=== PATIENT | male | born 1950 | race Caucasian/White ===

== ENCOUNTER 2017-07-20 18:49 | Inpatient (IN) | payer MEDICARE, MEDICAID ==
[2017-07-20 19:32] LABS: ABS Basophils 0.1 10^3/ul (0-0.2); ABS Eosinophils 0 10^3/ul (0-0.6); ABS Lymphocytes 1.1 10^3/ul (1.0-4.8); ABS Monocytes 1.5 10^3/ul (0-0.8); ABS Neutrophils 13.5 10^3/ul (1.5-7.7); ABS Nucleated RBC 0 10^3/ul; Eosinophil % 0.2 % (0-6); Hematocrit 33 % (42-52); Mean Corpuscular HGB Conc 33 g/dl (31-36); Mean Corpuscular Hemoglobin 27 pg (27-31); Mean Corpuscular Volume 81 fL (80-94); Mean Platelet Volume 8 um3 (7.4-10.4); Nucleated Red Blood Cells % 0; Platelet Count 288 10^3/ul (150-450); Red Cell Distribution Width 14 % (10.5-15); White Blood Count 16.2 10^3/ul (3.5-10.8)
[2017-07-20 19:40] LABS: INR 1.24 (0.77-1.02)
[2017-07-20 19:45] LABS: EGFR Non-African American 73.3 (>60)
--- NOTE | 2017-07-20 20:00 | RAD ---
Indication: Sepsis. Diabetic with prior lower extremity amputations. Comparison: No relevant prior exams available on the [facility] [place] for comparison. Technique: Upright AP 1930 hours Report: 0.8 cm nodule at the LEFT upper lung zone versus focus of costochondral calcification at the third rib. The lungs and pleural spaces are otherwise clear. The heart, pulmonary vasculature, and mediastinal contours are unremarkable. Negative for free air beneath the diaphragm. IMPRESSION: 1. No evidence for pneumonia. 2. Potential 0.8 cm LEFT upper lung zone pulmonary nodule. In absence of prior exams to document stability consider nonemergent oblique and apical lordotic radiographs or CT for further assessment.
[2017-07-20] MEDS ORDERED: Albuterol 2.5 MG/3 ML NEB.SOL* (0.083%) INH PRN (20:12)
[2017-07-20] MEDS ORDERED: Acetaminophen TAB* 325 MG PO PRN (20:12)
[2017-07-20] MEDS ORDERED: oxyCODONE TAB* 5 MG TAB PO PRN (20:12)
[2017-07-20] MEDS ORDERED: Ondansetron INJ* 2 MG/ML VIAL IV PRN (20:12)
[2017-07-20] MEDS ORDERED: CMCS: Melatonin (NF) 3 MG TAB PO PRN (20:12)
[2017-07-20] MEDS ORDERED: Gadoteridol* (CONTRAST) 279.3 MG/ML 10 ML IV ONE (20:30)
[2017-07-20] MEDS ORDERED: Vancomycin per Pharmacy* NOTE FOLLOW UP SCH (21:00)
[2017-07-20] MEDS ORDERED: Vancomycin(*) 1,250 MG IV x ONCE IVPB ONE ×2 (21:00)
--- NOTE | 2017-07-20 21:53 | RAD ---
Indication: Possible septic emboli. Assess for osteomyelitis of the RIGHT ankle and foot. Comparison: No relevant prior exams available on the [facility] PACS for comparison. Technique: [email or web address] [place] 1.5 Sarah [id number] with GEM suite. Noncontrast MRI of the RIGHT ankle and foot limited to multiplanar T1 and inversion recovery series. Report: Artifact most consistent with soft tissue gas at the forefoot centered at the second interdigital space extending as far proximal as the distal diaphyses as far lateral as the third interdigital space. Diffuse soft tissue edema throughout the superficial subcutaneous tissue plane as well as the intrinsic skeletal musculature of the foot and ankle as well as the visualized lower leg without evidence for a loculated abscess collection. There is bone marrow edema at the first proximal phalanx, second digit from the proximal diaphysis of the metatarsal through the distal phalanx, third digit from the base of the metatarsal through the distal phalanx, fourth digit from the distal metaphysis of the metatarsal through the distal phalanx. Only limited partial decrease in normal T1 marrow intensity in the same distribution. Negative for bone marrow edema at the medial aspect of the medial cuneiform and the mid to medial aspect of the navicula without compelling decreased T1 marrow hyperintensity. No fracture evident. Negative for significant joint effusions. IMPRESSION: 1. Extensive soft tissue inflammatory change involving the subcutaneous tissue plane and skeletal musculature of the visualized ankle and foot with associated soft tissue gas at the forefoot as described. No loculated abscess collection evident. 2. Given the clinical context the constellation of signal abnormalities is most consistent with osteomyelitis at the forefoot involving the first, second, third, and fourth digits to varying extents as described. Less compelling marrow signal change at the medial cuneiform and navicular may represent reactive marrow edema or early osteomyelitis.
--- NOTE | 2017-07-20 21:53 | RAD ---
Indication: Possible septic emboli. Assess for osteomyelitis of the RIGHT ankle and foot. Comparison: No relevant prior exams available on the [facility] [place] for comparison. Technique: [employer] [place] 1.5 Sarah [id number] with GEM suite. Noncontrast MRI of the RIGHT ankle and foot limited to multiplanar T1 and inversion recovery series. Report: Artifact most consistent with soft tissue gas at the forefoot centered at the second interdigital space extending as far proximal as the distal diaphyses as far lateral as the third interdigital space. Diffuse soft tissue edema throughout the superficial subcutaneous tissue plane as well as the intrinsic skeletal musculature of the foot and ankle as well as the visualized lower leg without evidence for a loculated abscess collection. There is bone marrow edema at the first proximal phalanx, second digit from the proximal diaphysis of the metatarsal through the distal phalanx, third digit from the base of the metatarsal through the distal phalanx, fourth digit from the distal metaphysis of the metatarsal through the distal phalanx. Only limited partial decrease in normal T1 marrow intensity in the same distribution. Negative for bone marrow edema at the medial aspect of the medial cuneiform and the mid to medial aspect of the navicula without compelling decreased T1 marrow hyperintensity. No fracture evident. Negative for significant joint effusions. IMPRESSION: 1. Extensive soft tissue inflammatory change involving the subcutaneous tissue plane and skeletal musculature of the visualized ankle and foot with associated soft tissue gas at the forefoot as described. No loculated abscess collection evident. 2. Given the clinical context the constellation of signal abnormalities is most consistent with osteomyelitis at the forefoot involving the first, second, third, and fourth digits to varying extents as described. Less compelling marrow signal change at the medial cuneiform and navicular may represent reactive marrow edema or early osteomyelitis.
--- NOTE | 2017-07-20 22:28 | ED ---
Osiel Maria Julia, scribed for Chris Costello MD on 07/20/17 at 1919 . Complex/Multi-Sys Presentation - HPI Summary HPI Summary: This patient is a 67 year [facility] chief [facility] of R gangrenous toes. Patient arrived from [facility] ED after patient went to his PCP this morning after adult protective services intervention. The patient rates the pain 2/10 in severity. Patient reports fever. - History Of Current Complaint Time Seen by Provider: 07/20/17 18:58 Hx Obtained From: Patient Timing: Constant Severity Currently: Mild - 2/10 pain intensity Location: Pain At: - R foot Associated Signs And Symptoms: Positive: Fever - Allergies/Home Medications Allergies/Adverse Reactions: Allergies Allergy/AdvReac Type Severity Reaction Status Date / Time contrast dye Allergy Unknown Uncoded 07/20/17 19:10 Reaction Details Home Medications: Home Medications NK [No Home Medications Reported] 07/20/17 [History Confirmed 07/20/17] PMH/Surg Hx/FS Hx/Imm Hx Endocrine/Hematology History: Reports: Hx Diabetes Musculoskeletal History: Reports: Hx Orthopedic Injury - removal of R hand Infectious Disease History: No Infectious Disease History: Denies: Traveled Outside the [place] in Last 30 Days - Social History Alcohol Use: None Hx Substance Use: No Hx Tobacco Use: Yes Smoking Status (MU): Current Every Day Smoker Review of Systems Positive: Fever. Negative: Chills Negative: Erythema Negative: Sore Throat Negative: Chest Pain Negative: Shortness Of Breath, Cough Negative: Abdominal Pain, Vomiting, Nausea Negative: dysuria, hematuria Positive: Other - R foot pain. Negative: Myalgia, Edema Negative: Rash Neurological: Other - negative - dizziness All Other Systems Reviewed And Are Negative: Yes Physical Exam - Summary Physical Exam Summary: NORMAL PHYSICAL EXAM ADULT (6+ years) Constitutional: Well-developed, Well-nourished, Alert. (-) Distressed Skin: Warm, Dry HENT: Normocephalic; Atraumatic Eyes: Conjunctiva normal Neck: Musculoskeletal ROM normal neck. (-) JVD, (-) Stridor, (-) Tracheal deviation Cardio: Rhythm regular, rate normal, Heart sounds normal; Intact distal pulses; The pedal pulses are 2+ and symmetric. Radial pulses are 2+ and symmetric. (-) Murmur Pulmonary/Chest wall: Effort normal. (-) Respiratory distress, (-) Wheezes, (-) Rales Abd: Soft, (-) Tenderness, (-) Distension, (-) Guarding, (-) Rebound Musculoskeletal: 2nd and 3rd toe completely necrotic, Necrosis over plantar aspect of metatarsals, desquamation and erythema up to ankle Lymph: (-) Cervical adenopathy Neuro: Alert, Oriented x3 Psych: Mood and affect Normal Vital Signs On Initial Exam: Initial Vitals Temp Pulse Resp BP Pulse Ox 97.4 F 89 16 146/68 97 07/20/17 19:03 07/20/17 19:03 07/20/17 19:03 07/20/17 19:03 07/20/17 19:03 Diagnostics - Vital Signs Vital Signs Temp Pulse Resp BP Pulse Ox 07/20/17 19:03 97.4 F 89 16 146/68 97 - Laboratory Lab Results: Lab Results 07/20/17 07/20/17 07/20/17 Range/Units 19:15 19:15 19:15 WBC 16.2 H (3.5-10.8) 10^3/ul RBC 4.10 (4.0-5.4) 10^6/ul Hgb 11.0 L (14.0-18.0) g/dl Hct 33 L (42-52) % MCV 81 (80-94) fL MCH 27 (27-31) pg MCHC 33 (31-36) g/dl RDW 14 (10.5-15) % Plt Count 288 (150-450) 10^3/ul MPV 8 (7.4-10.4) um3 Neut % (Auto) 83.5 H (38-83) % Lymph % (Auto) 7.0 L (25-47) % [place] % (Auto) 9.0 (1-9) % Eos % (Auto) 0.2 (0-6) % Baso % (Auto) 0.3 (0-2) % Absolute Neuts (auto) 13.5 H (1.5-7.7) 10^3/ul Absolute Lymphs (auto) 1.1 (1.0-4.8) 10^3/ul Absolute Monos (auto) 1.5 H (0-0.8) 10^3/ul Absolute Eos (auto) 0 (0-0.6) 10^3/ul Absolute Basos (auto) 0.1 (0-0.2) 10^3/ul Absolute Nucleated RBC 0 10^3/ul Nucleated RBC % 0 ESR (0-40) mm/Hr INR (Anticoag Therapy) 1.24 H (0.77-1.02) APTT 31.9 (26.0-36.3) seconds Sodium 129 L (133-145) mmol/L Potassium 4.1 (3.5-5.0) mmol/L Chloride 98 L (101-111) mmol/L Carbon Dioxide 22 (22-32) mmol/L Anion Gap 9 (2-11) mmol/L BUN 21 (6-24) mg/dL Creatinine 1.02 (0.67-1.17) mg/dL Est GFR ( Amer) 94.3 (>60) Est GFR (Non-Af Amer) 73.3 (>60) BUN/Creatinine Ratio 20.6 H (8-20) Glucose 221 H (70-100) mg/dL Hemoglobin A1c (4.0-5.6) % Lactic Acid (0.5-2.0) mmol/L Calcium 7.8 L (8.6-10.3) mg/dL Total Bilirubin 0.70 (0.2-1.0) mg/dL AST 23 (13-39) U/L ALT 19 (7-52) U/L Alkaline Phosphatase 112 H (34-104) U/L Troponin I 0.02 (<0.04) ng/mL C-Reactive Protein 217.65 H (< 5.00) mg/L Total Protein 6.1 L (6.4-8.9) g/dL Albumin 2.4 L (3.2-5.2) g/dL Globulin 3.7 (2-4) g/dL Albumin/Globulin Ratio 0.6 L (1-3) Prealbumin 4 L (18-38) mg/dL 07/20/17 07/20/17 07/20/17 Range/Units 19:15 19:15 19:15 WBC (3.5-10.8) 10^3/ul RBC (4.0-5.4) 10^6/ul Hgb (14.0-18.0) g/dl Hct (42-52) % MCV (80-94) fL MCH (27-31) pg MCHC (31-36) g/dl RDW (10.5-15) % Plt Count (150-450) 10^3/ul MPV (7.4-10.4) um3 Neut % (Auto) (38-83) % Lymph % (Auto) (25-47) % [place] % (Auto) (1-9) % Eos % (Auto) (0-6) % Baso % (Auto) (0-2) % Absolute Neuts (auto) (1.5-7.7) 10^3/ul Absolute Lymphs (auto) (1.0-4.8) 10^3/ul Absolute Monos (auto) (0-0.8) 10^3/ul Absolute Eos (auto) (0-0.6) 10^3/ul Absolute Basos (auto) (0-0.2) 10^3/ul Absolute Nucleated RBC 10^3/ul Nucleated RBC % ESR 115 H (0-40) mm/Hr INR (Anticoag Therapy) (0.77-1.02) APTT (26.0-36.3) seconds Sodium (133-145) mmol/L Potassium (3.5-5.0) mmol/L Chloride (101-111) mmol/L Carbon Dioxide (22-32) mmol/L Anion Gap (2-11) mmol/L BUN (6-24) mg/dL Creatinine (0.67-1.17) mg/dL Est GFR ( Amer) (>60) Est GFR (Non-Af Amer) (>60) BUN/Creatinine Ratio (8-20) Glucose (70-100) mg/dL Hemoglobin A1c 8.8 H (4.0-5.6) % Lactic Acid 0.9 (0.5-2.0) mmol/L Calcium (8.6-10.3) mg/dL Total Bilirubin (0.2-1.0) mg/dL AST (13-39) U/L ALT (7-52) U/L Alkaline Phosphatase (34-104) U/L Troponin I (<0.04) ng/mL C-Reactive Protein (< 5.00) mg/L Total Protein (6.4-8.9) g/dL Albumin (3.2-5.2) g/dL Globulin (2-4) g/dL Albumin/Globulin Ratio (1-3) Prealbumin (18-38) mg/dL Result Diagrams: 07/20/17 19:15 07/20/17 19:15 Lab Statement: Any lab studies that have been ordered have been reviewed, and results considered in the medical decision making process. - Radiology CXR Radiology Interpretation Completed By: Radiologist - 1. No evidence for pneumonia. 2. Potential 0.8 cm LEFT upper lung zone pulmonary nodule. In absence of prior exams to document stability consider nonemergent oblique and apical lordotic radiographs or CT for further assessment. ED Physician has reviewed this report. - EKG 19:13 Cardiac Rate: NL EKG Rhythm: Sinus Rhythm - at 85 BPM EKG Interpretation: reveals RBBB and no presnt STEMI Complex Multi-Symp Course/Dx - Diagnoses Provider Diagnoses: Gangrene of foot, Sepsis - Physician Notifications Discussed Care Of Patient With: Dr. Jacob, orthopedics - Orthopedics Time Discussed With Above Provider: 07:51 Instructed by Provider To: Other - recommends hospitalist admission Discharge - Discharge Plan Condition: Good Disposition: ADMITTED TO [facility] Referrals: Ashish Cavanaugh DO [Primary Care Provider] - The documentation as recorded by the Osiel islas Julia accurately reflects the service I personally performed and the decisions made by , Chris Costello MD.
[2017-07-20] MEDS: fentaNYL* 50 MCG/ML 2 ML VIAL (100 MCG VIAL) IV SLOW PU PRN (23:51)
[2017-07-21] MEDS: NS 0.9% 1000 ML* 1,000 ML IV SCH ×2 (00:15→13:35)
[2017-07-21] MEDS: Docusate CAP* 100 MG PO SCH ×3 (00:16→21:51)
[2017-07-21] MEDS: Vancomycin(*) 1,000 MG in NS 0.9% 250 ML* 250 ML IVPB SCH ×3 (02:38→19:46)
[2017-07-21] MEDS: fentaNYL* 50 MCG/ML 2 ML VIAL (100 MCG VIAL) IV SLOW PU PRN (02:47)
--- NOTE | 2017-07-21 03:29 | HP ---
H&P (Free Text) History and Physical: PCP: Suha Cavanaugh MD Date/Time: 07/20/20171999 CC: 'My foot's rotting.' HPI: Mr Subramanian is a 67YO exceedingly poor historian HX DM2 & HTN who had not seen his PCP for ~1 year and reports having run out of all his medications ~ 2months ago. He was reportedly brought to [facility] ED by APS with a fever of 101.3F and tachycardia the 110s. He was felt to be severely septic due to a diabetic foot ulcer and Mar Jacob MD orthopedic surgery was consulted and accepted transfer ED to ED with our OR team notified. However upon arrival he was not meeting sepsis criteria and so the Hospitalist service was consulted for initial management. Mr Subramanian first reported his right foot began to look bad 'about a week ago', but when informed it appeared to have been going on longer admits 'maybe 3 or 4 weeks'. The 2nd & 3rd toes are black with dry gangrene and the entire foot is angry red. Eschar extends to the base of the toes dorsally and to the mid- plantar area. He denies pain, but admits to F/C & sweats recently but cannot give a more accurate time. He denies N/V, diarrhea, chest pain, SOB, palpitations, or other issues. He was given 2gm cefepime and 1500mg vancomycin prior to transfer. 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 L 1st toe amputation SocHx: 1/2 PPD hand-rolled cigarettes, denies alcohol & recreational drugs currently but admits to remote HX of 'speed'; , lives alone, 4 daughters (one from poisoning), 1 son (estranged); disabled; full code status FamHx: reviewed, non-contributory to his presentation ROS: as above, otherwise reviewed and all were negative vitals: Vital Signs Temp 36.9 C 07/20/17 23:24 Pulse 74 07/20/17 23:24 Resp 18 07/21/17 02:47 BP 125/65 07/20/17 23:24 Pulse Ox 97 07/20/17 23:24 Intake & Output 07/20/17 07/20/17 07/21/17 11:59 23:59 11:59 Weight 80.286 kg Constitutional: NAD, normally developed, well-nourished, unkempt, malodorous white male HEENM: atraumatic; sclera/conjunctiva: anicteric/clear; hearing: clinically mildly decreased; oropharynx: clear, mucosa tacky Neck: soft tissue: non-tender; thyroid: normal Pulmonary: clear to auscultation bilaterally, fair to good aeration, no accessory muscle use CV: RR/RR, normal S1S2, no carotid bruit, no jugular venous distention, 1+DP L, absent pedal pulses on R, 1+ R pedal edema Abdominal: soft, non-distended, non-tender, no rebound/guarding/rigidity, normoactive bowel sounds, no hepatosplenomegaly or masses, no costovertebral angle tenderness Musculoskeletal: general: R below the elbow amputation, L 1st toe amputation Integumental: R 2nd & 3rd toes are black with dry gangrene and the entire foot is angry red. Eschar extends to the base of the toes dorsally and to the mid- plantar area. Psychiatric orientation: AA&O to PPS affect: uninterested mood: cooperative eye contact: fair content: questionable reliability responses: timely, lacking expressions of understanding of the seriousness of the situation insight: very poor Testing: Lab Results 07/20/17 07/20/17 07/20/17 Range/Units 19:15 19:15 19:15 WBC 16.2 H (3.5-10.8) 10^3/ul RBC 4.10 (4.0-5.4) 10^6/ul Hgb 11.0 L (14.0-18.0) g/dl Hct 33 L (42-52) % MCV 81 (80-94) fL MCH 27 (27-31) pg MCHC 33 (31-36) g/dl RDW 14 (10.5-15) % Plt Count 288 (150-450) 10^3/ul MPV 8 (7.4-10.4) um3 Neut % (Auto) 83.5 H (38-83) % Lymph % (Auto) 7.0 L (25-47) % [place] % (Auto) 9.0 (1-9) % Eos % (Auto) 0.2 (0-6) % Baso % (Auto) 0.3 (0-2) % Absolute Neuts (auto) 13.5 H (1.5-7.7) 10^3/ul Absolute Lymphs (auto) 1.1 (1.0-4.8) 10^3/ul Absolute Monos (auto) 1.5 H (0-0.8) 10^3/ul Absolute Eos (auto) 0 (0-0.6) 10^3/ul Absolute Basos (auto) 0.1 (0-0.2) 10^3/ul Absolute Nucleated RBC 0 10^3/ul Nucleated RBC % 0 ESR (0-40) mm/Hr INR (Anticoag Therapy) 1.24 H (0.77-1.02) APTT 31.9 (26.0-36.3) seconds Sodium 129 L (133-145) mmol/L Potassium 4.1 (3.5-5.0) mmol/L Chloride 98 L (101-111) mmol/L Carbon Dioxide 22 (22-32) mmol/L Anion Gap 9 (2-11) mmol/L BUN 21 (6-24) mg/dL Creatinine 1.02 (0.67-1.17) mg/dL Est GFR ( Amer) 94.3 (>60) Est GFR (Non-Af Amer) 73.3 (>60) BUN/Creatinine Ratio 20.6 H (8-20) Glucose 221 H (70-100) mg/dL Hemoglobin A1c (4.0-5.6) % Lactic Acid (0.5-2.0) mmol/L Calcium 7.8 L (8.6-10.3) mg/dL Total Bilirubin 0.70 (0.2-1.0) mg/dL AST 23 (13-39) U/L ALT 19 (7-52) U/L Alkaline Phosphatase 112 H (34-104) U/L Troponin I 0.02 (<0.04) ng/mL C-Reactive Protein 217.65 H (< 5.00) mg/L Total Protein 6.1 L (6.4-8.9) g/dL Albumin 2.4 L (3.2-5.2) g/dL Globulin 3.7 (2-4) g/dL Albumin/Globulin Ratio 0.6 L (1-3) Prealbumin 4 L (18-38) mg/dL 07/20/17 07/20/17 07/20/17 Range/Units 19:15 19:15 19:15 WBC (3.5-10.8) 10^3/ul RBC (4.0-5.4) 10^6/ul Hgb (14.0-18.0) g/dl Hct (42-52) % MCV (80-94) fL MCH (27-31) pg MCHC (31-36) g/dl RDW (10.5-15) % Plt Count (150-450) 10^3/ul MPV (7.4-10.4) um3 Neut % (Auto) (38-83) % Lymph % (Auto) (25-47) % [place] % (Auto) (1-9) % Eos % (Auto) (0-6) % Baso % (Auto) (0-2) % Absolute Neuts (auto) (1.5-7.7) 10^3/ul Absolute Lymphs (auto) (1.0-4.8) 10^3/ul Absolute Monos (auto) (0-0.8) 10^3/ul Absolute Eos (auto) (0-0.6) 10^3/ul Absolute Basos (auto) (0-0.2) 10^3/ul Absolute Nucleated RBC 10^3/ul Nucleated RBC % ESR 115 H (0-40) mm/Hr INR (Anticoag Therapy) (0.77-1.02) APTT (26.0-36.3) seconds Sodium (133-145) mmol/L Potassium (3.5-5.0) mmol/L Chloride (101-111) mmol/L Carbon Dioxide (22-32) mmol/L Anion Gap (2-11) mmol/L BUN (6-24) mg/dL Creatinine (0.67-1.17) mg/dL Est GFR ( Amer) (>60) Est GFR (Non-Af Amer) (>60) BUN/Creatinine Ratio (8-20) Glucose (70-100) mg/dL Hemoglobin A1c 8.8 H (4.0-5.6) % Lactic Acid 0.9 (0.5-2.0) mmol/L Calcium (8.6-10.3) mg/dL Total Bilirubin (0.2-1.0) mg/dL AST (13-39) U/L ALT (7-52) U/L Alkaline Phosphatase (34-104) U/L Troponin I (<0.04) ng/mL C-Reactive Protein (< 5.00) mg/L Total Protein (6.4-8.9) g/dL Albumin (3.2-5.2) g/dL Globulin (2-4) g/dL Albumin/Globulin Ratio (1-3) Prealbumin (18-38) mg/dL ECG, personally reviewed: sinus RBBB rate 85, T-wave inversions V1-3/III; no comparison CXR, personally reviewed: IMPRESSION: 1. No evidence for pneumonia. 2. Potential 0.8 cm LEFT upper lung zone pulmonary nodule. In absence of prior exams to document stability consider nonemergent oblique and apical lordotic radiographs or CT for further assessment. MRI RLE & ankle WO, personally reviewed: IMPRESSION: 1. Extensive soft tissue inflammatory change involving the subcutaneous tissue plane and skeletal musculature of the visualized ankle and foot with associated soft tissue gas at the forefoot as described. No loculated abscess collection evident. 2. Given the clinical context the constellation of signal abnormalities is most consistent with osteomyelitis at the forefoot involving the first, second, third, and fourth digits to varying extents as described. Less compelling marrow signal change at the medial cuneiform and navicular may represent reactive marrow edema or early osteomyelitis. Impression: 67M HX DM2, CAD, PAOD, HTN presents with severe diabetic foot infection w/ osteomyelitis & dry gangrene Discussion: Given the likelihood of a non-emergent amputation, it would be highly advantageous and appears time is available to thoroughly address his cardiac status and severe protein-calorie malnutrition prior to any procedure. 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
--- NOTE | 2017-07-21 03:57 | CONS ---
CONSULTATION REPORT: DATE OF CONSULT: 07/20/17 ATTENDING PHYSICIAN: Bri Jacob MD. CONSULTING PHYSICIAN: Jarvis Faye MD. CHIEF COMPLAINT: Right foot infection and gangrene. HISTORY OF PRESENT ILLNESS: Hao is a 67-year-old poorly controlled brittle diabetic who presents with possibly 3 to 4-week's history of right second and third black toes with cellulitis extending proximally. He was initially seen at [facility] after Adult Protective Services brought him for evaluation. He states that he has had his toes crossing over for some time and there are wounds that were cut. He was unable to find anyone that would cut his toenails. He noticed that it started to get darker. He has been walking a lot around [place] and [facility] to go do his errands. Adult Protective Services brought him to [facility]. [facility] evaluated him. He had a temperature of 101.3 with an elevated white count, lactic acid of 4, tachycardic and he met sepsis criteria. He was transferred here. He was started on vanco and cefepime. He was given 3 L of fluid and transferred here to [facility] for possible acute amputation due to sepsis from his diabetic gangrenous foot. He states that he is feeling a little bit better. He is currently afebrile. He is talkative. He is not having a lot of pain. PAST MEDICAL HISTORY: Significant for uncontrolled diabetes. He is unable to give me a good accurate history. He denies any heart attacks or GI issues. 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 ALLERGIES: CONTRAST DYE. SOCIAL HISTORY: He lives alone in an apartment. He smokes cigarettes that he rolls on his own. He smokes about 2 a day. He denies alcohol. He used to smoke marijuana. He is a community ambulator. REVIEW OF SYSTEMS: A 14-point review of systems reviewed with the patient. It is negative for recent fevers, right toe wound. No chest pain, shortness of breath. A 14-point review of systems remainder is otherwise negative. PHYSICAL EXAM: Vitals as of 7:03 p.m. today demonstrate a temperature of 97.4, pulse rate 89, respiratory rate 16, O2 saturation 97, blood pressure 146/68. He is on room air. He is in no acute distress. He is well-developed, well- nourished. He is alert and oriented x3. He is pleasant with normal affect. Examination of the right foot demonstrates a cellulitis extending proximally to the lower third of the tibia anteriorly. There is obvious gangrene of the second and third toes extending proximally to the plantar aspect of his metatarsal head. There are no palpable pulses. His skin is sloughing. He is able to flex and extend his toes and ankle without much difficulty. There are no other open wounds. There is no obvious drainage. IMAGING: X-rays that were obtained at [facility] were reviewed and demonstrates a small amount of gas in the toes, which is not unexpected but no fracture or dislocation. LABORATORY DATA: Labs obtained here are limited because the full labs were not obtained, but white count is 16.2, hematocrit is 33, platelet count 288. BMP, INR, ESR, CRP, hemoglobin A1c are all pending. ASSESSMENT AND PLAN: He is currently not septic and has right foot gangrenous toes with cellulitis extending proximally. He has responded already to vanco and cefepime and 3 L of fluid. At this point, we will treat him conservatively to try to control this superficial infection. We will order other imaging studies including ankle and foot MRIs with and without contrast as well as ankle brachial indices. We will continue to follow the patient. Ultimately Dr. Barth may do an amputation Sunday, but he will be admitted for monitoring closely by the Medicine consult team. [id number]/[facility] #: [id number] NICOLE
[2017-07-21 05:21] LABS: ABS Basophils 0.2 10^3/ul (0-0.2); ABS Eosinophils 0.2 10^3/ul (0-0.6); ABS Lymphocytes 1.7 10^3/ul (1.0-4.8); ABS Monocytes 1.3 10^3/ul (0-0.8); ABS Neutrophils 11.4 10^3/ul (1.5-7.7); ABS Nucleated RBC 0 10^3/ul; Eosinophil % 1.7 % (0-6); Hematocrit 34 % (42-52); Hemoglobin 11.1 g/dl (14.0-18.0); Lymphocyte % 11.2 % (25-47); Mean Corpuscular HGB Conc 33 g/dl (31-36); Mean Corpuscular Hemoglobin 27 pg (27-31); Mean Corpuscular Volume 82 fL (80-94); Mean Platelet Volume 8 um3 (7.4-10.4); Nucleated Red Blood Cells % 0; Platelet Count 294 10^3/ul (150-450); Red Blood Count 4.16 10^6/ul (4.0-5.4); Red Cell Distribution Width 14 % (10.5-15); White Blood Count 14.9 10^3/ul (3.5-10.8)
[2017-07-21 05:29] LABS: INR 1.18 (0.77-1.02)
[2017-07-21 05:32] LABS: Urine Appearance Cloudy; Urine Blood 1+ (Negative); Urine Color Amber; Urine Ketones Trace (Negative); Urine Protein 2+(100 mg/dL) (Negative); Urine Specific Gravity 1.021 (1.010-1.030); Urine Urobilinogen Negative (Negative)
[2017-07-21 05:36] LABS: EGFR Non-African American 89.2 (>60)
[2017-07-21] MEDS: Omeprazole CAP* 20 MG PO SCH (06:11)
[2017-07-21] MEDS: Heparin VIAL(*) 5000 UNITS/ML VIAL (FIVE THOUSAND) SUBCUT SCH ×3 (06:11→21:53)
[2017-07-21] MEDS: Cefepime 2 GM in Dextrose(*) 2 GM/50 ML BAG IV SCH ×2 (06:12→16:13)
[2017-07-21] MEDS: Insulin LISPRO* 1 UNITS UNIT SUBCUT SCH ×4 (09:06→21:53)
--- NOTE | 2017-07-21 09:39 | PN ---
Progress Note - Progress Note Date of Service: 07/21/17 SOAP: Subjective: Pt seen and examined. Feeling soreness and some pain in foot. Less odor. Feels ok otherwise. Denies SOB, CP. Objective: Temp Pulse Resp BP Pulse Ox 97.8 F 92 20 132/63 97 07/21/17 07:40 07/21/17 07:40 07/21/17 07:40 07/21/17 07:40 07/21/17 07:40 NAD. right foot with black 2nd and 3rd toe. erythema reduced but marked anteriorly. able to flex/ext toes, dorsiflex/plantarflex ankle. densely neuropathic. Laboratory Results - last 24 hr 07/20/17 07/20/17 07/20/17 19:15 19:15 19:15 WBC 16.2 H RBC 4.10 Hgb 11.0 L Hct 33 L MCV 81 MCH 27 MCHC 33 RDW 14 Plt Count 288 MPV 8 Neut % (Auto) 83.5 H Lymph % (Auto) 7.0 L Nye % (Auto) 9.0 Eos % (Auto) 0.2 Baso % (Auto) 0.3 Absolute Neuts (auto) 13.5 H Absolute Lymphs (auto) 1.1 Absolute Monos (auto) 1.5 H Absolute Eos (auto) 0 Absolute Basos (auto) 0.1 Absolute Nucleated RBC 0 Nucleated RBC % 0 ESR INR (Anticoag Therapy) 1.24 H APTT 31.9 Sodium 129 L Potassium 4.1 Chloride 98 L Carbon Dioxide 22 Anion Gap 9 BUN 21 Creatinine 1.02 Est GFR ( Amer) 94.3 Est GFR (Non-Af Amer) 73.3 BUN/Creatinine Ratio 20.6 H Glucose 221 H POC Glucose (mg/dL) Hemoglobin A1c Lactic Acid Calcium 7.8 L Total Bilirubin 0.70 AST 23 ALT 19 Alkaline Phosphatase 112 H Troponin I 0.02 C-Reactive Protein 217.65 H Total Protein 6.1 L Albumin 2.4 L Globulin 3.7 Albumin/Globulin Ratio 0.6 L Prealbumin 4 L Urine Color Urine Appearance Urine pH Ur Specific [place] Urine Protein Urine Ketones Urine Blood Urine Nitrate Urine Bilirubin Urine Urobilinogen Ur Leukocyte Esterase Urine WBC (Auto) Urine RBC (Auto) Urine Bacteria Hyaline Casts Urine Glucose 07/20/17 07/20/17 07/20/17 19:15 19:15 19:15 WBC RBC Hgb Hct MCV MCH MCHC RDW Plt Count MPV Neut % (Auto) Lymph % (Auto) Nye % (Auto) Eos % (Auto) Baso % (Auto) Absolute Neuts (auto) Absolute Lymphs (auto) Absolute Monos (auto) Absolute Eos (auto) Absolute Basos (auto) Absolute Nucleated RBC Nucleated RBC % ESR 115 H INR (Anticoag Therapy) APTT Sodium Potassium Chloride Carbon Dioxide Anion Gap BUN Creatinine Est GFR ( Amer) Est GFR (Non-Af Amer) BUN/Creatinine Ratio Glucose POC Glucose (mg/dL) Hemoglobin A1c 8.8 H Lactic Acid 0.9 Calcium Total Bilirubin AST ALT Alkaline Phosphatase Troponin I C-Reactive Protein Total Protein Albumin Globulin Albumin/Globulin Ratio Prealbumin Urine Color Urine Appearance Urine pH Ur Specific [place] Urine Protein Urine Ketones Urine Blood Urine Nitrate Urine Bilirubin Urine Urobilinogen Ur Leukocyte Esterase Urine WBC (Auto) Urine RBC (Auto) Urine Bacteria Hyaline Casts Urine Glucose 07/21/17 07/21/17 07/21/17 05:06 05:06 05:06 WBC 14.9 H RBC 4.16 Hgb 11.1 L Hct 34 L MCV 82 MCH 27 MCHC 33 RDW 14 Plt Count 294 MPV 8 Neut % (Auto) 76.8 Lymph % (Auto) 11.2 L Nye % (Auto) 8.9 Eos % (Auto) 1.7 Baso % (Auto) 1.4 Absolute Neuts (auto) 11.4 H Absolute Lymphs (auto) 1.7 Absolute Monos (auto) 1.3 H Absolute Eos (auto) 0.2 Absolute Basos (auto) 0.2 Absolute Nucleated RBC 0 Nucleated RBC % 0 ESR INR (Anticoag Therapy) 1.18 H APTT 32.6 Sodium 130 L Potassium 3.9 Chloride 101 Carbon Dioxide 22 Anion Gap 7 BUN 22 Creatinine 0.86 Est GFR ( Amer) 114.8 Est GFR (Non-Af Amer) 89.2 BUN/Creatinine Ratio 25.6 H Glucose 150 H POC Glucose (mg/dL) Hemoglobin A1c Lactic Acid Calcium 7.9 L Total Bilirubin AST ALT Alkaline Phosphatase Troponin I C-Reactive Protein Total Protein Albumin Globulin Albumin/Globulin Ratio Prealbumin Urine Color Urine Appearance Urine pH Ur Specific [place] Urine Protein Urine Ketones Urine Blood Urine Nitrate Urine Bilirubin Urine Urobilinogen Ur Leukocyte Esterase Urine WBC (Auto) Urine RBC (Auto) Urine Bacteria Hyaline Casts Urine Glucose 07/21/17 07/21/17 07/21/17 05:06 05:09 08:01 WBC RBC Hgb Hct MCV MCH MCHC RDW Plt Count MPV Neut % (Auto) Lymph % (Auto) Nye % (Auto) Eos % (Auto) Baso % (Auto) Absolute Neuts (auto) Absolute Lymphs (auto) Absolute Monos (auto) Absolute Eos (auto) Absolute Basos (auto) Absolute Nucleated RBC Nucleated RBC % ESR INR (Anticoag Therapy) APTT Sodium Potassium Chloride Carbon Dioxide Anion Gap BUN Creatinine Est GFR ( Amer) Est GFR (Non-Af Amer) BUN/Creatinine Ratio Glucose POC Glucose (mg/dL) 168 H Hemoglobin A1c Lactic Acid 0.8 Calcium Total Bilirubin AST ALT Alkaline Phosphatase Troponin I C-Reactive Protein Total Protein Albumin Globulin Albumin/Globulin Ratio Prealbumin Urine Color Glad[place] Urine Appearance Cloudy Urine pH 5.0 Ur Specific [place] 1.021 Urine Protein 2+(100 mg/dl) H Urine Ketones Trace H Urine Blood 1+ H Urine Nitrate Negative Urine Bilirubin Negative Urine Urobilinogen Negative Ur Leukocyte Esterase Negative Urine WBC (Auto) 2+(11-20/hpf) H Urine RBC (Auto) 2+(6-10/hpf) H Urine Bacteria Absent Hyaline Casts Present H Urine Glucose 1+(50 mg/dl) H Assessment: HD#1 with R necrotic toes and over riding cellulitis Plan: NWB. activity as tolerated cont IV abx. HGA1C pending ESR and CRP still not available MRI and ABIs today. Dr Barth to evaluate and plan for amputation/debridement on Sunday.
--- NOTE | 2017-07-21 09:41 | PN ---
Progress Note - Progress Note Date of Service: 07/21/17 Note: ESR 118 CRP 217 HgA1C 8.8
[2017-07-21] MEDS: oxyCODONE/Acetamin 5/325 MG* TAB PO PRN ×2 (13:30→21:51)
--- NOTE | 2017-07-21 14:22 | PN ---
Subjective Date of Service: 07/21/17 Interval History: Pt seen at the bedside at the bedside. States he is feeling well. Denies chest pain and denies sob. Denies pain in his foot. Admits to fever last night. ROS- denies chills, fever noted last night, denies chest pain, denies sob, denies abdominal pain, denies nausea, denies vomiting, denies lightheadedness, denies loc, review of 11 systems completed all others negative Objective Active Medications: Acetaminophen (Tylenol Tab*) 650 mg PO Q6H PRN PRN Reason: FEVER/PAIN Albuterol (Ventolin 2.5 Mg/3 Ml Neb.Celine*) 2.5 mg INH Q2H PRN PRN Reason: SOB/WHEEZING Docusate Sodium (Colace Cap*) 200 mg PO BID [facility] Last Admin: 07/21/17 09:05 Dose: 200 mg Fentanyl Citrate (Fentanyl*) 25 mcg IV SLOW PU Q2H PRN PRN Reason: PAIN Last Admin: 07/21/17 02:47 Dose: 25 mcg Heparin Sodium (Porcine) (Heparin Vial(*)) 5,000 units SUBCUT Q8HR [facility] Last Admin: 07/21/17 13:29 Dose: 5,000 units Sodium Chloride (Ns 0.9% 1000 Ml*) 1,000 mls @ 125 mls/hr IV PER RATE [facility] Last Admin: 07/21/17 13:35 Dose: 125 mls/hr Cefepime HCl (Maxipime 2 Gm In Dextrose Duplex (*)) 2 gm in 50 mls @ 100 mls/ hr IV Q12H [facility] Last Admin: 07/21/17 06:12 Dose: 100 mls/hr Vancomycin HCl 1,000 mg/ (Sodium Chloride) 250 mls @ 166.667 mls/hr IVPB Q8H [facility] Last Admin: 07/21/17 10:00 Dose: 166.667 mls/hr Insulin Human Lispro (Humalog*) 0 units SUBCUT ACHS [facility] PRN Reason: Protocol Last Admin: 07/21/17 13:30 Dose: 2 units Melatonin (Melatonin (Nf)) 3 mg PO BEDTIME PRN; Protocol PRN Reason: Sleep Omeprazole (Prilosec Cap*) 20 mg PO DAILY@0600 [facility] Last Admin: 07/21/17 06:11 Dose: 20 mg Ondansetron HCl (Zofran Inj*) 4 mg IV Q6H PRN PRN Reason: NAUSEA Oxycodone HCl (Roxycodone Tab*) 5 mg PO Q4H PRN PRN Reason: PAIN Oxycodone/Acetaminophen (Percocet 5/325 Tab*) 1 tab PO Q4H PRN PRN Reason: PAIN Last Admin: 07/21/17 13:30 Dose: 1 tab Pharmacy Consult (Vancomycin Per Pharmacy*) 1 note FOLLOW UP .VANC PER PHARMACY [facility] Pharmacy Profile Note (Vancomycin Trough Check) 1 note FOLLOW UP 173 ONE Stop: 07/21/17 17:31 Vital Signs - 8 hr 07/21/17 07/21/17 07/21/17 07:40 11:13 13:30 Temperature 97.8 F 98.3 F Pulse Rate 92 84 Respiratory 20 17 16 Rate Blood Pressure 132/63 111/54 (mmHg) O2 Sat by Pulse 97 96 Oximetry Oxygen Devices in Use Now: None Appearance: 67 y/o male patient NAD, sitting in bed, Eyes: No Scleral Icterus Ears/Nose/Mouth/Throat: NL Teeth, Lips, Gums Neck: NL Appearance and Movements; NL JVP Respiratory: Symmetrical Chest Expansion and Respiratory Effort, Clear to Auscultation Cardiovascular: NL Sounds; No Murmurs; No JVD Abdominal: NL Sounds; No Tenderness; No Distention Extremities: No Edema, - - dressing to RLE covered with kurlex purlent drainage noted on dressing, Skin: No Rash or Ulcers Neurological: Alert and Oriented x 3 Lines/Tubes/Other Access: Clean, Dry and Intact Peripheral IV Result Diagrams: 07/21/17 05:06 07/21/17 05:06 Additional Lab and Data: Lab Results 07/20/17 07/20/17 07/20/17 Range/Units 19:15 19:15 19:15 WBC 16.2 H (3.5-10.8) 10^3/ul RBC 4.10 (4.0-5.4) 10^6/ul Hgb 11.0 L (14.0-18.0) g/dl Hct 33 L (42-52) % MCV 81 (80-94) fL MCH 27 (27-31) pg MCHC 33 (31-36) g/dl RDW 14 (10.5-15) % Plt Count 288 (150-450) 10^3/ul MPV 8 (7.4-10.4) um3 Neut % (Auto) 83.5 H (38-83) % Lymph % (Auto) 7.0 L (25-47) % [place] % (Auto) 9.0 (1-9) % Eos % (Auto) 0.2 (0-6) % Baso % (Auto) 0.3 (0-2) % Absolute Neuts (auto) 13.5 H (1.5-7.7) 10^3/ul Absolute Lymphs (auto) 1.1 (1.0-4.8) 10^3/ul Absolute Monos (auto) 1.5 H (0-0.8) 10^3/ul Absolute Eos (auto) 0 (0-0.6) 10^3/ul Absolute Basos (auto) 0.1 (0-0.2) 10^3/ul Absolute Nucleated RBC 0 10^3/ul Nucleated RBC % 0 ESR (0-40) mm/Hr INR (Anticoag Therapy) 1.24 H (0.77-1.02) APTT 31.9 (26.0-36.3) seconds Sodium 129 L (133-145) mmol/L Potassium 4.1 (3.5-5.0) mmol/L Chloride 98 L (101-111) mmol/L Carbon Dioxide 22 (22-32) mmol/L Anion Gap 9 (2-11) mmol/L BUN 21 (6-24) mg/dL Creatinine 1.02 (0.67-1.17) mg/dL Est GFR ( Amer) 94.3 (>60) Est GFR (Non-Af Amer) 73.3 (>60) BUN/Creatinine Ratio 20.6 H (8-20) Glucose 221 H (70-100) mg/dL Hemoglobin A1c (4.0-5.6) % Lactic Acid (0.5-2.0) mmol/L Calcium 7.8 L (8.6-10.3) mg/dL Total Bilirubin 0.70 (0.2-1.0) mg/dL AST 23 (13-39) U/L ALT 19 (7-52) U/L Alkaline Phosphatase 112 H (34-104) U/L Troponin I 0.02 (<0.04) ng/mL C-Reactive Protein 217.65 H (< 5.00) mg/L Total Protein 6.1 L (6.4-8.9) g/dL Albumin 2.4 L (3.2-5.2) g/dL Globulin 3.7 (2-4) g/dL Albumin/Globulin Ratio 0.6 L (1-3) Prealbumin 4 L (18-38) mg/dL 07/20/17 07/20/17 07/20/17 Range/Units 19:15 19:15 19:15 WBC (3.5-10.8) 10^3/ul RBC (4.0-5.4) 10^6/ul Hgb (14.0-18.0) g/dl Hct (42-52) % MCV (80-94) fL MCH (27-31) pg MCHC (31-36) g/dl RDW (10.5-15) % Plt Count (150-450) 10^3/ul MPV (7.4-10.4) um3 Neut % (Auto) (38-83) % Lymph % (Auto) (25-47) % [place] % (Auto) (1-9) % Eos % (Auto) (0-6) % Baso % (Auto) (0-2) % Absolute Neuts (auto) (1.5-7.7) 10^3/ul Absolute Lymphs (auto) (1.0-4.8) 10^3/ul Absolute Monos (auto) (0-0.8) 10^3/ul Absolute Eos (auto) (0-0.6) 10^3/ul Absolute Basos (auto) (0-0.2) 10^3/ul Absolute Nucleated RBC 10^3/ul Nucleated RBC % ESR 115 H (0-40) mm/Hr INR (Anticoag Therapy) (0.77-1.02) APTT (26.0-36.3) seconds Sodium (133-145) mmol/L Potassium (3.5-5.0) mmol/L Chloride (101-111) mmol/L Carbon Dioxide (22-32) mmol/L Anion Gap (2-11) mmol/L BUN (6-24) mg/dL Creatinine (0.67-1.17) mg/dL Est GFR ( Amer) (>60) Est GFR (Non-Af Amer) (>60) BUN/Creatinine Ratio (8-20) Glucose (70-100) mg/dL Hemoglobin A1c 8.8 H (4.0-5.6) % Lactic Acid 0.9 (0.5-2.0) mmol/L Calcium (8.6-10.3) mg/dL Total Bilirubin (0.2-1.0) mg/dL AST (13-39) U/L ALT (7-52) U/L Alkaline Phosphatase (34-104) U/L Troponin I (<0.04) ng/mL C-Reactive Protein (< 5.00) mg/L Total Protein (6.4-8.9) g/dL Albumin (3.2-5.2) g/dL Globulin (2-4) g/dL Albumin/Globulin Ratio (1-3) Prealbumin (18-38) mg/dL Assess/Plan/Problems-Billing Assessment: 67 y/o male patient presenting to [facility] [place] with right foot wound found to have osteomyelitis of right foot, - Patient Problems (1) Diabetes Current Visit: Yes Status: Acute Priority: High Comment: a1c 8.8 continue sliding scale, records pending from PCP, has not seen pcp in over year and ran out of meds 1 year ago (2) Osteomyelitis Current Visit: Yes Status: Acute Priority: High Comment: Ortho following, id consult pending, continue iv abx for now, (3) Sepsis Current Visit: Yes Status: Acute Priority: High Comment: resolving continue ivf, iv abx, source right foot, ortho following, id consult pending (4) Abnormal EKG Current Visit: Yes Status: Acute Priority: High Comment: EKG with RBBB this may be baseling, will obtain old ekg from pcp, echo in am, pt states he can walk up flight of stairs and can walk one mile with no chest pain, if echo stable and ekg fro pcp unchange no further work up needed (5) HTN (hypertension) Current Visit: Yes Status: Acute Priority: High Comment: Bp stable will follow (6) Severe protein-calorie malnutrition Current Visit: Yes Status: Acute Priority: High Comment: pre-albumin 4 nutrition consult placed (7) DVT prophylaxis Current Visit: Yes Status: Acute Priority: High Comment: heparin sub-q (8) FEN Current Visit: Yes Status: Acute Priority: High Comment: consistent carb diet (9) Full code status Current Visit: Yes Status: Acute Priority: High Status and Disposition: Obtain records, continue iv abx, ID consult pending, await echo, nutrition consult,
[2017-07-21] MEDS ORDERED: Vancomycin Trough Check NOTE FOLLOW UP ONE (17:30)
[2017-07-22] MEDS: Vancomycin(*) 1,000 MG in NS 0.9% 250 ML* 250 ML IVPB SCH ×3 (01:45→17:45)
[2017-07-22] MEDS: Cefepime 2 GM in Dextrose(*) 2 GM/50 ML BAG IV SCH ×2 (04:16→16:04)
[2017-07-22] MEDS: NS 0.9% 1000 ML* 1,000 ML IV SCH (04:16)
[2017-07-22 05:15] LABS: ABS Basophils 0.1 10^3/ul (0-0.2); ABS Eosinophils 0.4 10^3/ul (0-0.6); ABS Lymphocytes 1.6 10^3/ul (1.0-4.8); ABS Monocytes 1.2 10^3/ul (0-0.8); ABS Neutrophils 8.2 10^3/ul (1.5-7.7); ABS Nucleated RBC 0 10^3/ul; Eosinophil % 3.1 % (0-6); Hematocrit 31 % (42-52); Lymphocyte % 13.9 % (25-47); Mean Corpuscular HGB Conc 33 g/dl (31-36); Mean Corpuscular Hemoglobin 27 pg (27-31); Mean Corpuscular Volume 81 fL (80-94); Mean Platelet Volume 8 um3 (7.4-10.4); Nucleated Red Blood Cells % 0; Platelet Count 285 10^3/ul (150-450); Red Blood Count 3.79 10^6/ul (4.0-5.4); Red Cell Distribution Width 14 % (10.5-15); White Blood Count 11.4 10^3/ul (3.5-10.8)
[2017-07-22] MEDS: oxyCODONE/Acetamin 5/325 MG* TAB PO PRN ×2 (05:42→22:13)
[2017-07-22] MEDS: Omeprazole CAP* 20 MG PO SCH (05:42)
[2017-07-22] MEDS: Heparin VIAL(*) 5000 UNITS/ML VIAL (FIVE THOUSAND) SUBCUT SCH ×3 (05:44→22:07)
--- NOTE | 2017-07-22 09:29 | RAD ---
INDICATION: Diabetic neuropathy. COMPARISON: There are no prior studies available for comparison. TECHNIQUE: Bilateral ankle brachial indices were measured and Doppler tracings were obtained at the ankle of the dorsalis pedis and posterior tibial arteries. FINDINGS: The ankle brachial index on the right was 0.61 and on the left was 0.74. The waveforms appeared decreased with a mixture of triphasic and biphasic flow within the posterior tibial and dorsalis pedis arteries. IMPRESSION: DECREASED ANKLE-BRACHIAL INDICES IN THE CLAUDICATION RANGE.
--- NOTE | 2017-07-22 09:52 | ECHO ---
Patient: GAURANG EDGAR [facility] Rec#: [id number] : 1950 Date: 07/22/2017 Age: 67y Height: 175.26 cm / 69.0 in Weight: 80.29 kg / 177.0 lbs Sex: M BSA: 1.96 Room#: [facility] Admit Date#: 07/20/2017 Type: Inpatient Referring: Jarvis Faye MD Reading: Santiago Alvarez MD Donkey Engine Firer/Fireman: Mikayla Zuniga RDCS CC: Ashish Cavanaugh DO Transthoracic Echocardiogram Indication: CAD, Pre-op BP: 138/62 HR: 79 Rhythm: NSR with PACs Findings History: DM, CAD, PVD, right arm amputation below the elbow, HTN, left great toe amputation. Technical Comments: The study quality is fair. Completed at 0915. Left Ventricle: The left ventricular chamber size is normal. Mild concentric left ventricular hypertrophy is observed. Global left ventricular wall motion and contractility are within normal limits. There is normal left ventricular systolic function. The estimated ejection fraction is 55-60%. Normal left ventricular diastolic filling is observed. Left Atrium: The left atrium is mildly dilated. Right Ventricle: Moderator Band present. The right ventricle is moderately dilated. The right ventricular global systolic function is low normal. Right Atrium: The right atrial cavity size is normal. Aortic Valve: The aortic valve is trileaflet. There is moderate thickening of the right coronary cusp. Systolic excursion of the aortic valve cusps is reduced. There is a trace of aortic regurgitation. There is borderline aortic stenosis present. Mitral Valve: There is mitral annular calcification. The mitral valve leaflets are mildly thickened. There is trace to mild mitral regurgitation. There is no evidence of mitral stenosis. Tricuspid Valve: The tricuspid valve leaflets are normal. There is moderate tricuspid regurgitation. The right ventricular systolic pressure is estimated at 56 mmHg. There is evidence of moderate pulmonary hypertension. There is no tricuspid stenosis. Pulmonic Valve: The pulmonic valve structure is not well visualized. There is a trace pulmonic regurgitation. There is no pulmonic stenosis. Pericardium: There is no significant pericardial effusion. Aorta: There is mild dilatation of the ascending aorta. There is no dilatation of the aortic arch. There is mild dilatation of the aortic root. Pulmonary Artery: The main pulmonary artery is not well visualized. Venous: The inferior vena cava is dilated. There is less than 50% respiratory change in the inferior vena cava dimension. Conclusions Global left ventricular wall motion and contractility are within normal limits. There is normal left ventricular systolic function. The estimated ejection fraction is 55-60%. The right ventricular global systolic function is low normal. There is moderate thickening of the right coronary cusp. There is a trace of aortic regurgitation. There is borderline aortic stenosis present. There is trace to mild mitral regurgitation. There is moderate tricuspid regurgitation. There is evidence of moderate pulmonary hypertension. There is no significant pericardial effusion. Measurements Name Value Normal Range RVIDd (AP) 2D 4 cm (0.9 - 2.6) RVDdMajor (2D) 5 cm (2.2 - 4.4) RAd ISD 4CH 4.6 cm (3.4 - 4.9) RA (A4C)W 4.4 cm (2.9 - 4.6) IVSd (2D) 1.3 cm (0.6 - 1) LVPWd (2D) 1.2 cm (0.6 - 1) LVIDd (2D) 5.3 cm (3.6 - 5.4) LVIDs (2D) 4.5 cm - LV FS (2D) 15 % (25 - 45) Aortic Annulus 2.2 cm (1.4 - 2.6) Ao root diameter (2D) 3.6 cm (2.1 - 3.5) Ascending Ao 3.5 cm (2.1 - 3.4) Aortic arch 2.2 cm (1.8 - 3.4) LA dimension (AP) 2D 4.3 cm (2.3 - 3.8) LAd ISD 4CH 5.5 cm (2.9 - 5.3) LA ISD 4CH W 5.3 cm (2.5 - 4.5) Name Value Normal Range LA ESV SP 4CH (A/L) 88 ml - LA ESV SP 2CH (A/L) 61 ml - LA ESV BP (A/L) 74 ml - LA ESV BP (A/L) index 38 ml/m2 - LA ESV SP 4CH (MOD) 81 ml - LA ESV SP 2CH (MOD) 59 ml - Name Value Normal Range MV E-wave Vmax 0.91 m/sec - MV deceleration time 263.2 msec - MV A-wave Vmax 0.72 m/sec - MV E:A ratio 1.28 ratio - LV septal e' Vmax 0.06 m/sec - LV lateral e' Vmax 0.07 m/sec - LV E:e' septal ratio 15.17 ratio - LV E:e' lateral ratio 13 ratio - Name Value Normal Range AV Vmax 2.1 m/sec - AV VTI 43.5 cm - AV peak gradient 17.84 mmHg - AV mean gradient 9.63 mmHg - LVOT diameter 2 cm - LVOT Vmax 0.78 m/sec - LVOT VTI 17.5 cm - LVOT peak gradient 2.4 mmHg - LVOT mean gradient 1.46 mmHg - SACHIN (continuity Vmax) 1.2 cm2 - SACHIN (continuity VTI) 1.3 cm2 - GILLES Vmax 0.82 m/sec - Name Value Normal Range TR Vmax 3.2 m/sec - TR peak gradient 41 mmHg - RAP 15 mmHg - RVSP 56 mmHg - IVC diameter 2.4 cm - Name Value Normal Range PV Vmax 1 m/sec - PV peak gradient 4.07 mmHg -
--- NOTE | 2017-07-22 10:13 | PN ---
Progress Note - Progress Note Date of Service: 07/22/17 SOAP: Subjective: [Pt seen this am sitting up in bed. Feeling soreness and some pain in foot. Feels ok otherwise. Denies SOB, CP. Objective: General: pt is A&Ox3 right foot with black 2nd and 3rd toe. erythema present anteriorly. able to flex /ext toes, dorsiflex/plantarflex ankle. densely neuropathic. Odor is apparent. Vital Signs Temp 98.3 F 07/22/17 04:13 Pulse 85 07/22/17 04:13 Resp 16 07/22/17 05:42 BP 138/62 07/22/17 04:13 Pulse Ox 98 07/22/17 04:13 Intake & Output 07/21/17 07/22/17 07/22/17 18:59 06:59 18:59 Intake Total 2253 2087.1 Output Total 700 650 300 Balance 1553 1437.1 -300 Intake: IV Fluids 956 1587.1 ABX - CEFEPIME 60.1 ABX - VANCOMYCIN 575 NS (0.9%) 956 952 IVPB 607 ABX - CEFEPIME 52 ABX - VANCOMYCIN 555 Oral 690 500 Output: Urine 700 650 300 Assessment: R necrotic toes and over riding cellulitis Plan: continue with NWB. cont IV abx. Hospitalists working up pt with echo and other imaging today . Dr Barth to evaluate and plan for amputation/debridement on Sunday. NPO after midnight
[2017-07-22] MEDS: Insulin LISPRO* 1 UNITS UNIT SUBCUT SCH ×4 (10:19→20:54)
[2017-07-22] MEDS: Docusate CAP* 100 MG PO SCH ×2 (10:24→20:51)
[2017-07-22] MEDS: fentaNYL* 50 MCG/ML 2 ML VIAL (100 MCG VIAL) IV SLOW PU PRN (11:22)
--- NOTE | 2017-07-22 16:15 | PN ---
Subjective Date of Service: 07/22/17 Interval History: Pt examined today at the bedside. He states that he is feeling well. States he feels tired today. Denies fever,. Denies chills. Denies abdominal pain. Ros- denies fever, denies chills, denies abdominal pain, denies nausea, denies vomiting, denies lightheadedness, denies loc, denies chest pain, denies sob, review of 11 systems completed all others negative, Objective Active Medications: Acetaminophen (Tylenol Tab*) 650 mg PO Q6H PRN PRN Reason: FEVER/PAIN Albuterol (Ventolin 2.5 Mg/3 Ml Neb.Celine*) 2.5 mg INH Q2H PRN PRN Reason: SOB/WHEEZING Docusate Sodium (Colace Cap*) 200 mg PO BID [facility] Last Admin: 07/22/17 10:24 Dose: 200 mg Fentanyl Citrate (Fentanyl*) 25 mcg IV SLOW PU Q2H PRN PRN Reason: PAIN Last Admin: 07/22/17 11:22 Dose: 25 mcg Heparin Sodium (Porcine) (Heparin Vial(*)) 5,000 units SUBCUT Q8HR [facility] Last Admin: 07/22/17 14:04 Dose: 5,000 units Sodium Chloride (Ns 0.9% 1000 Ml*) 1,000 mls @ 125 mls/hr IV PER RATE [facility] Last Admin: 07/22/17 04:16 Dose: 125 mls/hr Cefepime HCl (Maxipime 2 Gm In Dextrose Duplex (*)) 2 gm in 50 mls @ 100 mls/ hr IV Q12H [facility] Last Admin: 07/22/17 04:16 Dose: 100 mls/hr Vancomycin HCl 1,000 mg/ (Sodium Chloride) 250 mls @ 166.667 mls/hr IVPB Q8H [facility] Last Admin: 07/22/17 10:15 Dose: 166.667 mls/hr Insulin Human Lispro (Humalog*) 0 units SUBCUT ACHS [facility] PRN Reason: Protocol Last Admin: 07/22/17 14:02 Dose: 4 units Melatonin (Melatonin (Nf)) 3 mg PO BEDTIME PRN; Protocol PRN Reason: Sleep Omeprazole (Prilosec Cap*) 20 mg PO DAILY@0600 [facility] Last Admin: 07/22/17 05:42 Dose: 20 mg Ondansetron HCl (Zofran Inj*) 4 mg IV Q6H PRN PRN Reason: NAUSEA Oxycodone HCl (Roxycodone Tab*) 5 mg PO Q4H PRN PRN Reason: PAIN Last Admin: 07/22/17 10:24 Dose: 5 mg Oxycodone/Acetaminophen (Percocet 5/325 Tab*) 1 tab PO Q4H PRN PRN Reason: PAIN Last Admin: 07/22/17 05:42 Dose: 1 tab Pharmacy Consult (Vancomycin Per Pharmacy*) 1 note FOLLOW UP .VANC PER PHARMACY [facility] Vital Signs - 8 hr 07/22/17 07/22/17 07/22/17 10:24 11:22 15:59 Respiratory 16 16 16 Rate Oxygen Devices in Use Now: None Appearance: 67 y/o male patient NAD, sitting in bed, Eyes: No Scleral Icterus, PERRLA Ears/Nose/Mouth/Throat: NL Teeth, Lips, Gums Neck: NL Appearance and Movements; NL JVP Respiratory: Symmetrical Chest Expansion and Respiratory Effort, Clear to Auscultation Cardiovascular: NL Sounds; No Murmurs; No JVD Abdominal: NL Sounds; No Tenderness; No Distention Extremities: No Edema Skin: - - dressing to Right foot with purulent discharge, foul discharge noted, Neurological: Alert and Oriented x 3 Result Diagrams: 07/22/17 04:56 07/22/17 04:56 Additional Lab and Data: Lab Results 07/20/17 07/20/17 07/20/17 Range/Units 19:15 19:15 19:15 WBC 16.2 H (3.5-10.8) 10^3/ul RBC 4.10 (4.0-5.4) 10^6/ul Hgb 11.0 L (14.0-18.0) g/dl Hct 33 L (42-52) % MCV 81 (80-94) fL MCH 27 (27-31) pg MCHC 33 (31-36) g/dl RDW 14 (10.5-15) % Plt Count 288 (150-450) 10^3/ul MPV 8 (7.4-10.4) um3 Neut % (Auto) 83.5 H (38-83) % Lymph % (Auto) 7.0 L (25-47) % [place] % (Auto) 9.0 (1-9) % Eos % (Auto) 0.2 (0-6) % Baso % (Auto) 0.3 (0-2) % Absolute Neuts (auto) 13.5 H (1.5-7.7) 10^3/ul Absolute Lymphs (auto) 1.1 (1.0-4.8) 10^3/ul Absolute Monos (auto) 1.5 H (0-0.8) 10^3/ul Absolute Eos (auto) 0 (0-0.6) 10^3/ul Absolute Basos (auto) 0.1 (0-0.2) 10^3/ul Absolute Nucleated RBC 0 10^3/ul Nucleated RBC % 0 ESR (0-40) mm/Hr INR (Anticoag Therapy) 1.24 H (0.77-1.02) APTT 31.9 (26.0-36.3) seconds Sodium 129 L (133-145) mmol/L Potassium 4.1 (3.5-5.0) mmol/L Chloride 98 L (101-111) mmol/L Carbon Dioxide 22 (22-32) mmol/L Anion Gap 9 (2-11) mmol/L BUN 21 (6-24) mg/dL Creatinine 1.02 (0.67-1.17) mg/dL Est GFR ( Amer) 94.3 (>60) Est GFR (Non-Af Amer) 73.3 (>60) BUN/Creatinine Ratio 20.6 H (8-20) Glucose 221 H (70-100) mg/dL Hemoglobin A1c (4.0-5.6) % Lactic Acid (0.5-2.0) mmol/L Calcium 7.8 L (8.6-10.3) mg/dL Total Bilirubin 0.70 (0.2-1.0) mg/dL AST 23 (13-39) U/L ALT 19 (7-52) U/L Alkaline Phosphatase 112 H (34-104) U/L Troponin I 0.02 (<0.04) ng/mL C-Reactive Protein 217.65 H (< 5.00) mg/L Total Protein 6.1 L (6.4-8.9) g/dL Albumin 2.4 L (3.2-5.2) g/dL Globulin 3.7 (2-4) g/dL Albumin/Globulin Ratio 0.6 L (1-3) Prealbumin 4 L (18-38) mg/dL 07/20/17 07/20/17 07/20/17 Range/Units 19:15 19:15 19:15 WBC (3.5-10.8) 10^3/ul RBC (4.0-5.4) 10^6/ul Hgb (14.0-18.0) g/dl Hct (42-52) % MCV (80-94) fL MCH (27-31) pg MCHC (31-36) g/dl RDW (10.5-15) % Plt Count (150-450) 10^3/ul MPV (7.4-10.4) um3 Neut % (Auto) (38-83) % Lymph % (Auto) (25-47) % [place] % (Auto) (1-9) % Eos % (Auto) (0-6) % Baso % (Auto) (0-2) % Absolute Neuts (auto) (1.5-7.7) 10^3/ul Absolute Lymphs (auto) (1.0-4.8) 10^3/ul Absolute Monos (auto) (0-0.8) 10^3/ul Absolute Eos (auto) (0-0.6) 10^3/ul Absolute Basos (auto) (0-0.2) 10^3/ul Absolute Nucleated RBC 10^3/ul Nucleated RBC % ESR 115 H (0-40) mm/Hr INR (Anticoag Therapy) (0.77-1.02) APTT (26.0-36.3) seconds Sodium (133-145) mmol/L Potassium (3.5-5.0) mmol/L Chloride (101-111) mmol/L Carbon Dioxide (22-32) mmol/L Anion Gap (2-11) mmol/L BUN (6-24) mg/dL Creatinine (0.67-1.17) mg/dL Est GFR ( Amer) (>60) Est GFR (Non-Af Amer) (>60) BUN/Creatinine Ratio (8-20) Glucose (70-100) mg/dL Hemoglobin A1c 8.8 H (4.0-5.6) % Lactic Acid 0.9 (0.5-2.0) mmol/L Calcium (8.6-10.3) mg/dL Total Bilirubin (0.2-1.0) mg/dL AST (13-39) U/L ALT (7-52) U/L Alkaline Phosphatase (34-104) U/L Troponin I (<0.04) ng/mL C-Reactive Protein (< 5.00) mg/L Total Protein (6.4-8.9) g/dL Albumin (3.2-5.2) g/dL Globulin (2-4) g/dL Albumin/Globulin Ratio (1-3) Prealbumin (18-38) mg/dL Assess/Plan/Problems-Billing Assessment: 67 y/o male patient presenting to [facility] with right foot wound found to have osteomyelitis of right foot, - Patient Problems (1) Diabetes Current Visit: Yes Status: Acute Priority: High Comment: a1c 8.8 continue sliding scale, records pending from PCP, has not seen pcp in over year and ran out of meds 1 year ago (2) Osteomyelitis Current Visit: Yes Status: Acute Priority: High Comment: Ortho following, id consult pending, continue iv abx for now, plan for OR in am, noted decareased NAILA to BLE, allergy to iv dye noted, pt states it caused psychosis in the past and he doesnt want a test with this dye again (3) Sepsis Current Visit: Yes Status: Acute Priority: High Comment: resovled, iv abx , source right foot, ortho following, id consult pending (4) Abnormal EKG Current Visit: Yes Status: Acute Priority: High Comment: EKG with RBBB this may be baseling, will obtain old ekg from pcp, echo in am, pt states he can walk up flight of stairs and can walk one mile with no chest pain, echo stable optimized for surgery, moderate risk from resp standpoint given hx of heavy smoking (5) HTN (hypertension) Current Visit: Yes Status: Acute Priority: High Comment: Bp stable will follow (6) Severe protein-calorie malnutrition Current Visit: Yes Status: Acute Priority: High Comment: pre-albumin 4 nutrition consult placed (7) DVT prophylaxis Current Visit: Yes Status: Acute Priority: High Comment: heparin sub-q (8) FEN Current Visit: Yes Status: Acute Priority: High Comment: consistent carb diet (9) Full code status Current Visit: Yes Status: Acute Priority: High Status and Disposition: Obtain records, continue iv abx, ID consult pending, OR tomorrow,
[2017-07-22] MEDS ORDERED: NS 0.9% 1000 ML* 1,000 ML IV SCH (17:15)
[2017-07-23] MEDS: Vancomycin(*) 1,000 MG in NS 0.9% 250 ML* 250 ML IVPB SCH ×3 (02:13→17:54)
[2017-07-23] MEDS: Cefepime 2 GM in Dextrose(*) 2 GM/50 ML BAG IV SCH ×2 (04:13→16:08)
[2017-07-23] MEDS: oxyCODONE/Acetamin 5/325 MG* TAB PO PRN (04:13)
[2017-07-23] MEDS: Omeprazole CAP* 20 MG PO SCH (05:30)
[2017-07-23] MEDS: Heparin VIAL(*) 5000 UNITS/ML VIAL (FIVE THOUSAND) SUBCUT SCH (05:40)
[2017-07-23 05:41] LABS: Hematocrit 31 % (42-52); Hemoglobin 10.4 g/dl (14.0-18.0); Mean Corpuscular HGB Conc 33 g/dl (31-36); Mean Corpuscular Hemoglobin 27 pg (27-31); Mean Corpuscular Volume 81 fL (80-94); Mean Platelet Volume 8 um3 (7.4-10.4); Platelet Count 303 10^3/ul (150-450); Red Blood Count 3.84 10^6/ul (4.0-5.4); Red Cell Distribution Width 14 % (10.5-15); White Blood Count 12.7 10^3/ul (3.5-10.8)
[2017-07-23 05:45] LABS: INR 1.15 (0.77-1.02)
[2017-07-23 05:50] LABS: ABS Basophils 0.1 10^3/ul (0-0.2); ABS Eosinophils 0.4 10^3/ul (0-0.6); ABS Lymphocytes 1.4 10^3/ul (1.0-4.8); ABS Nucleated RBC 0 10^3/ul; Eosinophil % 2.9 % (0-6); Lymphocyte % 10.9 % (25-47); Nucleated Red Blood Cells % 0
[2017-07-23 05:58] LABS: EGFR Non-African American 115.1 (>60)
[2017-07-23] MEDS: Insulin LISPRO* 1 UNITS UNIT SUBCUT SCH ×4 (06:56→20:44)
[2017-07-23] MEDS: Docusate CAP* 100 MG PO SCH ×2 (07:23→20:31)
[2017-07-23] MEDS ORDERED: Ondansetron INJ* 2 MG/ML VIAL ONE (13:20)
[2017-07-23] MEDS ORDERED: KETAMINE HCL* 50 MG/ML 10 ML VIAL ONE (13:20)
[2017-07-23] MEDS ORDERED: fentaNYL* 50 MCG/ML 2 ML VIAL (100 MCG VIAL) ONE ×2 (13:20→14:19)
[2017-07-23] MEDS ORDERED: Midazolam* 1 MG/ML 10 ML VIAL (10 MG) ONE (13:20)
[2017-07-23] MEDS ORDERED: Propofol* 10 MG/ML 20 ML BTL IV PUSH ONE (13:20)
[2017-07-23] MEDS ORDERED: Ketorolac INJ* 30 MG/ML 1 ML VIAL ONE (13:20)
[2017-07-23] MEDS ORDERED: Lidocaine 2% PF * 5 ML VIAL ONE (13:20)
[2017-07-23] MEDS ORDERED: Metoclopramide IV* 5 MG/ML 2 ML VIAL ONE (13:20)
[2017-07-23] MEDS ORDERED: Phenylephrine IV* 40 MCG/ML 10 ML SYRINGE ONE (14:04)
[2017-07-23] MEDS ORDERED: Naloxone* 0.4 MG/ML 1 ML VIAL IV PRN (14:44)
[2017-07-23] MEDS ORDERED: fentaNYL* 50 MCG/ML 2 ML VIAL (100 MCG VIAL) IV PRN (14:44)
[2017-07-23] MEDS ORDERED: Ondansetron INJ* 2 MG/ML VIAL IV PRN (14:44)
--- NOTE | 2017-07-23 19:15 | PN ---
Subjective Date of Service: 07/23/17 Interval History: seen after surgery pain controlled feels like he wants a cigarette Objective Active Medications: Acetaminophen (Tylenol Tab*) 650 mg PO Q6H PRN PRN Reason: FEVER/PAIN Albuterol (Ventolin 2.5 Mg/3 Ml Neb.Celine*) 2.5 mg INH Q2H PRN PRN Reason: SOB/WHEEZING Docusate Sodium (Colace Cap*) 200 mg PO BID [facility] Last Admin: 07/23/17 07:23 Dose: Not Given Fentanyl Citrate (Fentanyl*) 25 mcg IV SLOW PU Q2H PRN PRN Reason: PAIN Last Admin: 07/22/17 11:22 Dose: 25 mcg Cefepime HCl (Maxipime 2 Gm In Dextrose Duplex (*)) 2 gm in 50 mls @ 100 mls/ hr IV Q12H [facility] Last Admin: 07/23/17 16:08 Dose: 100 mls/hr Vancomycin HCl 1,000 mg/ (Sodium Chloride) 250 mls @ 166.667 mls/hr IVPB Q8H [facility] Last Admin: 07/23/17 17:54 Dose: 166.667 mls/hr Sodium Chloride (Ns 0.9% 1000 Ml*) 1,000 mls @ 75 mls/hr IV PER RATE [facility] Last Admin: 07/22/17 23:29 Dose: 75 mls/hr Insulin Human Lispro (Humalog*) 0 units SUBCUT ACHS [facility] PRN Reason: Protocol Last Admin: 07/23/17 19:00 Dose: 2 units Melatonin (Melatonin (Nf)) 3 mg PO BEDTIME PRN; Protocol PRN Reason: Sleep Naloxone HCl (Narcan*) 0.08 mg IV Q2M PRN PRN Reason: severe induced resp depression Stop: 07/24/17 06:44 Omeprazole (Prilosec Cap*) 20 mg PO DAILY@0600 [facility] Last Admin: 07/23/17 05:30 Dose: Not Given Ondansetron HCl (Zofran Inj*) 4 mg IV Q6H PRN PRN Reason: NAUSEA Oxycodone HCl (Roxycodone Tab*) 5 mg PO Q4H PRN PRN Reason: PAIN Last Admin: 07/22/17 10:24 Dose: 5 mg Oxycodone/Acetaminophen (Percocet 5/325 Tab*) 1 tab PO Q4H PRN PRN Reason: PAIN Last Admin: 07/23/17 04:13 Dose: 1 tab Pharmacy Consult (Vancomycin Per Pharmacy*) 1 note FOLLOW UP .VANC PER PHARMACY [facility] Vital Signs - 8 hr 07/23/17 07/23/17 07/23/17 11:40 14:42 14:45 Temperature 97.9 F 97.2 F Pulse Rate 78 73 74 Respiratory 17 12 12 Rate Blood Pressure 133/65 98/48 105/54 (mmHg) O2 Sat by Pulse 98 98 98 Oximetry 07/23/17 07/23/17 07/23/17 14:50 15:00 15:09 Temperature Pulse Rate 75 74 77 Respiratory 18 18 16 Rate Blood Pressure 104/50 107/83 142/60 (mmHg) O2 Sat by Pulse 98 98 99 Oximetry 07/23/17 07/23/17 07/23/17 15:15 15:30 15:59 Temperature 97.7 F Pulse Rate 77 79 78 Respiratory 16 18 16 Rate Blood Pressure 132/55 142/55 126/67 (mmHg) O2 Sat by Pulse 98 97 96 Oximetry 07/23/17 07/23/17 16:00 16:03 Temperature 98.1 F Pulse Rate 78 Respiratory 16 Rate Blood Pressure 126/67 (mmHg) O2 Sat by Pulse 96 96 Oximetry Oxygen Devices in Use Now: None, Nasal Cannula Appearance: sitting up in bed, interactive Eyes: No Scleral Icterus, PERRLA Ears/Nose/Mouth/Throat: Mucous Membranes Moist, - - poor dentintion Neck: NL Appearance and Movements; NL JVP, Trachea Midline Respiratory: Symmetrical Chest Expansion and Respiratory Effort, Clear to Auscultation Cardiovascular: RRR Extremities: - - right foot wrapped Neurological: Alert and Oriented x 3 Result Diagrams: 07/23/17 05:23 07/23/17 05:23 Additional Lab and Data: Lab Results 07/20/17 07/20/17 07/20/17 Range/Units 19:15 19:15 19:15 WBC 16.2 H (3.5-10.8) 10^3/ul RBC 4.10 (4.0-5.4) 10^6/ul Hgb 11.0 L (14.0-18.0) g/dl Hct 33 L (42-52) % MCV 81 (80-94) fL MCH 27 (27-31) pg MCHC 33 (31-36) g/dl RDW 14 (10.5-15) % Plt Count 288 (150-450) 10^3/ul MPV 8 (7.4-10.4) um3 Neut % (Auto) 83.5 H (38-83) % Lymph % (Auto) 7.0 L (25-47) % [place] % (Auto) 9.0 (1-9) % Eos % (Auto) 0.2 (0-6) % Baso % (Auto) 0.3 (0-2) % Absolute Neuts (auto) 13.5 H (1.5-7.7) 10^3/ul Absolute Lymphs (auto) 1.1 (1.0-4.8) 10^3/ul Absolute Monos (auto) 1.5 H (0-0.8) 10^3/ul Absolute Eos (auto) 0 (0-0.6) 10^3/ul Absolute Basos (auto) 0.1 (0-0.2) 10^3/ul Absolute Nucleated RBC 0 10^3/ul Nucleated RBC % 0 ESR (0-40) mm/Hr INR (Anticoag Therapy) 1.24 H (0.77-1.02) APTT 31.9 (26.0-36.3) seconds Sodium 129 L (133-145) mmol/L Potassium 4.1 (3.5-5.0) mmol/L Chloride 98 L (101-111) mmol/L Carbon Dioxide 22 (22-32) mmol/L Anion Gap 9 (2-11) mmol/L BUN 21 (6-24) mg/dL Creatinine 1.02 (0.67-1.17) mg/dL Est GFR ( Amer) 94.3 (>60) Est GFR (Non-Af Amer) 73.3 (>60) BUN/Creatinine Ratio 20.6 H (8-20) Glucose 221 H (70-100) mg/dL Hemoglobin A1c (4.0-5.6) % Lactic Acid (0.5-2.0) mmol/L Calcium 7.8 L (8.6-10.3) mg/dL Total Bilirubin 0.70 (0.2-1.0) mg/dL AST 23 (13-39) U/L ALT 19 (7-52) U/L Alkaline Phosphatase 112 H (34-104) U/L Troponin I 0.02 (<0.04) ng/mL C-Reactive Protein 217.65 H (< 5.00) mg/L Total Protein 6.1 L (6.4-8.9) g/dL Albumin 2.4 L (3.2-5.2) g/dL Globulin 3.7 (2-4) g/dL Albumin/Globulin Ratio 0.6 L (1-3) Prealbumin 4 L (18-38) mg/dL 07/20/17 07/20/17 07/20/17 Range/Units 19:15 19:15 19:15 WBC (3.5-10.8) 10^3/ul RBC (4.0-5.4) 10^6/ul Hgb (14.0-18.0) g/dl Hct (42-52) % MCV (80-94) fL MCH (27-31) pg MCHC (31-36) g/dl RDW (10.5-15) % Plt Count (150-450) 10^3/ul MPV (7.4-10.4) um3 Neut % (Auto) (38-83) % Lymph % (Auto) (25-47) % [place] % (Auto) (1-9) % Eos % (Auto) (0-6) % Baso % (Auto) (0-2) % Absolute Neuts (auto) (1.5-7.7) 10^3/ul Absolute Lymphs (auto) (1.0-4.8) 10^3/ul Absolute Monos (auto) (0-0.8) 10^3/ul Absolute Eos (auto) (0-0.6) 10^3/ul Absolute Basos (auto) (0-0.2) 10^3/ul Absolute Nucleated RBC 10^3/ul Nucleated RBC % ESR 115 H (0-40) mm/Hr INR (Anticoag Therapy) (0.77-1.02) APTT (26.0-36.3) seconds Sodium (133-145) mmol/L Potassium (3.5-5.0) mmol/L Chloride (101-111) mmol/L Carbon Dioxide (22-32) mmol/L Anion Gap (2-11) mmol/L BUN (6-24) mg/dL Creatinine (0.67-1.17) mg/dL Est GFR ( Amer) (>60) Est GFR (Non-Af Amer) (>60) BUN/Creatinine Ratio (8-20) Glucose (70-100) mg/dL Hemoglobin A1c 8.8 H (4.0-5.6) % Lactic Acid 0.9 (0.5-2.0) mmol/L Calcium (8.6-10.3) mg/dL Total Bilirubin (0.2-1.0) mg/dL AST (13-39) U/L ALT (7-52) U/L Alkaline Phosphatase (34-104) U/L Troponin I (<0.04) ng/mL C-Reactive Protein (< 5.00) mg/L Total Protein (6.4-8.9) g/dL Albumin (3.2-5.2) g/dL Globulin (2-4) g/dL Albumin/Globulin Ratio (1-3) Prealbumin (18-38) mg/dL Microbiology and Other Data: Microbiology 07/23/17 14:08 Skin and Soft Tissue MRSA/MSSA (PCR - Final Foot Right Mrsa Negative S.aureus Negative Gram Stain - Final Assess/Plan/Problems-Billing Assessment: 67 y/o male patient [place] [facility] [place] found to have osteomyelitis of right foot - Patient Problems (1) Osteomyelitis Comment: s/p OR today c/w cefepime and vanco wait for cultures from OR (2) Diabetes Comment: a1c 8.8 lispro SS (3) HTN (hypertension) Comment: Bp stable Status and Disposition: continue iv abx
[2017-07-23] MEDS: Nicotine PATCH 14 MG/24 HR* PATCH TRANSDERM SCH (20:31)
[2017-07-24] MEDS: Vancomycin(*) 1,000 MG in NS 0.9% 250 ML* 250 ML IVPB SCH ×2 (01:28→10:00)
[2017-07-24] MEDS: oxyCODONE/Acetamin 5/325 MG* TAB PO PRN ×3 (01:49→22:58)
[2017-07-24] MEDS: Cefepime 2 GM in Dextrose(*) 2 GM/50 ML BAG IV SCH (04:07)
[2017-07-24] MEDS: Omeprazole CAP* 20 MG PO SCH (05:28)
[2017-07-24] MEDS: Insulin LISPRO* 1 UNITS UNIT SUBCUT SCH ×4 (09:19→22:57)
[2017-07-24] MEDS: Docusate CAP* 100 MG PO SCH ×2 (09:19→22:59)
--- NOTE | 2017-07-24 09:22 | PN ---
Progress Note - Progress Note Date of Service: 07/24/17 SOAP: Subjective: []Patient seen at bedside. He feels well, stating that his RLE pain is tolerable and comes in waves. Denies CP or SOB. Objective: [] Vital Signs Temp 98.2 F 07/24/17 03:42 Pulse 88 07/24/17 04:48 Resp 18 07/24/17 07:46 BP 122/63 07/24/17 03:42 Pulse Ox 95 07/24/17 03:42 Intake & Output 07/23/17 07/24/17 07/24/17 18:59 06:59 18:59 Intake Total 1910 1240 Output Total 600 750 Balance 1310 490 Intake: IV Fluids 1200 LR 1200 IVPB 650 260 ABX - VANCOMYCIN 125 260 NS (0.9%) 525 Oral 60 980 Output: Urine 600 750 Other: Estimated Void Small # Bowel Movements 0 # Voids 1 Laboratory Last Values WBC 12.7 10^3/ul (3.5-10.8) H 07/23/17 05:23 RBC 3.84 10^6/ul (4.0-5.4) L 07/23/17 05:23 Hgb 10.4 g/dl (14.0-18.0) L 07/23/17 05:23 Hct 31 % (42-52) L 07/23/17 05:23 MCV 81 fL (80-94) 07/23/17 05:23 MCH 27 pg (27-31) 07/23/17 05:23 MCHC 33 g/dl (31-36) 07/23/17 05:23 RDW 14 % (10.5-15) 07/23/17 05:23 Plt Count 303 10^3/ul (150-450) 07/23/17 05:23 MPV 8 um3 (7.4-10.4) 07/23/17 05:23 Neut % (Auto) 77.6 % (38-83) 07/23/17 05:23 Lymph % (Auto) 10.9 % (25-47) L 07/23/17 05:23 [place] % (Auto) 7.8 % (1-9) 07/23/17 05:23 Eos % (Auto) 2.9 % (0-6) 07/23/17 05:23 Baso % (Auto) 0.8 % (0-2) 07/23/17 05:23 Absolute Neuts (auto) 10.0 10^3/ul (1.5-7.7) H 07/23/17 05:23 Absolute Lymphs (auto) 1.4 10^3/ul (1.0-4.8) 07/23/17 05:23 Absolute Monos (auto) 1.0 10^3/ul (0-0.8) H 07/23/17 05:23 Absolute Eos (auto) 0.4 10^3/ul (0-0.6) 07/23/17 05:23 Absolute Basos (auto) 0.1 10^3/ul (0-0.2) 07/23/17 05:23 Absolute Nucleated RBC 0 10^3/ul 07/23/17 05:23 Nucleated RBC % 0 07/23/17 05:23 ESR 115 mm/Hr (0-40) H 07/20/17 19:15 INR (Anticoag Therapy) 1.15 (0.77-1.02) H 07/23/17 05:23 APTT 32.6 seconds (26.0-36.3) 07/21/17 05:06 Sodium 131 mmol/L (133-145) L 07/23/17 05:23 Potassium 3.7 mmol/L (3.5-5.0) 07/23/17 05:23 Chloride 102 mmol/L (101-111) 07/23/17 05:23 Carbon Dioxide 24 mmol/L (22-32) 07/23/17 05:23 Anion Gap 5 mmol/L (2-11) 07/23/17 05:23 BUN 7 mg/dL (6-24) 07/23/17 05:23 Creatinine 0.69 mg/dL (0.67-1.17) 07/23/17 05:23 Est GFR ( Amer) 148.0 (>60) 07/23/17 05:23 Est GFR (Non-Af Amer) 115.1 (>60) 07/23/17 05:23 BUN/Creatinine Ratio 10.1 (8-20) 07/23/17 05:23 Glucose 145 mg/dL (70-100) H 07/23/17 05:23 POC Glucose (mg/dL) 172 mg/dL (70-100) H 07/24/17 07:55 Hemoglobin A1c 8.8 % (4.0-5.6) H 07/20/17 19:15 Lactic Acid 0.8 mmol/L (0.5-2.0) 07/21/17 05:06 Calcium 8.2 mg/dL (8.6-10.3) L 07/23/17 05:23 Total Bilirubin 0.70 mg/dL (0.2-1.0) 07/20/17 19:15 AST 23 U/L (13-39) 07/20/17 19:15 ALT 19 U/L (7-52) 07/20/17 19:15 Alkaline Phosphatase 112 U/L (34-104) H 07/20/17 19:15 Troponin I 0.02 ng/mL (<0.04) 07/20/17 19:15 C-Reactive Protein 217.65 mg/L (< 5.00) H 07/20/17 19:15 Total Protein 6.1 g/dL (6.4-8.9) L 07/20/17 19:15 Albumin 2.4 g/dL (3.2-5.2) L 07/20/17 19:15 Globulin 3.7 g/dL (2-4) 07/20/17 19:15 Albumin/Globulin Ratio 0.6 (1-3) L 07/20/17 19:15 Prealbumin 4 mg/dL (18-38) L 07/20/17 19:15 Urine Color [place] 07/21/17 05:09 Urine Appearance Cloudy 07/21/17 05:09 Urine pH 5.0 (5-9) 07/21/17 05:09 Ur Specific [place] 1.021 (1.010-1.030) 07/21/17 05:09 Urine Protein 2+(100 mg/dl) (Negative) H 07/21/17 05:09 Urine Ketones Trace (Negative) H 07/21/17 05:09 Urine Blood 1+ (Negative) H 07/21/17 05:09 Urine Nitrate Negative (Negative) 07/21/17 05:09 Urine Bilirubin Negative (Negative) 07/21/17 05:09 Urine Urobilinogen Negative (Negative) 07/21/17 05:09 Ur Leukocyte Esterase Negative (Negative) 07/21/17 05:09 Urine WBC (Auto) 2+(11-20/hpf) (Absent) H 07/21/17 05:09 Urine RBC (Auto) 2+(6-10/hpf) (Absent) H 07/21/17 05:09 Urine Bacteria Absent (Absent) 07/21/17 05:09 Hyaline Casts Present (Absent) H 07/21/17 05:09 Urine Glucose 1+(50 mg/dl) (Negative) H 07/21/17 05:09 Vancomycin Trough 21.0 mcg/mL 07/24/17 08:48 General: OOB in chair. NAD. Calm and cooperative RLE: Dressing CDI. Calf proximal to dressing to tender without erythema, edema or palpable cords. Knee flexion intact. Assessment: []POD 1 s/p right midfoot amputation, Dr Barth Plan: []NWB RLE Dressing to be kept in place Dopplar RLE veins to r/o dvt due to tenderness.
[2017-07-24] MEDS: Nicotine PATCH 14 MG/24 HR* PATCH TRANSDERM SCH (09:59)
[2017-07-24] MEDS: Nicotine Patch Removal NOTE PATCH OFF SCH (10:11)
--- NOTE | 2017-07-24 10:16 | RAD ---
Indication: Right foot pain and leg pain. Duplex Doppler sonography of the deep venous system of the right lower extremity deep venous system was performed. Bilaterally the common femoral veins appear patent and compressible. Right proximal greater saphenous vein, proximal deep femoral vein, femoral vein, popliteal vein, posterior tibial veins and peroneal veins appear patent and compressible. IMPRESSION: NO EVIDENCE OF DEEP VENOUS THROMBOSIS IS IDENTIFIED.
--- NOTE | 2017-07-24 17:01 | OP ---
DATE OF OPERATION: 07/23/17 - ROOM #333 DATE OF : 54 SURGEON: Isidoro Barth MD ANSWERER: Lindsey Snider PA-C PRE-OP DIAGNOSIS: Septic necrotic right forefoot. POST-OP DIAGNOSIS: Septic necrotic right forefoot. OPERATIVE PROCEDURE: Talonavicular disarticulation, right foot, with Achilles release. DESCRIPTION OF PROCEDURE: The patient was taken to the operating room where obvious necrosis of the toes was encountered as well as gross purulence in the forefoot of his right side. We made a transverse incision basically over the navicular and then through the mid portion of the arch just distal to the insertion of the plantar fascia. We were able to disarticulate the talonavicular joint and send the foot to Pathology. It was a track of pus along the anterior tibialis tendon, which we dissected approximately with a Yanelis clamp, made a percutaneous incision 10 cm above the ankle and irrigated this from top down. Local hemostasis was obtained. We were able to close dorsal to plantar with 0 Vicryl sutures and loose closure of some interrupted 2- 0 Prolene sutures. A compression dressing was applied. We did place a Betadine wick into the anterior tibialis sheath as well as a small pocket of pus in the plantar aspect. [id number]/[id number] #: [id number] [facility]ITAL[facility]
[2017-07-24] MEDS: Aspirin EC Low Dose* 81 MG TAB.EC PO SCH (17:27)
--- NOTE | 2017-07-24 17:27 | PN ---
Subjective Date of Service: 07/24/17 Interval History: No complaints today Feels like nicotine patch is helping Objective Active Medications: Acetaminophen (Tylenol Tab*) 650 mg PO Q6H PRN PRN Reason: FEVER/PAIN Albuterol (Ventolin 2.5 Mg/3 Ml Neb.Celine*) 2.5 mg INH Q2H PRN PRN Reason: SOB/WHEEZING Aspirin (Aspirin Ec Low Dose*) 81 mg PO DAILY [facility] Docusate Sodium (Colace Cap*) 200 mg PO BID [facility] Last Admin: 07/24/17 09:19 Dose: 200 mg Fentanyl Citrate (Fentanyl*) 25 mcg IV SLOW PU Q2H PRN PRN Reason: PAIN Last Admin: 07/22/17 11:22 Dose: 25 mcg Sodium Chloride (Ns 0.9% 1000 Ml*) 1,000 mls @ 75 mls/hr IV PER RATE [facility] Last Admin: 07/22/17 23:29 Dose: 75 mls/hr Ceftriaxone Sodium 2 gm/ (Sodium Chloride) 100 mls @ 200 mls/hr IVPB Q24H [facility] Last Admin: 07/24/17 17:05 Dose: 200 mls/hr Insulin Human Lispro (Humalog*) 0 units SUBCUT ACHS [facility] PRN Reason: Protocol Last Admin: 07/24/17 12:55 Dose: 2 units Melatonin (Melatonin (Nf)) 3 mg PO BEDTIME PRN; Protocol PRN Reason: Sleep Metronidazole (Flagyl Tab*) 500 mg PO BID [facility] Nicotine (Nicotine Patch 14 Mg/24 Hr*) 1 patch TRANSDERM DAILY [facility] Last Admin: 07/24/17 09:59 Dose: 1 patch Omeprazole (Prilosec Cap*) 20 mg PO DAILY@0600 [facility] Last Admin: 07/24/17 05:28 Dose: 20 mg Ondansetron HCl (Zofran Inj*) 4 mg IV Q6H PRN PRN Reason: NAUSEA Oxycodone HCl (Roxycodone Tab*) 5 mg PO Q4H PRN PRN Reason: PAIN Last Admin: 07/22/17 10:24 Dose: 5 mg Oxycodone/Acetaminophen (Percocet 5/325 Tab*) 1 tab PO Q4H PRN PRN Reason: PAIN Last Admin: 07/24/17 07:46 Dose: 1 tab Pharmacy Profile Note (Nicotine Patch Removal Note*) 1 note PATCH OFF 0800 [facility] Last Admin: 07/24/17 10:11 Dose: 1 note Vital Signs - 8 hr 07/24/17 07/24/17 07/24/17 10:36 11:07 15:25 Temperature 97.6 F 99.4 F Pulse Rate 89 96 Respiratory 18 18 18 Rate Blood Pressure 116/57 157/55 (mmHg) O2 Sat by Pulse 97 95 Oximetry Oxygen Devices in Use Now: None Appearance: interactive, NAD Eyes: No Scleral Icterus, PERRLA Ears/Nose/Mouth/Throat: Clear Oropharnyx, Mucous Membranes Moist Neck: NL Appearance and Movements; NL JVP, Trachea Midline Respiratory: Symmetrical Chest Expansion and Respiratory Effort, Clear to Auscultation Cardiovascular: RRR Abdominal: NL Sounds; No Tenderness; No Distention, No Hepatosplenomegaly Lymphatic: No Cervical Adenopathy Extremities: - - right foot wrapped Skin: No Rash or Ulcers Neurological: Alert and Oriented x 3 Result Diagrams: 07/23/17 05:23 07/23/17 05:23 Additional Lab and Data: Lab Results 07/20/17 07/20/17 07/20/17 Range/Units 19:15 19:15 19:15 WBC 16.2 H (3.5-10.8) 10^3/ul RBC 4.10 (4.0-5.4) 10^6/ul Hgb 11.0 L (14.0-18.0) g/dl Hct 33 L (42-52) % MCV 81 (80-94) fL MCH 27 (27-31) pg MCHC 33 (31-36) g/dl RDW 14 (10.5-15) % Plt Count 288 (150-450) 10^3/ul MPV 8 (7.4-10.4) um3 Neut % (Auto) 83.5 H (38-83) % Lymph % (Auto) 7.0 L (25-47) % [place] % (Auto) 9.0 (1-9) % Eos % (Auto) 0.2 (0-6) % Baso % (Auto) 0.3 (0-2) % Absolute Neuts (auto) 13.5 H (1.5-7.7) 10^3/ul Absolute Lymphs (auto) 1.1 (1.0-4.8) 10^3/ul Absolute Monos (auto) 1.5 H (0-0.8) 10^3/ul Absolute Eos (auto) 0 (0-0.6) 10^3/ul Absolute Basos (auto) 0.1 (0-0.2) 10^3/ul Absolute Nucleated RBC 0 10^3/ul Nucleated RBC % 0 ESR (0-40) mm/Hr INR (Anticoag Therapy) 1.24 H (0.77-1.02) APTT 31.9 (26.0-36.3) seconds Sodium 129 L (133-145) mmol/L Potassium 4.1 (3.5-5.0) mmol/L Chloride 98 L (101-111) mmol/L Carbon Dioxide 22 (22-32) mmol/L Anion Gap 9 (2-11) mmol/L BUN 21 (6-24) mg/dL Creatinine 1.02 (0.67-1.17) mg/dL Est GFR ( Amer) 94.3 (>60) Est GFR (Non-Af Amer) 73.3 (>60) BUN/Creatinine Ratio 20.6 H (8-20) Glucose 221 H (70-100) mg/dL Hemoglobin A1c (4.0-5.6) % Lactic Acid (0.5-2.0) mmol/L Calcium 7.8 L (8.6-10.3) mg/dL Total Bilirubin 0.70 (0.2-1.0) mg/dL AST 23 (13-39) U/L ALT 19 (7-52) U/L Alkaline Phosphatase 112 H (34-104) U/L Troponin I 0.02 (<0.04) ng/mL C-Reactive Protein 217.65 H (< 5.00) mg/L Total Protein 6.1 L (6.4-8.9) g/dL Albumin 2.4 L (3.2-5.2) g/dL Globulin 3.7 (2-4) g/dL Albumin/Globulin Ratio 0.6 L (1-3) Prealbumin 4 L (18-38) mg/dL 07/20/17 07/20/17 07/20/17 Range/Units 19:15 19:15 19:15 WBC (3.5-10.8) 10^3/ul RBC (4.0-5.4) 10^6/ul Hgb (14.0-18.0) g/dl Hct (42-52) % MCV (80-94) fL MCH (27-31) pg MCHC (31-36) g/dl RDW (10.5-15) % Plt Count (150-450) 10^3/ul MPV (7.4-10.4) um3 Neut % (Auto) (38-83) % Lymph % (Auto) (25-47) % [place] % (Auto) (1-9) % Eos % (Auto) (0-6) % Baso % (Auto) (0-2) % Absolute Neuts (auto) (1.5-7.7) 10^3/ul Absolute Lymphs (auto) (1.0-4.8) 10^3/ul Absolute Monos (auto) (0-0.8) 10^3/ul Absolute Eos (auto) (0-0.6) 10^3/ul Absolute Basos (auto) (0-0.2) 10^3/ul Absolute Nucleated RBC 10^3/ul Nucleated RBC % ESR 115 H (0-40) mm/Hr INR (Anticoag Therapy) (0.77-1.02) APTT (26.0-36.3) seconds Sodium (133-145) mmol/L Potassium (3.5-5.0) mmol/L Chloride (101-111) mmol/L Carbon Dioxide (22-32) mmol/L Anion Gap (2-11) mmol/L BUN (6-24) mg/dL Creatinine (0.67-1.17) mg/dL Est GFR ( Amer) (>60) Est GFR (Non-Af Amer) (>60) BUN/Creatinine Ratio (8-20) Glucose (70-100) mg/dL Hemoglobin A1c 8.8 H (4.0-5.6) % Lactic Acid 0.9 (0.5-2.0) mmol/L Calcium (8.6-10.3) mg/dL Total Bilirubin (0.2-1.0) mg/dL AST (13-39) U/L ALT (7-52) U/L Alkaline Phosphatase (34-104) U/L Troponin I (<0.04) ng/mL C-Reactive Protein (< 5.00) mg/L Total Protein (6.4-8.9) g/dL Albumin (3.2-5.2) g/dL Globulin (2-4) g/dL Albumin/Globulin Ratio (1-3) Prealbumin (18-38) mg/dL Microbiology and Other Data: Microbiology 07/23/17 14:08 Skin and Soft Tissue MRSA/MSSA (PCR - Final Foot Right Mrsa Negative S.aureus Negative Gram Stain - Final Assess/Plan/Problems-Billing Assessment: 67 y/o male [place] [facility] [place] found to have 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
--- NOTE | 2017-07-24 18:22 | CONSULT ---
Consult Consult: Date of Service: 07/24/17 Reason for Consultation: Critical Limb Ischemia, Right foot ulcers (Focused) HPI: Mr Edgar is a 67 YOM with DM2 & HTN who had not seen a doctors "in years". He was admitted 07/21/17 with a right foot ulcer and signs of sepsis. Yesterday he underwent right foot amputation with Dr. Barth. Prior to this he reports right foot wound caused by a untrimmed toenails that "curled around and cut my foot". Prior to this episode he denies any claudication pain or rest pain. He does walk with cane x 2 years. He denies pain at the right foot or elsewhere. He denies N/V, diarrhea, chest pain, SOB, palpitations, or other issues. PMedHx DM2, poorly controlled HTN Allergies contrast dye Allergy (Uncoded 07/20/17 19:10) PSurgHx R foot amputation 07/23/17 R below the elbow amputation electively after nerve injury 1969' L 1st toe amputation SocHx: 12 PPD hand-rolled cigarettes, denies alcohol & recreational drugs currently but admits to remote HX of 'speed'; , lives alone, 4 daughters (one from poisoning), 1 son (estranged); disabled; full code status FamHx: reviewed, non-contributory to his presentation ROS: as above, otherwise reviewed and all were negative PE: Selected Entries 07/24/17 07/24/17 15:25 16:00 Temperature 99.4 F Temperature Oral Source Pulse Rate 96 Respiratory 18 Rate Blood Pressure 157/55 (mmHg) Blood Pressure 78 Mean O2 Sat by Pulse 95 Oximetry Patient on Room Yes Air NAD, AAO x 3 RRR, S1/S2 Abdomen is soft and nontender 2+ pulses palpated at the left radial and B/L brachial arteries 2+ B/L DIRECTOR OF NURSING nonpalpable B/L popliteal and left ankle arteries 5/5 strength grossly in BUE and LLE Sensation intact to light touch at left foot Right amputation stump dressed and not taken down Long toenails noted at the left foot Relevant Labs: Laboratory Tests 07/20/17 07/21/17 07/21/17 19:15 05:06 05:06 WBC 16.2 H 14.9 H RBC Hgb Hct INR (Anticoag Therapy) APTT 32.6 BUN Creatinine Est GFR ( Amer) Est GFR (Non-Af Amer) BUN/Creatinine Ratio POC Glucose (mg/dL) 07/22/17 07/23/17 07/23/17 04:56 05:23 05:23 WBC 11.4 H 12.7 H RBC 3.84 L Hgb 10.4 L Hct 31 L INR (Anticoag Therapy) 1.15 H APTT BUN Creatinine Est GFR ( Amer) Est GFR (Non-Af Amer) BUN/Creatinine Ratio POC Glucose (mg/dL) 07/23/17 07/24/17 05:23 16:56 WBC RBC Hgb Hct INR (Anticoag Therapy) APTT BUN 7 Creatinine 0.69 Est GFR ( Amer) 148.0 Est GFR (Non-Af Amer) 115.1 BUN/Creatinine Ratio 10.1 POC Glucose (mg/dL) 165 H Vascular Imaging: Patient Name: GAURANG EDGAR JR Medical Record#: [id number] Ordering Physician: Bri Jacob MD Acct.#: [id number] : 1950 Age: 67 Sex: M Location: SURGICAL STAY UNIT Exam Date: 07/22/171950 ADM Status: ADM IN Order Information: VL ANK/BRACHIAL INDICES Accession Number: [id number] CPT: 92001 INDICATION: Diabetic neuropathy. COMPARISON: There are no prior studies available for comparison. TECHNIQUE: Bilateral ankle brachial indices were measured and Doppler tracings were obtained at the ankle of the dorsalis pedis and posterior tibial arteries. FINDINGS: The ankle brachial index on the right was 0.61 and on the left was 0.74. The waveforms appeared decreased with a mixture of triphasic and biphasic flow within the posterior tibial and dorsalis pedis arteries. IMPRESSION: DECREASED ANKLE-BRACHIAL INDICES IN THE CLAUDICATION RANGE. <Electronically signed by Mc Santillan MD in OV> 07/22/17925 Dictated By: Mc Santillan MD Dictated Date/Time: 07/22/17925 Transcribed Date/Time: 07/22/17920 Copy to: Impression: 67 YOM with multiple risk factors including poorly treated diabetes , hypertension and cigarette smoking with lower extremity arterial insufficiency POD #1 right foot amputation for wound. Plan/Recommendations: 1. Left foot hygeine including trimming of toenails- possible podiatry consultation. 2. If the patient shows signs of non-healing at the right foot amputation site then arteriography would be indicated. Wound healing will be enhanced if arterial inflow can be established. 1 of 1
--- NOTE | 2017-07-24 21:24 | CONS ---
CONSULTATION REPORT: DATE OF CONSULT: 07/24/17 REQUESTING PHYSICIAN: Dr. Barth. CONSULTING SERVICE: Infectious Disease. REASON FOR CONSULT: Right foot osteomyelitis, abscess, gangrene. IMPRESSION: 1. Right foot infection to include chronic osteomyelitis, abscess, gangrene status post mid foot amputation. Cultures growing group B strep. Gram stain showed gram- positive cocci. 2. Diabetes with neuropathy. 3. Peripheral vascular disease. NAILA here shows claudication range, decrease in NAILA. RECOMMENDATIONS: 1. Stop vancomycin. Continue ceftriaxone 2 g a day. We will add Flagyl 500 mg by mouth twice daily for anaerobic coverage. Given his vascular disease despite likely excellent surgical margins, we will plan on 2 weeks of IV antibiotics. HISTORY OF PRESENT ILLNESS: This is a 67-year-old diabetic admitted with right foot infection. He is transferred here from [facility]. He had had a couple of months of worsening right foot redness, pain, and swelling; took much longer to walk around because of pain in the foot. He does not have a car. So , he had walked to [facility], it took him a couple of hours instead of the usual half an hour. He was having fevers, chills, and sweats. He got to [facility] on July 21. He had an MRI that showed right forefoot osteomyelitis. He was started on broad-spectrum antibiotics. He had his amputation on 07/23/17. Culture results as above. His blood cultures on admission were negative. He is having occasionally chills and sweats. He is eating okay. Decreased right foot pain. PAST MEDICAL HISTORY: 1. Right arm amputation distant past. 2. 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 3. Diabetes with neuropathy. 4. Peripheral vascular disease. 5. Hypertension. MEDICATIONS: 1. Tylenol. 2. Ceftriaxone 2 g a day. 3. Omeprazole. 4. Vancomycin. 5. Nicotine patch. ALLERGIES: CONTRAST DYE. FAMILY HISTORY: No recurrent infections. SOCIAL HISTORY: Lives at [place] by himself. No travel. REVIEW OF SYSTEMS: All negative for 14-point review of systems except as noted above. PHYSICAL EXAM: Vital Signs: Temperature is 36.4, heart rate 89, respiratory rate 18, blood pressure 116/57, O2 sat 97% on room air. General: He is awake, not in distress. Neurologic: He is oriented x3. Follows all commands. HEENT : There is no conjunctival hemorrhage. Oropharynx without lesions. Neck is supple. Heart: Regular rate and rhythm without murmurs, rubs or gallops. Lungs : Clear to auscultation bilaterally. Abdomen: Soft, nontender, nondistended. There are bowel sounds present. Skin: There is no rash or splinter hemorrhages. Musculoskeletal: Right foot amputation is wrapped. The left foot , there is no ulcer or erythema. I do not detect a palpable pulse, dorsalis pedis on the left. DIAGNOSTIC STUDIES/LAB DATA: White blood cell count 12, hemoglobin 10, and platelets 303,000. Creatinine is 0.7. Please see impressions and recommendations outlined above. Thank you for asking me to see Mr. Subramanian in consultation. [id number]/[facility] #: [id number] MTDD
--- NOTE | 2017-07-24 21:41 | CONS ---
CC: Dr. Cavanaugh * INTERVENTIONAL CARDIOLOGY CONSULTATION NOTE: DATE OF CONSULT: 07/24/17 PRIMARY CARE PHYSICIAN: Dr. Cavanaugh in [place]. HISTORY OF PRESENT ILLNESS: A 67-year-old diabetic admitted with right foot gangrene. I went to see him yesterday, he was still sedated in postop recovery. I have been asked to evaluate his critical limb ischemia. He presented to the [place] ER 07/20/17 with right forefoot gangrene of apparently 4 digits with gas on MR. Yesterday, he underwent proximal resection by Dr. Ashley. In reviewing his medical records, he apparently is quite destitute, has very low social support. He has not been taking any medications for anything. PAST MEDICAL HISTORY: Diabetes, noncompliance. MEDICATIONS: Prehospital medications, none. ALLERGIES: CONTRAST. SOCIAL HISTORY: He is a smoker. REVIEW OF SYSTEMS: See H and P. PHYSICAL EXAM: Current physical exam, he is pain free, he has a bandage on his right leg. Temp 97.6, BP 116/57, pulse 89. His lungs are clear. JVP is normal , has a carotid. HEENT is normal. Cardiac Exam: Notable for regular rhythm. No gallop, murmur, or rub. Abdominal aorta is not palpable, he has no abdominal bruit. I can feel his femoral pulses. I cannot feel popliteals. I do not feel any right pedal pulses, his left pedal pulses, his right foot has been amputated. He has no edema. He has atrophic skin changes. DIAGNOSTIC STUDIES/LAB DATA: Echo showed normal LV function. NAILA: Right 0.61 , left 0.74. Hemoglobin 11, hematocrit 33, white count on admission 16.2. INR 1.24 on no anticoagulation. His sodium 129, BUN 21, creatinine 1.02. Blood sugar high at 221. Alk phos elevated at 112. Albumin low at 2.4. Urinalysis is positive for protein. Hemoglobin A1c is high at 8.8. I do not see a lipid profile. IMPRESSION: Peripheral arterial disease. He has claudication range ABIs with [place] V, major tissue loss right foot, now status post amputation. I discussed with him secondary risk factor modification measures including daily baby aspirin, I will check a lipid profile. I am concerned about his abnormal INR at admission without being on anticoagulation. He is hypoalbuminemic and has proteinuria, I do not see a quantitation of his urinary protein loss. His care is compromised by essentially absent social support. He anticipates following with Dr. Cavanaugh after discharge. Thanks for the consult. [id number]/[facility] #: [id number] NICOLE
[2017-07-24] MEDS: metroNIDAZOLE TAB* 250 MG PO SCH (22:58)
[2017-07-25] MEDS: Omeprazole CAP* 20 MG PO SCH (05:58)
[2017-07-25] MEDS: Nicotine PATCH 14 MG/24 HR* PATCH TRANSDERM SCH (07:42)
[2017-07-25] MEDS: Nicotine Patch Removal NOTE PATCH OFF SCH (07:51)
[2017-07-25] MEDS: metroNIDAZOLE TAB* 250 MG PO SCH ×2 (09:52→21:40)
[2017-07-25] MEDS: Insulin LISPRO* 1 UNITS UNIT SUBCUT SCH ×4 (09:53→21:40)
[2017-07-25] MEDS: Aspirin EC Low Dose* 81 MG TAB.EC PO SCH (09:53)
[2017-07-25] MEDS: Docusate CAP* 100 MG PO SCH ×2 (09:53→21:40)
[2017-07-25] MEDS: fentaNYL* 50 MCG/ML 2 ML VIAL (100 MCG VIAL) IV SLOW PU PRN (10:00)
--- NOTE | 2017-07-25 10:01 | PN ---
Progress Note - Progress Note Date of Service: 07/25/17 SOAP: Subjective: CC: foot infection HPI: 67 year old man with diabetes, PVD, right foot infection which had progressed over a couple of months with swelling, redness and pain that came up into his ankle. Transferred from . Surgery here with Dr Barth. Appetite good. No fever, rash, or diarrhea. Objective: Vital Signs Temp 36.4 C 07/25/17 03:32 Pulse 72 07/25/17 03:32 Resp 16 07/25/17 03:32 BP 159/76 07/25/17 03:32 Pulse Ox 97 07/25/17 03:32 Intake & Output 07/24/17 07/25/17 07/25/17 18:59 06:59 18:59 Intake Total 0 1180 Output Total 350 1100 Balance -350 80 Intake: Oral 0 1180 Output: Urine 350 1100 Other: # Bowel Movements 0 Gen:awake, no distress HEENT:PERRL, MMM HEart:RRR no murmur Lungs:CTA BL Abd:+BS NTND soft Skin: no rash MSK: R foot casted Laboratory Results - last 24 hr 07/24/17 07/24/17 07/24/17 08:48 12:24 16:56 POC Glucose (mg/dL) 194 H 165 H Triglycerides 192 Cholesterol 112 LDL Cholesterol 60 HDL Cholesterol 13.9 Vancomycin Trough 21.0 Microbiology 07/23/17 14:08 Skin and Soft Tissue MRSA/MSSA (PCR - Final Foot Right Mrsa Negative S.aureus Negative Gram Stain - Final Wound Culture - Preliminary Strep Agalactiae - (Group B) 07/23/17 14:08 Anaerobic Culture - Preliminary Tissue - Right 07/20/17 19:15 Aerobic Blood Culture - Preliminary Blood Venous No Growth Day 4 Anaerobic Blood Culture - Preliminary No Growth Day 4 07/20/17 19:15 Aerobic Blood Culture - Preliminary Blood Venous No Growth Day 4 Anaerobic Blood Culture - Preliminary No Growth Day 4 Assessment: 1. Right foot chronic osteomyelitis, abscess, gangrene, suppurative tenosynovitis 2. diabetes with neuropathy 3. PAD Plan: 1. continue ceftriaxone 2 gm daily day and flagyl 500 mg po bid day 08/29 2. weekly cbc, cmp, crp 35 minutes floor time >50% face to face in counseling regarding antibiotic plans
--- NOTE | 2017-07-25 15:39 | PN ---
Subjective Date of Service: 07/25/17 Interval History: Has no complaints. Excited to be transferred to [place] as it is closer to home Pain well controlled. Objective Active Medications: Acetaminophen (Tylenol Tab*) 650 mg PO Q6H PRN PRN Reason: FEVER/PAIN Albuterol (Ventolin 2.5 Mg/3 Ml Neb.Celine*) 2.5 mg INH Q2H PRN PRN Reason: SOB/WHEEZING Aspirin (Aspirin Ec Low Dose*) 81 mg PO DAILY [facility] Last Admin: 07/25/17 09:53 Dose: 81 mg Docusate Sodium (Colace Cap*) 200 mg PO BID [facility] Last Admin: 07/25/17 09:53 Dose: 200 mg Fentanyl Citrate (Fentanyl*) 25 mcg IV SLOW PU Q2H PRN PRN Reason: PAIN Last Admin: 07/22/17 11:22 Dose: 25 mcg Ceftriaxone Sodium 2 gm/ (Sodium Chloride) 100 mls @ 200 mls/hr IVPB Q24H [facility] Last Admin: 07/24/17 17:05 Dose: 200 mls/hr Insulin Human Lispro (Humalog*) 0 units SUBCUT ACHS [facility] PRN Reason: Protocol Last Admin: 07/25/17 13:27 Dose: 2 units Melatonin (Melatonin (Nf)) 3 mg PO BEDTIME PRN; Protocol PRN Reason: Sleep Metronidazole (Flagyl Tab*) 500 mg PO BID [facility] Last Admin: 07/25/17 09:52 Dose: 500 mg Nicotine (Nicotine Patch 14 Mg/24 Hr*) 1 patch TRANSDERM DAILY [facility] Last Admin: 07/25/17 07:42 Dose: 1 patch Omeprazole (Prilosec Cap*) 20 mg PO DAILY@0600 [facility] Last Admin: 07/25/17 05:58 Dose: 20 mg Ondansetron HCl (Zofran Inj*) 4 mg IV Q6H PRN PRN Reason: NAUSEA Oxycodone HCl (Roxycodone Tab*) 5 mg PO Q4H PRN PRN Reason: PAIN Last Admin: 07/22/17 10:24 Dose: 5 mg Oxycodone/Acetaminophen (Percocet 5/325 Tab*) 1 tab PO Q4H PRN PRN Reason: PAIN Last Admin: 07/24/17 22:58 Dose: 1 tab Pharmacy Profile Note (Nicotine Patch Removal Note*) 1 note PATCH OFF 0800 [facility] Last Admin: 07/25/17 07:51 Dose: 1 note Vital Signs - 8 hr 07/25/17 07/25/17 08:00 08:15 Temperature 98.4 F Pulse Rate 78 Respiratory 18 16 Rate Blood Pressure 129/51 (mmHg) O2 Sat by Pulse 96 Oximetry Oxygen Devices in Use Now: None Appearance: NAD Eyes: No Scleral Icterus Ears/Nose/Mouth/Throat: Clear Oropharnyx, Mucous Membranes Moist Neck: NL Appearance and Movements; NL JVP, Trachea Midline Respiratory: Symmetrical Chest Expansion and Respiratory Effort, Clear to Auscultation Cardiovascular: RRR Abdominal: NL Sounds; No Tenderness; No Distention, No Hepatosplenomegaly Lymphatic: No Axillary Adenopathy Extremities: No Edema, - - right foot wrapped Neurological: Alert and Oriented x 3 Result Diagrams: 07/23/17 05:23 07/23/17 05:23 Additional Lab and Data: Lab Results 07/20/17 07/20/17 07/20/17 Range/Units 19:15 19:15 19:15 WBC 16.2 H (3.5-10.8) 10^3/ul RBC 4.10 (4.0-5.4) 10^6/ul Hgb 11.0 L (14.0-18.0) g/dl Hct 33 L (42-52) % MCV 81 (80-94) fL MCH 27 (27-31) pg MCHC 33 (31-36) g/dl RDW 14 (10.5-15) % Plt Count 288 (150-450) 10^3/ul MPV 8 (7.4-10.4) um3 Neut % (Auto) 83.5 H (38-83) % Lymph % (Auto) 7.0 L (25-47) % [place] % (Auto) 9.0 (1-9) % Eos % (Auto) 0.2 (0-6) % Baso % (Auto) 0.3 (0-2) % Absolute Neuts (auto) 13.5 H (1.5-7.7) 10^3/ul Absolute Lymphs (auto) 1.1 (1.0-4.8) 10^3/ul Absolute Monos (auto) 1.5 H (0-0.8) 10^3/ul Absolute Eos (auto) 0 (0-0.6) 10^3/ul Absolute Basos (auto) 0.1 (0-0.2) 10^3/ul Absolute Nucleated RBC 0 10^3/ul Nucleated RBC % 0 ESR (0-40) mm/Hr INR (Anticoag Therapy) 1.24 H (0.77-1.02) APTT 31.9 (26.0-36.3) seconds Sodium 129 L (133-145) mmol/L Potassium 4.1 (3.5-5.0) mmol/L Chloride 98 L (101-111) mmol/L Carbon Dioxide 22 (22-32) mmol/L Anion Gap 9 (2-11) mmol/L BUN 21 (6-24) mg/dL Creatinine 1.02 (0.67-1.17) mg/dL Est GFR ( Amer) 94.3 (>60) Est GFR (Non-Af Amer) 73.3 (>60) BUN/Creatinine Ratio 20.6 H (8-20) Glucose 221 H (70-100) mg/dL Hemoglobin A1c (4.0-5.6) % Lactic Acid (0.5-2.0) mmol/L Calcium 7.8 L (8.6-10.3) mg/dL Total Bilirubin 0.70 (0.2-1.0) mg/dL AST 23 (13-39) U/L ALT 19 (7-52) U/L Alkaline Phosphatase 112 H (34-104) U/L Troponin I 0.02 (<0.04) ng/mL C-Reactive Protein 217.65 H (< 5.00) mg/L Total Protein 6.1 L (6.4-8.9) g/dL Albumin 2.4 L (3.2-5.2) g/dL Globulin 3.7 (2-4) g/dL Albumin/Globulin Ratio 0.6 L (1-3) Prealbumin 4 L (18-38) mg/dL 07/20/17 07/20/17 07/20/17 Range/Units 19:15 19:15 19:15 WBC (3.5-10.8) 10^3/ul RBC (4.0-5.4) 10^6/ul Hgb (14.0-18.0) g/dl Hct (42-52) % MCV (80-94) fL MCH (27-31) pg MCHC (31-36) g/dl RDW (10.5-15) % Plt Count (150-450) 10^3/ul MPV (7.4-10.4) um3 Neut % (Auto) (38-83) % Lymph % (Auto) (25-47) % [place] % (Auto) (1-9) % Eos % (Auto) (0-6) % Baso % (Auto) (0-2) % Absolute Neuts (auto) (1.5-7.7) 10^3/ul Absolute Lymphs (auto) (1.0-4.8) 10^3/ul Absolute Monos (auto) (0-0.8) 10^3/ul Absolute Eos (auto) (0-0.6) 10^3/ul Absolute Basos (auto) (0-0.2) 10^3/ul Absolute Nucleated RBC 10^3/ul Nucleated RBC % ESR 115 H (0-40) mm/Hr INR (Anticoag Therapy) (0.77-1.02) APTT (26.0-36.3) seconds Sodium (133-145) mmol/L Potassium (3.5-5.0) mmol/L Chloride (101-111) mmol/L Carbon Dioxide (22-32) mmol/L Anion Gap (2-11) mmol/L BUN (6-24) mg/dL Creatinine (0.67-1.17) mg/dL Est GFR ( Amer) (>60) Est GFR (Non-Af Amer) (>60) BUN/Creatinine Ratio (8-20) Glucose (70-100) mg/dL Hemoglobin A1c 8.8 H (4.0-5.6) % Lactic Acid 0.9 (0.5-2.0) mmol/L Calcium (8.6-10.3) mg/dL Total Bilirubin (0.2-1.0) mg/dL AST (13-39) U/L ALT (7-52) U/L Alkaline Phosphatase (34-104) U/L Troponin I (<0.04) ng/mL C-Reactive Protein (< 5.00) mg/L Total Protein (6.4-8.9) g/dL Albumin (3.2-5.2) g/dL Globulin (2-4) g/dL Albumin/Globulin Ratio (1-3) Prealbumin (18-38) mg/dL Microbiology and Other Data: Microbiology 07/23/17 14:08 Skin and Soft Tissue MRSA/MSSA (PCR - Final Foot Right Mrsa Negative S.aureus Negative Gram Stain - Final Assess/Plan/Problems-Billing Assessment: 67 y/o male patient presenting to [facility] – [place] with right foot wound found to have 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
[2017-07-25] MEDS: oxyCODONE/Acetamin 5/325 MG* TAB PO PRN (16:51)
[2017-07-26] MEDS: Omeprazole CAP* 20 MG PO SCH (05:40)
--- NOTE | 2017-07-26 08:09 | PN ---
Progress Note - Progress Note Date of Service: 07/26/17 SOAP: Subjective: []Patient seen at bedside. He is comfortable, no complaints at this time. No CP , SOB, fever or chills. Objective: [] Vital Signs Temp 98.1 F 07/26/17 04:01 Pulse 84 07/26/17 04:01 Resp 16 07/26/17 04:01 BP 163/69 07/26/17 04:01 Pulse Ox 94 07/26/17 04:01 Intake & Output 07/25/17 07/26/17 07/26/17 18:59 06:59 18:59 Intake Total 300 0 Output Total 500 1225 275 Balance -200 -1225 -275 Intake: Oral 300 0 Output: Urine 500 1225 275 Other: # Bowel Movements 0 Laboratory Last Values WBC 12.7 10^3/ul (3.5-10.8) H 07/23/17 05:23 RBC 3.84 10^6/ul (4.0-5.4) L 07/23/17 05:23 Hgb 10.4 g/dl (14.0-18.0) L 07/23/17 05:23 Hct 31 % (42-52) L 07/23/17 05:23 MCV 81 fL (80-94) 07/23/17 05:23 MCH 27 pg (27-31) 07/23/17 05:23 MCHC 33 g/dl (31-36) 07/23/17 05:23 RDW 14 % (10.5-15) 07/23/17 05:23 Plt Count 303 10^3/ul (150-450) 07/23/17 05:23 MPV 8 um3 (7.4-10.4) 07/23/17 05:23 Neut % (Auto) 77.6 % (38-83) 07/23/17 05:23 Lymph % (Auto) 10.9 % (25-47) L 07/23/17 05:23 Clayton % (Auto) 7.8 % (1-9) 07/23/17 05:23 Eos % (Auto) 2.9 % (0-6) 07/23/17 05:23 Baso % (Auto) 0.8 % (0-2) 07/23/17 05:23 Absolute Neuts (auto) 10.0 10^3/ul (1.5-7.7) H 07/23/17 05:23 Absolute Lymphs (auto) 1.4 10^3/ul (1.0-4.8) 07/23/17 05:23 Absolute Monos (auto) 1.0 10^3/ul (0-0.8) H 07/23/17 05:23 Absolute Eos (auto) 0.4 10^3/ul (0-0.6) 07/23/17 05:23 Absolute Basos (auto) 0.1 10^3/ul (0-0.2) 07/23/17 05:23 Absolute Nucleated RBC 0 10^3/ul 07/23/17 05:23 Nucleated RBC % 0 07/23/17 05:23 ESR 115 mm/Hr (0-40) H 07/20/17 19:15 INR (Anticoag Therapy) 1.15 (0.77-1.02) H 07/23/17 05:23 APTT 32.6 seconds (26.0-36.3) 07/21/17 05:06 Sodium 131 mmol/L (133-145) L 07/23/17 05:23 Potassium 3.7 mmol/L (3.5-5.0) 07/23/17 05:23 Chloride 102 mmol/L (101-111) 07/23/17 05:23 Carbon Dioxide 24 mmol/L (22-32) 07/23/17 05:23 Anion Gap 5 mmol/L (2-11) 07/23/17 05:23 BUN 7 mg/dL (6-24) 07/23/17 05:23 Creatinine 0.69 mg/dL (0.67-1.17) 07/23/17 05:23 Est GFR ( Amer) 148.0 (>60) 07/23/17 05:23 Est GFR (Non-Af Amer) 115.1 (>60) 07/23/17 05:23 BUN/Creatinine Ratio 10.1 (8-20) 07/23/17 05:23 Glucose 145 mg/dL (70-100) H 07/23/17 05:23 POC Glucose (mg/dL) 181 mg/dL (70-100) H 07/25/17 21:33 Hemoglobin A1c 8.8 % (4.0-5.6) H 07/20/17 19:15 Lactic Acid 0.8 mmol/L (0.5-2.0) 07/21/17 05:06 Calcium 8.2 mg/dL (8.6-10.3) L 07/23/17 05:23 Total Bilirubin 0.70 mg/dL (0.2-1.0) 07/20/17 19:15 AST 23 U/L (13-39) 07/20/17 19:15 ALT 19 U/L (7-52) 07/20/17 19:15 Alkaline Phosphatase 112 U/L (34-104) H 07/20/17 19:15 Troponin I 0.02 ng/mL (<0.04) 07/20/17 19:15 C-Reactive Protein 217.65 mg/L (< 5.00) H 07/20/17 19:15 Total Protein 6.1 g/dL (6.4-8.9) L 07/20/17 19:15 Albumin 2.4 g/dL (3.2-5.2) L 07/20/17 19:15 Globulin 3.7 g/dL (2-4) 07/20/17 19:15 Albumin/Globulin Ratio 0.6 (1-3) L 07/20/17 19:15 Prealbumin 4 mg/dL (18-38) L 07/20/17 19:15 Triglycerides 192 mg/dL 07/24/17 08:48 Cholesterol 112 mg/dL 07/24/17 08:48 LDL Cholesterol 60 mg/dL 07/24/17 08:48 HDL Cholesterol 13.9 mg/dL 07/24/17 08:48 Urine Color Gladys 07/21/17 05:09 Urine Appearance Cloudy 07/21/17 05:09 Urine pH 5.0 (5-9) 07/21/17 05:09 Ur Specific Meridian 1.021 (1.010-1.030) 07/21/17 05:09 Urine Protein 2+(100 mg/dl) (Negative) H 07/21/17 05:09 Urine Ketones Trace (Negative) H 07/21/17 05:09 Urine Blood 1+ (Negative) H 07/21/17 05:09 Urine Nitrate Negative (Negative) 07/21/17 05:09 Urine Bilirubin Negative (Negative) 07/21/17 05:09 Urine Urobilinogen Negative (Negative) 07/21/17 05:09 Ur Leukocyte Esterase Negative (Negative) 07/21/17 05:09 Urine WBC (Auto) 2+(11-20/hpf) (Absent) H 07/21/17 05:09 Urine RBC (Auto) 2+(6-10/hpf) (Absent) H 07/21/17 05:09 Urine Bacteria Absent (Absent) 07/21/17 05:09 Hyaline Casts Present (Absent) H 07/21/17 05:09 Urine Glucose 1+(50 mg/dl) (Negative) H 07/21/17 05:09 Vancomycin Trough 21.0 mcg/mL 07/24/17 08:48 General: Well appearing, NAD RLE: Dressing changed. two 0.5 cm holes packed with gauze. Sutures intact without erythema or discharge Assessment: []s/p right midfoot amputation Plan: []Daily DSD fu in office with Dr Barth next NWB RLE
[2017-07-26] MEDS: Insulin LISPRO* 1 UNITS UNIT SUBCUT SCH ×2 (08:28→14:28)
[2017-07-26] MEDS: Nicotine Patch Removal NOTE PATCH OFF SCH (08:29)
[2017-07-26] MEDS: Aspirin EC Low Dose* 81 MG TAB.EC PO SCH (08:29)
[2017-07-26] MEDS: metroNIDAZOLE TAB* 250 MG PO SCH (08:29)
[2017-07-26] MEDS: Docusate CAP* 100 MG PO SCH (08:29)
[2017-07-26] MEDS: Nicotine PATCH 14 MG/24 HR* PATCH TRANSDERM SCH (08:36)
[2017-07-26 13:19] VITALS: BP 156/65
--- NOTE | 2017-07-26 14:05 | DS ---
CC: Dr. Cowart; Dr. Gaines; Dr. Barth; Dr. Montilla; Dr. Cavanaugh, [facility]. * DISCHARGE SUMMARY: DATE OF ADMISSION: 07/20/17 DATE OF DISCHARGE: Transfer to [facility] on 07/26/17. PRIMARY CARE PROVIDER: Dr. Ashish Cavanaugh. DISCHARGE DIAGNOSES: 1. Right foot osteomyelitis, chronic, status post right midfoot amputation by Dr. Barth on 07/23/17. Patient is being discharged with plan of treatment of ceftriaxone. Today is day is 6 out 42 of ceftriaxone treatment and Flagyl day 3 out of 14 days of treatment. 2. Diabetes type 2. Patient was not taking his medications at home and used to be on metformin. 3. Hypertension. 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 MEDICATIONS AT DISCHARGE: Include: 1. Ceftriaxone 2 g IV every 24 hours. Patient is day 6 out of 42 days and last day is on 08/31/17. 2. Flagyl 500 mg p.o. b.i.d. Patient is day 3 out of 14 days of treatment and the last day of treatment is 08/06/17. 3. Acetaminophen 650 mg on a p.r.n. basis. 4. Albuterol nebulizer on a p.r.n. basis. 5. Aspirin 81 mg daily. 6. Colace 200 mg b.i.d. 7. Heparin flushes to left forearm PICC line as per protocol. 8. Insulin as per sliding scale. 9. Melatonin 3 mg at bedtime p.r.n. 10. Metformin 500 mg daily. 11. Nicotine patch 14 mg per 24 hours, apply transdermally daily. 12. Omeprazole 20 mg daily. 13. Oxycodone with acetaminophen 5/325 mg every 4 hours p.r.n. CONSULTATIONS DURING THE HOSPITAL STAY: Included Dr. Barth from Orthopedic Surgery; Dr. Gaines and Dr. Cowart from Interventional for possibility of intervention to patient's vasculature of bilateral lower extremities. STUDIES PERFORMED DURING THE HOSPITAL STAY: Included: Venous Dopplers of the right leg showed no DVT on 07/24/17. Arterial study of the right lower extremity on 07/22/17, impression, "decreased ankle-brachial indices in the claudication range, on the right was 0.61 and on the left was 0.74." Transthoracic echocardiogram obtained on 07/22/17 showed EF of 55% to 60% with moderate thickening of the right coronary cusp, trace aortic regurgitation, and borderline aortic stenosis. There was [id number] mitral regurgitation and moderate tricuspid regurgitation and moderate pulmonary hypertension. HOSPITALIZATION COURSE: Hao Subramanian is a 67-year-old male with a history of medical noncompliance, who is diabetic, but he stopped taking his metformin months prior to his presentation to the emergency department on 07/21/17, complaining of his "right foot is rotting." Patient was noted to have necrosis of most of his toes on the right foot and an MRI of the right lower extremity performed on 07/20/17 showed impression, "extensive soft tissue inflammatory change involving the subcutaneous tissue plane and skeletal musculature of the visualized ankle and foot with associated soft tissue gas at the foot as described. No loculated abscess. It is most consistent with osteomyelitis of the foot involving the 1st, 2nd, 3rd and 4th digits at various extents." Dr. Barth saw patient for orthopedic consultation and recommended amputation of the right midfoot, that occurred on 07/23/17. Postoperatively, the patient is to be nonweightbearing on the right foot. Patient also has a postoperative area that needs to be packed on a daily basis with sterile gauze dressings and wrapped with Kenton bandages. The patient also was noted to have uncontrolled diabetes with hemoglobin A1c noted to be 8.8 at admission. Has metformin being restarted at discharge. He is also to continue his insulin sliding scale. Please note that the patient due to his nonweightbearing status of the right foot and daily dressing changes , patient needed to be placed in a [facility] and he is being accepted to swing bed status at [facility] today. At discharge, patient is recommended to follow up with Dr. Montilla in [address] Barth would like to see the patient next which is in 1 week on . While on IV antibiotics, Dr. Montilla recommends weekly CBC, CRPs, and CMPs to be sent to his office. Patient is also to follow up with the physician at [facility] with swing facility. PHYSICAL EXAMINATION: At the time of discharge, blood pressure of 161/68. Please note that this is just a recent blood pressure that had been elevated over the patient's 7 days of his hospital stay. Heart rate of 81 and regular, respiratory rate 16, oxygen saturation 92% on room air, temperature 97.7. General: This is a pleasant 67-year-old male who is in no acute distress. Alert, awake, and oriented x3. HEENT: Head is atraumatic, normocephalic. Eyes : Pupils are equal, reactive to light and accommodation. Oropharynx is clear. Mucosa moist. Neck: Supple, no JVD. No bruit bilaterally. Cardiovascular: Regular rate and rhythm. No murmurs. Respiratory: Clear to auscultation bilaterally. Abdomen: Soft, nontender, bowel sounds present in all quadrants. Extremities: Patient is status post right distal upper extremity amputation remotely with stump healed. Right lower extremity status post midfoot amputation with postoperative dressings not removed during my evaluation and being followed by the orthopedic surgeons during the hospital stay. Patient is also status post remote amputation of the left 1st toe. Patient has poor pedal pulses bilaterally, but there is no clubbing or cyanosis noted. Neuro Evaluation: Speech clear. Cranial nerves II through XII grossly intact. Motor strength is 5/5 bilaterally. Please also note that the patient had a vascular evaluation with Dr. Cowart and Dr. Gaines. Dr. Cowart noted that patient has claudication range ankle- brachial indices and he may be a candidate for further revascularization or angioplasty if his wound does not heal in the future. Please note that this is a short summary of patient's long and complicated hospitalization. Please refer to further medical records for details. TIME SPENT: Approximately 50 minutes were spent on the patient's discharge. [id number]/CPS #: [id number] NICOLE
== END 2017-07-26 15:13 | DRG 616 ==
LOC: ED 18:49 → SSU 20:04
PROVIDERS: ADMIT Hospitalist; ATTEND Internal Medicine
PROC: 0Y6M0Z0 Detachment at Right Foot, Complete, Open Approach (ICD-10-PCS; principal; 2017-07-21)
PROC: 0LNN0ZZ Release Right Lower Leg Tendon, Open Approach (ICD-10-PCS; 2017-07-21)
PROC: 02HV33Z Insertion of Infusion Device into Superior Vena Cava, Percutaneous Approach (ICD-10-PCS; 2017-07-26)
DX: E11.69 Type 2 diabetes mellitus with other specified complication (principal); E43 Unspecified severe protein-calorie malnutrition; E11.40 Type 2 diabetes mellitus with diabetic neuropathy, unspecified; I27.20 Pulmonary hypertension, unspecified; I96 Gangrene, not elsewhere classified; M86.671 Other chronic osteomyelitis, right ankle and foot; I08.3 Combined rheumatic disorders of mitral, aortic and tricuspid valves; E11.52 Type 2 diabetes mellitus with diabetic peripheral angiopathy with gangrene; F17.210 Nicotine dependence, cigarettes, uncomplicated; I25.10 Atherosclerotic heart disease of native coronary artery without angina pectoris; R94.31 Abnormal electrocardiogram [ECG] [EKG]; L03.031 Cellulitis of right toe; M65.871 Other synovitis and tenosynovitis, right ankle and foot; I10 Essential (primary) hypertension; Z79.84 Long term (current) use of oral hypoglycemic drugs; Z79.4 Long term (current) use of insulin; Z79.01 Long term (current) use of anticoagulants; Z91.14 Patient's other noncompliance with medication regimen; Z91.041 Radiographic dye allergy status; Z89.9 Acquired absence of limb, unspecified; Z89.422 Acquired absence of other left toe(s); Z79.82 Long term (current) use of aspirin; Z68.26 Body mass index [BMI] 26.0-26.9, adult
CPT/HCPCS: 36415; 71045; 80048; 80053; 80061; 80202; 81003; 81015; 83036; 83605; 84134; 84484; 85025; 85610; 85652; 85730; 86140; 87040; 87070; 87073; 87076; 87077; 87184; 87186; 87205; 87640; 87641; 88307; 88311; 93005; 93306; 93922; 94760; 99283; 99406; A9270-GY; C1751; J0692; J0696; J1644; J1885; J2250; J2405; J2704; J2765; J3010; J3370

== ENCOUNTER 2017-11-15 16:15 | Inpatient (IN) | payer MEDICARE, MEDICAID ==
[2017-11-15] MEDS ORDERED: Dextrose 50% Syringe 50 ML* 25 GM/50 ML SYRINGE IV PUSH PRN (20:18)
[2017-11-15] MEDS ORDERED: Ondansetron INJ* 2 MG/ML VIAL IV PRN (20:20)
[2017-11-15] MEDS ORDERED: NS 0.9% 1000 ML* 1,000 ML IV SCH (20:30)
[2017-11-15] MEDS ORDERED: Bisacodyl SUPP* 10 MG SUPP PR PRN (20:42)
[2017-11-15] MEDS ORDERED: Vancomycin per Pharmacy* NOTE FOLLOW UP PRN (20:51)
[2017-11-15] MEDS ORDERED: Docusate CAP* 100 MG PO PRN (20:51)
[2017-11-15] MEDS ORDERED: CMCS Melatonin (NF) 3 MG TAB PO SCH (21:00)
[2017-11-15] MEDS ORDERED: Vancomycin(*) 1,250 MG in NS 0.9% 250 ML* 250 ML IVPB ONE (21:00)
[2017-11-15] MEDS ORDERED: Vancomycin(*) 0 MG in NS 0.9% 250 ML* 250 ML IVPB SCH (21:00)
--- NOTE | 2017-11-15 21:13 | RAD ---
HISTORY: Fever, sepsis COMPARISONS: July 20, 2017 VIEWS: 2: Frontal and lateral views of the chest. FINDINGS: CARDIOMEDIASTINAL SILHOUETTE: The cardiomediastinal silhouette is normal. SALMA: The salma are normal. PLEURA: There is blunting of the costophrenic angles on the lateral views. LUNG PARENCHYMA: There is hyperinflation. There is prominence of the central pulmonary vasculature with a diffuse pattern of reticular opacification. ABDOMEN: The upper abdomen is clear. There is no subphrenic gas. BONES AND SOFT TISSUES: No bone or soft tissue abnormalities are noted. OTHER: None. IMPRESSION: 1. HYPERINFLATION. 2. PULMONARY INTERSTITIAL EDEMA. 3. SMALL BILATERAL PLEURAL EFFUSIONS.
[2017-11-15] MEDS: Famotidine TAB* 20 MG PO SCH (21:46)
[2017-11-15] MEDS: diPHENhydraMINE PO* 25 MG PO PRN (21:46)
[2017-11-15] MEDS: Heparin VIAL(*) 5000 UNITS/ML VIAL (FIVE THOUSAND) SUBCUT SCH (21:52)
[2017-11-15] MEDS: oxyCODONE/Acetamin 5/325 MG* TAB PO PRN (22:06)
[2017-11-15 22:23] LABS: EGFR Non-African American 95.6 (>60)
[2017-11-16 00:50] LABS: Urine Appearance Clear; Urine Blood 3+ (Negative); Urine Color Yellow; Urine Ketones Negative (Negative); Urine Protein 2+(100 mg/dL) (Negative); Urine Specific Gravity 1.013 (1.010-1.030); Urine Urobilinogen Negative (Negative)
--- NOTE | 2017-11-16 01:07 | HP ---
CC: Dr. Cavanaugh * HISTORY AND PHYSICAL: DATE OF ADMISSION: 11/15/17 PROVIDER: Ariana Bee NP PRIMARY CARE PROVIDER: Dr. Cavanaugh. ATTENDING PHYSICIAN WHILE IN THE HOSPITAL: Dr. Pamela Ruiz * (dictated by Ariana Bee NP). CHIEF COMPLAINT: 1. Fever. 2. Bacteremia. 3. Osteomyelitis. HISTORY OF PRESENT ILLNESS: Mr. Subramanian is a pleasant 67-year-old male patient of Dr. Cavanaugh who was transferred from [facility] today, 11/15/17, for concern of sepsis and staph bacteremia. The patient developed rigors today with a fever of 102.3 at [place] and became hypertensive and tachycardic. There was suspicion of worsening infection. The patient does have any lab work from [place] today that does show mild leukocytosis. He has been on antibiotics at [place] for the past 2 weeks. Mr. Subramanian has been followed by Dr. Barth who saw the patient yesterday. The patient reports that Dr. Barth drained an abscess on his right foot yesterday and there was pus and blood coming out of the wound. He is also being followed by Dr. Montilla. Initially at [facility] the patient was started on Zosyn and then changed to [address] . [address]. Montilla increased his Ancef to 2 g q.8 hours on 11/05/17, then subsequently developed a rash on his trunk and lower extremities, which started on 11/12/17. The rash was originally treated with Benadryl and hydrocortisone cream. The rash continued to worsen and now is diffuse. Initially he reported the rash as burning and itching, now he reports the rash as being painful. Mr. Subramanian is scheduled with Dr. Barth to have a right below the knee amputation on 11/19/17. Given this concern for increased infection, the patient was transferred to our facility for further evaluation and medical support. PAST MEDICAL HISTORY: Significant for: 1. Right foot osteomyelitis. 2. Diabetes type 2. 3. Hypertension. 4. Staph bacteremia on 11/01/17. PAST SURGICAL HISTORY: 1. 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 2. Left 1st toe amputation. 3. Right metatarsal amputation. CURRENT MEDICATIONS: Include: 1. Acetaminophen 650 mg p.o. q.4 hours as needed. 2. Aspirin 81 mg p.o. daily. 3. Dulcolax suppository 10 mg daily p.r.n. constipation. 4. Benadryl 25 mg p.o. q.8 hours as needed. 5. Colace 200 mg p.o. b.i.d. p.r.n. 6. Pepcid 20 mg p.o. b.i.d. 7. Lispro sliding scale. 8. Lactulose 30 mL p.o. daily. 9. Lisinopril 10 mg p.o. daily. 10. Magnesium oxide 400 mg p.o. daily. 11. MiraLAX 17 g p.o. daily. 12. Vancomycin 1000 mg IV q.12 hours. ALLERGIES TO MEDICATION: CONTRAST DYE. FAMILY HISTORY: Reviewed and noncontributory. SOCIAL HISTORY: The patient reports that up until about 2 weeks ago he smoked 1 -1/2 to 2 packs of cigarettes per day. He denies any alcohol or drug use. He states that he is . He lives alone. The patient wishes to be a DNR. Surrogate decision maker is his daughter Ariana. Her phone number is [phone] , in the event he is unable to make his own decisions. REVIEW OF SYSTEMS: The patient had a documented fever today of 102.3. There has been no significant weight change, no double vision, no ear discharge. Denies any rhinorrhea or sore throat. Denies any chest pain or shortness of breath. Denies any cough or congestion. Denies any nausea, vomiting or diarrhea. Denies any abdominal pain, denies any dysuria or urinary frequency. Denies any loss of consciousness, any seizures. He does report a skin rash to his abdomen and bilateral lower legs that started approximately 1 week ago. A review of 14 systems was completed and all others are negative. PHYSICAL EXAMINATION GENERAL: At this time, Mr. Subramanian is a 67-year-old gentleman who appears comfortable resting in the bed. He does not appear to be in any acute distress. VITAL SIGNS: Temperature was 99.5, pulse was 90, respirations 18, O2 saturation 97%, blood pressure 177/85. HEENT: Head is atraumatic, normocephalic. Eyes: EOMs are intact. Sclerae anicteric and not pale. Oral mucosa appears to be moist NECK: Supple. LUNGS: Clear to auscultation bilaterally. They are diminished in the bases bilaterally. There is no rales or rhonchi. CARDICA: S1, S2. Regular rate and rhythm. There is no murmurs, rubs or gallops. ABDOMEN: Soft, flat, and nontender. Bowel sounds are present x4. EXTREMITIES: He has his dressing intact to his right lower foot. Dressing was removed. There is an open area to the top of the foot and there is also an area of redness that is open on the right lateral aspect of the foot near the heel. A dry dressing was reapplied with an Kenton wrap. There is no red streaking noted. Extremities are warm to the touch. Sensation is intact. He is able to move all 4 extremities. Upper left extremity with 5/5 strength. He does have [id number] amputation on the right. Left lower leg with 5/ 5 strength right lower 4/5 strength. NEUROLOGIC: He is awake, alert and oriented x3. Speech is clear. There is no focal deficits. SKIN: Left lower extremity with purple purpura looking rash noted from the knee down. He has a raised, slightly erythematous plaque like rash noted to bilateral upper legs and abdomen. DIAGNOSTIC STUDIES AND LABORATORY DATA: WBCs from 11/15/17 at 1426 were 15.52 , RBCs were 4.88, hemoglobin was 12.5, hematocrit was 40.3, platelet count was 551. Sodium was 138, potassium 4.2, chloride was 102, carbon dioxide was 31, anion gap was 10, BUN was 15, creatinine 1.1, random glucose was 125, lactic acid was 1.9, calcium was 8.6. ASSESSMENT AND PLAN: Mr. Subramanian is a 67-year-old gentleman who was transferred from [facility] today for further evaluation of fever and possible sepsis related to staph bacteremia and osteomyelitis of the right foot. The patient will be admitted in inpatient status for: 1. Fever. I suspect his fever is related to osteomyelitis in his right lower foot. The patient reports that yesterday he was seen by Dr. Barht who drained an abscess on the foot. The patient developed a fever today of 102.3. The patient did have a MICAH on 11/12/17. At that time, there were no vegetations on any of the valves. EF was 55% to 60%. The right ventricular global systolic function was normal. The left global left ventricular wall motion and contractility are within normal limits. There was no left ventricular systolic dysfunction. There was mild aortic stenosis. There was no aortic vegetation. There was no vegetation observed on the mitral valve or the tricuspid valve. The pericardium appeared to be normal. I will order a urinalysis, a chest x-ray , repeat blood cultures, an ESR and lactic acid. I will repeat a CBC and BMP, CRP, and an INR in the morning. I have consulted Infectious Disease, Dr. Montilla, as Dr. Montilla has been following this patient at [facility] as well. 2. Osteomyelitis. I will consult Orthopedics as they have been following in his case. He is scheduled for surgery on 11/19/17 for amputation of the right foot. We will continue him on vancomycin as per pharmacy dosing. 3. Hypertension. We will continue him on his lisinopril 10 mg daily. 4. Diabetes. We will place him on Accu-Cheks a.c. and cover on Lispro sliding scale. I will hold his metformin at this time. 5. Rash. The patient has a purple rash note to the left lower leg and a generalized raised mildly red plaque type rash to the abdomen and bilateral upper legs. We will continue to monitor this. 6. DVT prophylaxis: The patient will be placed on heparin subcu. 7. Code status: The patient wishes to be a do not resuscitate. 8. Fluid, electrolyte and nutrition: He can be placed on a heart healthy, low sodium diet. Caffeine okay. TIME SPENT: Time spent on this admission was approximately 70 minutes, greater than half that time was spent [id number] with the patient obtaining his history and physical. The other half of the time was spent going over the plan of care and implementing my plan of care. I have discussed this with my attending Dr. Pamela Ruiz, she is in agreement with my plan. ARIANA BEE, FINGERPRINTER [id number]/[facility] #: [id number] NICOLE
[2017-11-16] MEDS: Heparin VIAL(*) 5000 UNITS/ML VIAL (FIVE THOUSAND) SUBCUT SCH ×3 (05:39→20:51)
[2017-11-16 07:28] LABS: Hematocrit 32 % (42-52); Hemoglobin 10.4 g/dl (14.0-18.0); Mean Corpuscular HGB Conc 32 g/dl (31-36); Mean Corpuscular Hemoglobin 25 pg (27-31); Mean Corpuscular Volume 79 fL (80-94); Mean Platelet Volume 7.5 um3 (7.4-10.4); Platelet Count 396 10^3/ul (150-450); Red Blood Count 4.09 10^6/ul (4.0-5.4); Red Cell Distribution Width 15 % (10.5-15); White Blood Count 11.2 10^3/ul (3.5-10.8)
[2017-11-16 07:36] LABS: ABS Basophils 0.1 10^3/ul (0-0.2); ABS Eosinophils 0.1 10^3/ul (0-0.6); ABS Lymphocytes 1.7 10^3/ul (1.0-4.8); ABS Monocytes 1.1 10^3/ul (0-0.8); ABS Neutrophils 8.3 10^3/ul (1.5-7.7); ABS Nucleated RBC 0 10^3/ul; Eosinophil % 0.7 % (0-6); Lymphocyte % 15.3 % (25-47); Nucleated Red Blood Cells % 0
[2017-11-16 07:41] LABS: EGFR Non-African American 94.3 (>60)
[2017-11-16 07:46] LABS: INR 1.02 (0.77-1.02)
[2017-11-16] MEDS ORDERED: Influenza VAC *QUAD* 2017-18* 0.5 ML SYRINGE IM ONE (09:00)
[2017-11-16] MEDS ORDERED: Pneumococcal *Vac Polyvalent 0.5 ML VIAL IM ONE (09:00)
[2017-11-16] MEDS: Insulin LISPRO* 1 UNITS UNIT SUBCUT SCH ×3 (09:35→18:25)
[2017-11-16] MEDS: Famotidine TAB* 20 MG PO SCH ×2 (09:36→20:50)
[2017-11-16] MEDS: Lisinopril TAB* 10 MG PO SCH (09:36)
[2017-11-16] MEDS: Polyethylene Glycol 3350* 17 GM PACKET PO SCH (09:36)
[2017-11-16] MEDS: Magnesium Oxide TAB* 400 MG PO SCH (09:36)
[2017-11-16] MEDS: Aspirin EC TAB* 81 MG TAB.EC PO SCH (09:36)
[2017-11-16] MEDS: Vancomycin(*) 1,250 MG in NS 0.9% 250 ML* 250 ML IVPB SCH ×2 (10:10→22:53)
[2017-11-16] MEDS: Acetaminophen TAB* 325 MG PO PRN ×2 (10:16→20:50)
[2017-11-16] MEDS: diPHENhydraMINE PO* 25 MG PO PRN (10:16)
--- NOTE | 2017-11-16 12:15 | PN ---
PROGRESS NOTE: DATE OF SERVICE: 11/15/17 HISTORY OF PRESENT ILLNESS: Hao is a pleasant 67-year-old gentleman, who has had significant infection of his right lower extremity. 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 He has basically been chronically staying at [facility]. He was seen in my office this week and was noted to have some blistering and puffiness in the lateral stump of his right leg. I aspirated what appeared to be bloody fluid from this blister, expressing perhaps 5 cc. Cultures were sent and the foot was rewrapped. Yesterday, he was brought from [place] with some signs of sepsis, fevers, chills, a high temperature, and a sed rate of 98. Today, in the hospital bed, he appears to have significant eruptive rash over both lower extremities, possibly drug related. He is not in any significant pain, does not appear to be in any acute distress. His workup is underway for other possible septic sources, although clearly the right foot would be the principal source. He also needs some fluid and antibiotic stabilization and some evaluation of this rash going on. Infectious Disease could be helpful in this regard. We have him scheduled for below-knee amputation on Sunday, 3 days from now, but I am certainly happy to pursue this at an earlier date should the medical team feel that an early intervention would be helpful, obviously once medical stabilization has been achieved. [id number]/CPS #: [id number] MTDD
--- NOTE | 2017-11-16 18:36 | PN ---
Subjective Date of Service: 11/16/17 Interval History: Patient reports that he is feeling better. Denies fevers or chills, denies chest pain or shortness of breath. Denies any abd pain n/v/d. reports rash is improving and and the pain associated with the rash is better Family History: Unchanged from Admission Social History: Unchanged from Admission Past Medical History: Unchanged from Admission Objective Active Medications: Acetaminophen (Tylenol Tab*) 650 mg PO Q4H PRN PRN Reason: FEVER/PAIN Last Admin: 11/16/17 10:16 Dose: 650 mg Aspirin (Aspirin Ec Tab*) 81 mg PO DAILY [facility] Last Admin: 11/16/17 09:36 Dose: 81 mg Bisacodyl (Dulcolax Supp*) 10 mg [place] DAILY PRN PRN Reason: CONSTIPATION Dextrose (D50w Syringe 50 Ml*) 12.5 gm IV PUSH .FOR FS < 60 - SS PRN PRN Reason: FS < 60 Diphenhydramine HCl (Benadryl Po*) 25 mg PO Q8H PRN PRN Reason: ITCHING Last Admin: 11/16/17 10:16 Dose: 25 mg Docusate Sodium (Colace Cap*) 200 mg PO BID PRN PRN Reason: CONSTIPATION Famotidine (Pepcid Tab*) 20 mg PO BID [facility] Last Admin: 11/16/17 09:36 Dose: 20 mg Heparin Sodium (Porcine) (Heparin Vial(*)) 5,000 units SUBCUT Q8HR [facility] Last Admin: 11/16/17 14:56 Dose: 5,000 units Vancomycin HCl 1,250 mg/ (Sodium Chloride) 250 mls @ 166.667 mls/hr IVPB Q12H [facility] Last Admin: 11/16/17 10:10 Dose: 166.667 mls/hr Insulin Human Lispro (Humalog*) 0 units SUBCUT AC [facility] PRN Reason: Protocol Last Admin: 11/16/17 18:25 Dose: Not Given Lactulose (Lactulose*) 30 ml PO DAILY [facility] Last Admin: 11/16/17 09:36 Dose: 30 ml Lisinopril (Prinivil Tab*) 10 mg PO DAILY [facility] Last Admin: 11/16/17 09:36 Dose: 10 mg Magnesium Oxide (Magox 400 Tab*) 400 mg PO DAILY [facility] Last Admin: 11/16/17 09:36 Dose: 400 mg Melatonin (Melatonin (Nf)) 3 mg PO BEDTIME [facility] Ondansetron HCl (Zofran Inj*) 4 mg IV Q4H PRN PRN Reason: NAUSEA/VOMITING Oxycodone/Acetaminophen (Percocet 5/325 Tab*) 1 tab PO Q6H PRN PRN Reason: PAIN Last Admin: 11/15/17 22:06 Dose: 1 tab Pharmacy Consult (Vancomycin Per Pharmacy*) 1 note FOLLOW UP . PRN PRN Reason: PER PROTOCOL Pharmacy Profile Note (Vancomycin Trough Check) 1 note FOLLOW UP 929 ONE Stop: 11/17/17 09:31 Polyethylene Glycol/Electrolytes (Miralax*) 17 gm PO DAILY [facility] Last Admin: 11/16/17 09:36 Dose: 17 gm Vital Signs - 8 hr 11/16/17 11/16/17 11/16/17 11:46 13:42 15:13 Temperature 98.6 F 98.6 F Pulse Rate 77 84 Respiratory 16 16 16 Rate Blood Pressure 156/62 167/78 (mmHg) O2 Sat by Pulse 94 100 Oximetry Oxygen Devices in Use Now: None Appearance: appears comfortable resting in bed, no acute distress Eyes: No Scleral Icterus Ears/Nose/Mouth/Throat: Clear Oropharnyx, Mucous Membranes Moist Neck: NL Appearance and Movements; NL JVP, Trachea Midline Respiratory: Symmetrical Chest Expansion and Respiratory Effort, Clear to Auscultation Cardiovascular: NL Sounds; No Murmurs; No JVD Abdominal: NL Sounds; No Tenderness; No Distention Extremities: No Edema, - - dressing intact to right foot dry, purpura rash noted toleft lower leg. rash to bilat leg and abd improving , above the wrist amp on the right. Skin: - - left lower leg with purpura and rash to bilat lower legs and abd improving Neurological: Alert and Oriented x 3, NL Muscle Strength and Tone Nutrition: Taking PO's Result Diagrams: 11/16/17 07:11 11/16/17 07:11 Assess/Plan/Problems-Billing Assessment: Mr. Subramanian is a 67 y.o male with a history of DM, HTN and osteomylitis with poor wound healing on the right foot. was transferred from [facility] for evaluation of possible sepsis. - Patient Problems (1) Osteomyelitis Current Visit: No Status: Acute Priority: High Code(s): M86.9 - OSTEOMYELITIS, UNSPECIFIED SNOMED Code(s): 67141476 Comment: Ortho following- is scheduled for below the knee ampuation on the right on sunday id consulted- will continue vancomycin as patient's WBC's continue to improve 11.2 today- patient did have pain when vancomycin was initially started - has no c/o pain now suspect rash to bilat leg and abd was related to ancef - will continue to monitor for fever (2) Diabetes Current Visit: No Status: Acute Priority: High Code(s): E11.9 - TYPE 2 DIABETES MELLITUS WITHOUT COMPLICATIONS SNOMED Code(s): 42357758 Comment: lispro SS and fingersticks (3) HTN (hypertension) Current Visit: No Status: Acute Priority: High Code(s): I10 - ESSENTIAL ( PRIMARY) HYPERTENSION SNOMED Code(s): 17388090 Comment: SBP 150's to 160's Will continue lisinopril - may need to increase dose (4) Rash Current Visit: Yes Status: Acute Code(s): R21 - RASH AND OTHER NONSPECIFIC SKIN ERUPTION SNOMED Code(s): 277918460 Comment: suspect this is related to drug rash - will continue benadryl 25 mg po as needed for itching rash has improved since yestreday- pain associated with the rash is gone - does continue to have purpura rash to left lower leg continues to tolerate vancomycin (5) DVT prophylaxis Current Visit: No Status: Acute Priority: High Code(s): XWB7601 - SNOMED Code(s): 848641046 Comment: heparin sub-q (6) Full code status Current Visit: No Status: Acute Priority: High Code(s): Z78.9 - OTHER SPECIFIED HEALTH STATUS SNOMED Code(s): 217739311 Status and Disposition: inpatient
[2017-11-16] MEDS: oxyCODONE/Acetamin 5/325 MG* TAB PO PRN (18:59)
[2017-11-16] MEDS: amLODIPine TAB* 5 MG PO SCH (20:50)
[2017-11-16] MEDS: CMCS Melatonin (NF) 3 MG TAB PO SCH (20:51)
[2017-11-17] MEDS: Acetaminophen TAB* 325 MG PO PRN ×2 (03:54→20:02)
[2017-11-17 05:35] LABS: ABS Basophils 0.1 10^3/ul (0-0.2); ABS Eosinophils 0.1 10^3/ul (0-0.6); ABS Lymphocytes 1.7 10^3/ul (1.0-4.8); ABS Neutrophils 8.4 10^3/ul (1.5-7.7); ABS Nucleated RBC 0 10^3/ul; Eosinophil % 1.2 % (0-6); Hematocrit 29 % (42-52); Hemoglobin 9.7 g/dl (14.0-18.0); Lymphocyte % 14.7 % (25-47); Mean Corpuscular HGB Conc 33 g/dl (31-36); Mean Corpuscular Hemoglobin 26 pg (27-31); Mean Corpuscular Volume 79 fL (80-94); Mean Platelet Volume 7.4 um3 (7.4-10.4); Nucleated Red Blood Cells % 0; Platelet Count 354 10^3/ul (150-450); Red Blood Count 3.75 10^6/ul (4.0-5.4); Red Cell Distribution Width 15 % (10.5-15); White Blood Count 11.3 10^3/ul (3.5-10.8)
[2017-11-17 05:46] LABS: EGFR Non-African American 99.9 (>60)
[2017-11-17] MEDS: Heparin VIAL(*) 5000 UNITS/ML VIAL (FIVE THOUSAND) SUBCUT SCH ×3 (05:53→22:55)
[2017-11-17] MEDS: Insulin LISPRO* 1 UNITS UNIT SUBCUT SCH ×3 (09:21→17:37)
[2017-11-17] MEDS: amLODIPine TAB* 5 MG PO SCH (09:22)
[2017-11-17] MEDS: Famotidine TAB* 20 MG PO SCH ×2 (09:22→20:02)
[2017-11-17] MEDS: Aspirin EC TAB* 81 MG TAB.EC PO SCH (09:22)
[2017-11-17] MEDS: Polyethylene Glycol 3350* 17 GM PACKET PO SCH (09:23)
[2017-11-17] MEDS: Lisinopril TAB* 10 MG PO SCH (09:23)
[2017-11-17] MEDS: Magnesium Oxide TAB* 400 MG PO SCH (09:23)
[2017-11-17] MEDS ORDERED: Vancomycin Trough Check NOTE FOLLOW UP ONE (09:30)
[2017-11-17] MEDS: Vancomycin(*) 1,250 MG in NS 0.9% 250 ML* 250 ML IVPB SCH ×2 (11:04→22:55)
[2017-11-17] MEDS: diPHENhydraMINE PO* 25 MG PO PRN ×2 (11:04→23:04)
--- NOTE | 2017-11-17 12:18 | PN ---
Progress Note - Progress Note Date of Service: 11/17/17 SOAP: Subjective: Mr. Subramanian is a 67 yo male who was admitted due signs of sepsis and rash thought secondary to right foot infection on 11/15/17. He reports he is feeling better, rash is improving, pain decreasing. Temperature to 100.2F overnight. VSS. Sitting comfortably in bed, taking with roommate. WBC count stable overnight. Objective: Vital Signs Temp 98.2 F 11/17/17 07:30 Pulse 84 11/17/17 07:30 Resp 18 11/17/17 11:04 BP 155/75 11/17/17 07:30 Pulse Ox 100 11/17/17 07:30 Intake & Output 11/16/17 11/17/17 11/17/17 18:59 06:59 18:59 Intake Total 2353 100 Output Total 300 275 850 Balance 2052 -175 -850 Intake: IV Fluids 803 Normal Saline 803 IVPB 580 Vancomycin 580 Oral 970 100 Output: Urine 300 850 Carlson 275 Laboratory Results - last 24 hr 11/16/17 11/16/17 11/17/17 11:58 17:02 05:16 WBC 11.3 H RBC 3.75 L Hgb 9.7 L Hct 29 L MCV 79 L MCH 26 L MCHC 33 RDW 15 Plt Count 354 MPV 7.4 Neut % (Auto) 74.1 Lymph % (Auto) 14.7 L [place] % (Auto) 8.8 H Eos % (Auto) 1.2 Baso % (Auto) 1.2 Absolute Neuts (auto) 8.4 H Absolute Lymphs (auto) 1.7 Absolute Monos (auto) 1.0 H Absolute Eos (auto) 0.1 Absolute Basos (auto) 0.1 Absolute Nucleated RBC 0 Nucleated RBC % 0 Sodium Potassium Chloride Carbon Dioxide Anion Gap BUN Creatinine Est GFR ( Amer) Est GFR (Non-Af Amer) BUN/Creatinine Ratio Glucose POC Glucose (mg/dL) 141 H 119 H Calcium Vancomycin Trough 11/17/17 11/17/17 11/17/17 05:16 07:20 09:18 WBC RBC Hgb Hct MCV MCH MCHC RDW Plt Count MPV Neut % (Auto) Lymph % (Auto) [place] % (Auto) Eos % (Auto) Baso % (Auto) Absolute Neuts (auto) Absolute Lymphs (auto) Absolute Monos (auto) Absolute Eos (auto) Absolute Basos (auto) Absolute Nucleated RBC Nucleated RBC % Sodium 134 L Potassium 4.4 Chloride 103 Carbon Dioxide 26 Anion Gap 5 BUN 14 Creatinine 0.78 Est GFR ( Amer) 128.5 Est GFR (Non-Af Amer) 99.9 BUN/Creatinine Ratio 17.9 Glucose 152 H POC Glucose (mg/dL) 163 H Calcium 8.3 L Vancomycin Trough 14.9 11/17/17 11:43 WBC RBC Hgb Hct MCV MCH MCHC RDW Plt Count MPV Neut % (Auto) Lymph % (Auto) [place] % (Auto) Eos % (Auto) Baso % (Auto) Absolute Neuts (auto) Absolute Lymphs (auto) Absolute Monos (auto) Absolute Eos (auto) Absolute Basos (auto) Absolute Nucleated RBC Nucleated RBC % Sodium Potassium Chloride Carbon Dioxide Anion Gap BUN Creatinine Est GFR ( Amer) Est GFR (Non-Af Amer) BUN/Creatinine Ratio Glucose POC Glucose (mg/dL) 164 H Calcium Vancomycin Trough General: WN, WD, NAD, AO, sitting comfortably in bed. Rash of bilateral legs. MSK: RLE - dressing on right foot intact, clean, dry. Sensation intact at mid- calf. No edema proximal to dressing. Calf soft, nontender. Assessment: 1. Osteomylitis right foot. 2. Likely drug eruption rash bilateral LE. Plan: - Continue antibiotics per ID, currently on vancomycin. - Rash continuing to improve, continue treatment per hospitalist team, currently benadryl. - Plan to go to OR on Sunday with Dr. Barth for BKA. Will be NPO after midnight Sunday night with fluids. Can go sooner if recommended by Medicine.
--- NOTE | 2017-11-17 16:34 | PN ---
Subjective Date of Service: 11/17/17 Interval History: Patient was seen and examined earlier today. Reports doing well overall, denies any complaints. No fever or chills since last night. Appetite is better, trying to prepare himself mentally for upcoming surgery. Family History: Unchanged from Admission Social History: Unchanged from Admission Past Medical History: Unchanged from Admission Objective Active Medications: Acetaminophen (Tylenol Tab*) 650 mg PO Q4H PRN PRN Reason: FEVER/PAIN Last Admin: 11/17/17 03:54 Dose: 650 mg Amlodipine Besylate (Norvasc Tab*) 5 mg PO DAILY [facility] Last Admin: 11/17/17 09:22 Dose: 5 mg Aspirin (Aspirin Ec Tab*) 81 mg PO DAILY [facility] Last Admin: 11/17/17 09:22 Dose: 81 mg Bisacodyl (Dulcolax Supp*) 10 mg [place] DAILY PRN PRN Reason: CONSTIPATION Dextrose (D50w Syringe 50 Ml*) 12.5 gm IV PUSH .FOR FS < 60 - SS PRN PRN Reason: FS < 60 Diphenhydramine HCl (Benadryl Po*) 25 mg PO Q8H PRN PRN Reason: ITCHING Last Admin: 11/17/17 11:04 Dose: 25 mg Docusate Sodium (Colace Cap*) 200 mg PO BID PRN PRN Reason: CONSTIPATION Famotidine (Pepcid Tab*) 20 mg PO BID [facility] Last Admin: 11/17/17 09:22 Dose: 20 mg Heparin Sodium (Porcine) (Heparin Vial(*)) 5,000 units SUBCUT Q8HR [facility] Last Admin: 11/17/17 13:57 Dose: 5,000 units Vancomycin HCl 1,250 mg/ (Sodium Chloride) 250 mls @ 83.333 mls/hr IVPB Q12H [facility] Last Admin: 11/17/17 11:04 Dose: 83.333 mls/hr Insulin Human Lispro (Humalog*) 0 units SUBCUT AC [facility] PRN Reason: Protocol Last Admin: 11/17/17 13:57 Dose: 2 units Lactulose (Lactulose*) 30 ml PO DAILY [facility] Last Admin: 11/17/17 09:23 Dose: 30 ml Lisinopril (Prinivil Tab*) 10 mg PO DAILY [facility] Last Admin: 11/17/17 09:23 Dose: 10 mg Magnesium Oxide (Magox 400 Tab*) 400 mg PO DAILY [facility] Last Admin: 11/17/17 09:23 Dose: 400 mg Melatonin (Melatonin (Nf)) 3 mg PO BEDTIME [facility] Last Admin: 11/16/17 20:51 Dose: Not Given Ondansetron HCl (Zofran Inj*) 4 mg IV Q4H PRN PRN Reason: NAUSEA/VOMITING Oxycodone/Acetaminophen (Percocet 5/325 Tab*) 1 tab PO Q6H PRN PRN Reason: PAIN Last Admin: 11/16/17 18:59 Dose: 1 tab Pharmacy Consult (Vancomycin Per Pharmacy*) 1 note FOLLOW UP . PRN PRN Reason: PER PROTOCOL Pharmacy Profile Note (Vancomycin Trough Check) 1 note FOLLOW UP 1000 ONE Stop: 11/20/17 10:01 Polyethylene Glycol/Electrolytes (Miralax*) 17 gm PO DAILY [facility] Last Admin: 11/17/17 09:23 Dose: 17 gm Vital Signs - 8 hr 11/17/17 11/17/17 11/17/17 11:04 11:59 13:59 Temperature 98.8 F Pulse Rate 87 Respiratory 18 18 14 Rate Blood Pressure 153/69 (mmHg) O2 Sat by Pulse 94 Oximetry 11/17/17 15:37 Temperature 99.2 F Pulse Rate 96 Respiratory 18 Rate Blood Pressure 155/76 (mmHg) O2 Sat by Pulse 95 Oximetry Oxygen Devices in Use Now: None Appearance: A pleasant male, laying on his bed, appears comfortable and in NAD. Eyes: No Scleral Icterus, PERRLA Ears/Nose/Mouth/Throat: Clear Oropharnyx, Mucous Membranes Moist Neck: Trachea Midline Respiratory: Symmetrical Chest Expansion and Respiratory Effort, Clear to Auscultation Cardiovascular: NL Sounds; No Murmurs; No JVD, RRR Abdominal: NL Sounds; No Tenderness; No Distention, No Hepatosplenomegaly Extremities: No Edema, - - Right lower extremity with a clean dressing. No active bleeding or discharge noted. Sensation intact. Neurological: Alert and Oriented x 3 Nutrition: Taking PO's Result Diagrams: 11/17/17 05:16 11/17/17 05:16 Microbiology and Other Data: Microbiology 11/16/17 00:18 Urine Culture - Final Urine No Growth (<1,000 CFU/mL) 11/15/17 21:43 Aerobic Blood Culture - Preliminary Blood Venous No Growth Day 1 Anaerobic Blood Culture - Preliminary No Growth Day 1 Diagnostic Imaging: Patient Name: GAURANG EDGAR Medical Record#: [id number] Ordering Physician: Ariana Bee NP Acct.#: [id number] : 1950 Age: 67 Sex: M Location: [address] [place] [address] - MEDICAL/TELEMETRY Exam Date: 11/15/172013 ADM Status: ADM IN Order Information: CHEST PA & LAT 2 VWS Accession Number: [id number] CPT: 12800 HISTORY: Fever, sepsis COMPARISONS: July 20, 2017 VIEWS: 2: Frontal and lateral views of the chest. IMPRESSION: 1. HYPERINFLATION. 2. PULMONARY INTERSTITIAL EDEMA. 3. SMALL BILATERAL PLEURAL EFFUSIONS. Echocardiogram report reviewed from 11/12/2017. Normal left ventricular motility with good EF 55-60% Assess/Plan/Problems-Billing Assessment: Mr. Edgar is a 67 y.o male with a history of DM, HTN and osteomylitis with poor wound healing on the right foot. was transferred from [facility] for evaluation of possible sepsis, clinically improving with IV Vanco, await Right BKA on Sunday - Patient Problems (1) Osteomyelitis Current Visit: No Status: Acute Comment: - Ortho following- is scheduled for below the knee ampuation on the right on sunday id consulted- will continue vancomycin as patient's WBC's continue to improve. Patient tolerating Vanco well, given Benadryl as a precaution. - suspect rash to bilat leg and abd was related to ancef - will continue to monitor for fever (2) Fever Current Visit: Yes Status: Acute Comment: - Likely secondary to active infection, resolving (3) Rash Current Visit: Yes Status: Acute Comment: - suspect this is related to drug rash - will continue benadryl 25 mg po as needed for itching rash has improved since yestreday- pain associated with the rash is gone - does continue to have purpura rash to left lower leg continues to tolerate vancomycin (4) Diabetes Current Visit: No Status: Acute Comment: lispro SS and fingersticks (5) HTN (hypertension) Current Visit: No Status: Acute Comment: Will continue lisinopril (6) Tobacco abuse Current Visit: No Status: Acute Comment: - nicotine patch (7) DVT prophylaxis Current Visit: No Status: Acute Comment: heparin sub-q (8) Full code status Current Visit: No Status: Acute Status and Disposition: Inpatient. Anticipate discharge to SNF when medically stable.
[2017-11-17] MEDS ORDERED: diPHENhydraMINE IV* 50 MG/ML 1 ml VIAL (BENADRYL) SLOW PUSH ONE (16:59)
[2017-11-17] MEDS ORDERED: diPHENhydraMINE IV* 50 MG/ML 1 ml VIAL (BENADRYL) ONE (17:01)
[2017-11-17] MEDS: CMCS Melatonin (NF) 3 MG TAB PO SCH (20:02)
[2017-11-18] MEDS: oxyCODONE/Acetamin 5/325 MG* TAB PO PRN (04:48)
[2017-11-18] MEDS: Heparin VIAL(*) 5000 UNITS/ML VIAL (FIVE THOUSAND) SUBCUT SCH ×3 (05:02→20:54)
[2017-11-18 07:11] LABS: ABS Basophils 0.1 10^3/ul (0-0.2); ABS Eosinophils 0.1 10^3/ul (0-0.6); ABS Lymphocytes 1.6 10^3/ul (1.0-4.8); ABS Monocytes 0.9 10^3/ul (0-0.8); ABS Neutrophils 8.5 10^3/ul (1.5-7.7); ABS Nucleated RBC 0 10^3/ul; Eosinophil % 1.3 % (0-6); Hematocrit 32 % (42-52); Hemoglobin 10.3 g/dl (14.0-18.0); Mean Corpuscular HGB Conc 33 g/dl (31-36); Mean Corpuscular Hemoglobin 26 pg (27-31); Mean Corpuscular Volume 78 fL (80-94); Mean Platelet Volume 7.1 um3 (7.4-10.4); Nucleated Red Blood Cells % 0; Platelet Count 371 10^3/ul (150-450); Red Blood Count 4.05 10^6/ul (4.0-5.4); Red Cell Distribution Width 15 % (10.5-15); White Blood Count 11.3 10^3/ul (3.5-10.8)
[2017-11-18 07:29] LABS: EGFR Non-African American 94.3 (>60)
[2017-11-18] MEDS: Insulin LISPRO* 1 UNITS UNIT SUBCUT SCH ×3 (09:06→17:15)
[2017-11-18] MEDS: Polyethylene Glycol 3350* 17 GM PACKET PO SCH (09:06)
[2017-11-18] MEDS: diPHENhydraMINE PO* 25 MG PO PRN ×2 (09:07→20:54)
[2017-11-18] MEDS: amLODIPine TAB* 5 MG PO SCH (09:08)
[2017-11-18] MEDS: Lisinopril TAB* 10 MG PO SCH (09:08)
[2017-11-18] MEDS: Famotidine TAB* 20 MG PO SCH ×2 (09:08→20:53)
[2017-11-18] MEDS: Aspirin EC TAB* 81 MG TAB.EC PO SCH (09:08)
[2017-11-18] MEDS: Magnesium Oxide TAB* 400 MG PO SCH (09:08)
[2017-11-18] MEDS: Vancomycin(*) 1,250 MG in NS 0.9% 250 ML* 250 ML IVPB SCH ×2 (09:56→22:36)
[2017-11-18] MEDS ORDERED: hydrALAZINE IV* 20 MG/ML VIAL IV SLOW PU ONE (11:53)
--- NOTE | 2017-11-18 12:04 | PN ---
Progress Note - Progress Note Date of Service: 11/18/17 SOAP: Subjective: Mr. Subramanian is a 67 yo male who was admitted due signs of sepsis and rash thought secondary to right foot infection on 11/15/17. He reports he is feeling better, rash is improving, pain decreasing. Afebrile overnight. VSS with hypertension. Resting comfortably in bed. WBC count stable overnight. Objective: Vital Signs Temp 99.6 F 11/18/17 11:27 Pulse 101 11/18/17 11:27 Resp 18 11/18/17 11:27 BP 188/104 11/18/17 11:27 Pulse Ox 94 11/18/17 11:27 Intake & Output 11/17/17 11/18/17 11/18/17 18:59 06:59 18:59 Intake Total 655 450 Output Total 1300 1450 400 Balance -645 -1000 -400 Intake: IVPB 255 Vancomycin 255 Oral 400 450 Output: Urine 1300 1450 400 Other: # Bowel Movements 0 0 Estimated Stool Amount Small Laboratory Results - last 24 hr 11/17/17 11/18/17 11/18/17 17:10 06:57 06:57 WBC 11.3 H RBC 4.05 Hgb 10.3 L Hct 32 L MCV 78 L MCH 26 L MCHC 33 RDW 15 Plt Count 371 MPV 7.1 L Neut % (Auto) 75.1 Lymph % (Auto) 14.0 L [place] % (Auto) 8.3 H Eos % (Auto) 1.3 Baso % (Auto) 1.3 Absolute Neuts (auto) 8.5 H Absolute Lymphs (auto) 1.6 Absolute Monos (auto) 0.9 H Absolute Eos (auto) 0.1 Absolute Basos (auto) 0.1 Absolute Nucleated RBC 0 Nucleated RBC % 0 Sodium 135 L Potassium 4.1 Chloride 102 Carbon Dioxide 25 Anion Gap 8 BUN 13 Creatinine 0.82 Est GFR ( Amer) 121.3 Est GFR (Non-Af Amer) 94.3 BUN/Creatinine Ratio 15.9 Glucose 143 H POC Glucose (mg/dL) 150 H Calcium 8.6 11/18/17 11/18/17 07:30 11:41 WBC RBC Hgb Hct MCV MCH MCHC RDW Plt Count MPV Neut % (Auto) Lymph % (Auto) [place] % (Auto) Eos % (Auto) Baso % (Auto) Absolute Neuts (auto) Absolute Lymphs (auto) Absolute Monos (auto) Absolute Eos (auto) Absolute Basos (auto) Absolute Nucleated RBC Nucleated RBC % Sodium Potassium Chloride Carbon Dioxide Anion Gap BUN Creatinine Est GFR ( Amer) Est GFR (Non-Af Amer) BUN/Creatinine Ratio Glucose POC Glucose (mg/dL) 175 H 144 H Calcium General: WN, WD, NAD, AO, sitting comfortably in bed. Rash of bilateral legs. Voice hoarse. MSK: RLE - dressing on right foot intact, clean, dry. Sensation intact at mid- calf. No edema proximal to dressing. Calf soft, nontender. Assessment: 1. Osteomylitis right foot. 2. Likely drug eruption rash bilateral LE. Plan: - Continue antibiotics per ID, currently on vancomycin. - Rash continuing to improve, continue treatment per hospitalist team, currently benadryl. - Pharyngitis with cough - follow up on CXR, throat culture. Monitor for additional symptoms/fever, if develops will likely delay surgery. - Spoke with Dr. Barth today, will plan for OR tomorrow pending workup by Medicine. Currently to be NPO after midnight Sunday night with fluids.
--- NOTE | 2017-11-18 12:09 | PN ---
Subjective Date of Service: 11/18/17 Interval History: Patient seen and examined at bedside. Reports not feeling very good today. Has been coughing and c/o sore throat causing him to have no appetite. Denies fever or chills. No chest pain, wheezing or SOB. He thinks he had his flu shot last July. Family History: Unchanged from Admission Social History: Unchanged from Admission Past Medical History: Unchanged from Admission Objective Active Medications: Acetaminophen (Tylenol Tab*) 650 mg PO Q4H PRN PRN Reason: FEVER/PAIN Last Admin: 11/17/17 20:02 Dose: 650 mg Amlodipine Besylate (Norvasc Tab*) 5 mg PO DAILY [facility] Last Admin: 11/18/17 09:08 Dose: 5 mg Aspirin (Aspirin Ec Tab*) 81 mg PO DAILY [facility] Last Admin: 11/18/17 09:08 Dose: 81 mg Benzonatate (Tessalon Cap*) 200 mg PO TID PRN PRN Reason: cough Bisacodyl (Dulcolax Supp*) 10 mg [place] DAILY PRN PRN Reason: CONSTIPATION Dextrose (D50w Syringe 50 Ml*) 12.5 gm IV PUSH .FOR FS < 60 - SS PRN PRN Reason: FS < 60 Diphenhydramine HCl (Benadryl Po*) 25 mg PO Q8H PRN PRN Reason: ITCHING Last Admin: 11/18/17 09:07 Dose: 25 mg Docusate Sodium (Colace Cap*) 200 mg PO BID PRN PRN Reason: CONSTIPATION Famotidine (Pepcid Tab*) 20 mg PO BID [facility] Last Admin: 11/18/17 09:08 Dose: 20 mg Guaifenesin (Mucinex*) 600 mg PO BID [facility] Heparin Sodium (Porcine) (Heparin Vial(*)) 5,000 units SUBCUT Q8HR [facility] Stop: 11/18/17 23:59 Last Admin: 11/18/17 05:02 Dose: 5,000 units Vancomycin HCl 1,250 mg/ (Sodium Chloride) 250 mls @ 83.333 mls/hr IVPB Q12H [facility] Last Admin: 11/18/17 09:56 Dose: 83.333 mls/hr Lactated Ringer's (Lactated Ringers 1000 Ml Bag*) 1,000 mls @ 125 mls/hr IV PER RATE [facility] Stop: 11/19/17 13:59 Insulin Human Lispro (Humalog*) 0 units SUBCUT AC [facility] PRN Reason: Protocol Last Admin: 11/18/17 09:06 Dose: 2 units Lactulose (Lactulose*) 30 ml PO DAILY [facility] Last Admin: 11/18/17 09:06 Dose: 30 ml Lisinopril (Prinivil Tab*) 10 mg PO DAILY [facility] Last Admin: 11/18/17 09:08 Dose: 10 mg Magnesium Oxide (Magox 400 Tab*) 400 mg PO DAILY [facility] Last Admin: 11/18/17 09:08 Dose: 400 mg Melatonin (Melatonin (Nf)) 3 mg PO BEDTIME [facility] Last Admin: 11/17/17 20:02 Dose: 3 mg Morphine Sulfate (Morphine Vial*) 2 mg IV Q4H PRN PRN Reason: PAIN Ondansetron HCl (Zofran Inj*) 4 mg IV Q4H PRN PRN Reason: NAUSEA/VOMITING Oxycodone/Acetaminophen (Percocet 5/325 Tab*) 1 tab PO Q6H PRN PRN Reason: PAIN Last Admin: 11/18/17 04:48 Dose: 1 tab Pharmacy Consult (Vancomycin Per Pharmacy*) 1 note FOLLOW UP . PRN PRN Reason: PER PROTOCOL Pharmacy Profile Note (Vancomycin Trough Check) 1 note FOLLOW UP 1000 ONE Stop: 11/20/17 10:01 Polyethylene Glycol/Electrolytes (Miralax*) 17 gm PO DAILY [facility] Last Admin: 11/18/17 09:06 Dose: 17 gm Throat Lozenges (Chloraseptic Bruno*) 1 bruno PO Q2H PRN PRN Reason: SORE THROAT Vital Signs - 8 hr 11/18/17 11/18/17 11/18/17 04:48 06:50 07:38 Temperature Pulse Rate Respiratory 20 20 20 Rate Blood Pressure (mmHg) O2 Sat by Pulse Oximetry 11/18/17 11/18/17 11/18/17 07:41 09:07 10:45 Temperature 98.2 F Pulse Rate 85 Respiratory 16 20 17 Rate Blood Pressure 153/85 (mmHg) O2 Sat by Pulse 97 Oximetry 11/18/17 11:27 Temperature 99.6 F Pulse Rate 101 Respiratory 18 Rate Blood Pressure 188/104 (mmHg) O2 Sat by Pulse 94 Oximetry Oxygen Devices in Use Now: None Appearance: Appears tired, but resting in bed and in NAD Eyes: No Scleral Icterus, PERRLA Ears/Nose/Mouth/Throat: Clear Oropharnyx - Exam revealed moderate pharyngeal erythema, but no exudate noted. Throat cultures obtained., Mucous Membranes Moist Neck: NL Appearance and Movements; NL JVP, Trachea Midline Respiratory: Symmetrical Chest Expansion and Respiratory Effort, - - Decreased breath sounds bilaterally. Mild bibasilar rhonchi noted, no wheezes or rales. Cardiovascular: NL Sounds; No Murmurs; No JVD, RRR Abdominal: NL Sounds; No Tenderness; No Distention Lymphatic: No Cervical Adenopathy Extremities: No Edema, - - RLE with intact dressing around distal end. Exam unchanged from yesterday. Skin: - - Minimal residual rash noted, blanchable. Neurological: Alert and Oriented x 3 Nutrition: Taking PO's Result Diagrams: 11/18/17 06:57 11/18/17 06:57 Additional Lab and Data: . Microbiology and Other Data: . Diagnostic Imaging: Portable CXR pending Assess/Plan/Problems-Billing Assessment: Mr. Subramanian is a 67 y.o male with a history of DM, HTN and osteomylitis with poor wound healing on the right foot. was transferred from [facility] for evaluation of possible sepsis, clinically improving with IV Vanco, await Right BKA on Sunday. Now with URI symptoms. - Patient Problems (1) Osteomyelitis Current Visit: No Status: Acute Comment: - Ortho following- is scheduled for below the knee ampuation on the right on sunday id consulted- will continue vancomycin as patient's WBC's continue to improve. Patient tolerating Vanco well, given Benadryl as a precaution. - suspect rash to bilat leg and abd was related to ancef - Low grade fever this AM likely secondary to URI symptoms (2) Fever Current Visit: Yes Status: Acute Comment: - Likely secondary to URI. - Patient with productive cough, sore throat and low grade fever this AM - WBC unchanged, stable - Portable CXR, rapid flu A/B and throat Cx pending (3) Rash Current Visit: Yes Status: Acute Comment: - suspect this is related to drug rash - will continue benadryl 25 mg po as needed for itching rash has improved since yestreday- pain associated with the rash is gone - does continue to have purpura rash to left lower leg continues to tolerate vancomycin (4) Diabetes Current Visit: No Status: Acute Comment: lispro SS and fingersticks (5) HTN (hypertension) Current Visit: No Status: Acute Comment: - Will continue lisinopril - Isolated hypertension this AM after multiple bouts of cough, Hydralazine 5mg once ordered (6) Tobacco abuse Current Visit: No Status: Acute Comment: - nicotine patch (7) Upper respiratory infection Current Visit: Yes Status: Acute Comment: - Likely viral, will await throat Cx and rapid flu A/B - Portable CXR pending - Mucinex and Choloraseptic for symptomatic relieve - Discussed with ortho, will re-evaluate in AM prior to OR (8) DVT prophylaxis Current Visit: No Status: Acute Comment: heparin sub-q (9) Full code status Current Visit: No Status: Acute Status and Disposition: Inpatient. Anticipate discharge to SNF when medically stable.
[2017-11-18] MEDS: Benzonatate CAP* 100 MG PO PRN (12:21)
[2017-11-18] MEDS: Benzocaine/Menthol LOZ* 1 LOZENGE PO PRN ×3 (12:21→17:14)
[2017-11-18] MEDS: guaiFENesin ER TAB 600 MG PO SCH ×2 (12:21→20:53)
--- NOTE | 2017-11-18 13:27 | RAD ---
INDICATION: Productive cough. COMPARISON: Comparison is made with a prior study from November 15, 2017. TECHNIQUE: A portable view of the chest was obtained. FINDINGS: Cardiac and mediastinal contours appear to be within normal limits. There is diffuse prominence of the interstitial markings without focal infiltrate. No pleural effusion is appreciated. IMPRESSION: FINDINGS SUGGESTIVE OF PULMONARY EDEMA, UNCHANGED.
[2017-11-18] MEDS: Acetaminophen TAB* 325 MG PO PRN ×2 (14:39→20:53)
[2017-11-18] MEDS ORDERED: Azithromycin IV(*) 500 MG in D5W 250 ML BAG* 250 ML IVPB ONE (15:30)
[2017-11-18] MEDS ORDERED: Azithromycin IV(*) 500 MG in NS 0.9% 250 ML* 250 ML IVPB ONE (15:41)
[2017-11-18] MEDS ORDERED: Furosemide IV* 10 MG/ML 2 ML VIAL (20 MG) IV SLOW PU ONE (15:42)
[2017-11-18] MEDS: CMCS Melatonin (NF) 3 MG TAB PO SCH (20:53)
[2017-11-18] MEDS ORDERED: diPHENhydraMINE PO* 25 MG PO ONE (22:21)
[2017-11-19 06:18] LABS: ABS Basophils 0.1 10^3/ul (0-0.2); ABS Eosinophils 0.1 10^3/ul (0-0.6); ABS Lymphocytes 1.5 10^3/ul (1.0-4.8); ABS Monocytes 1.1 10^3/ul (0-0.8); ABS Nucleated RBC 0 10^3/ul; Eosinophil % 1.1 % (0-6); Hematocrit 31 % (42-52); Hemoglobin 10.2 g/dl (14.0-18.0); Lymphocyte % 14.2 % (25-47); Mean Corpuscular HGB Conc 33 g/dl (31-36); Mean Corpuscular Hemoglobin 26 pg (27-31); Mean Corpuscular Volume 78 fL (80-94); Mean Platelet Volume 7.5 um3 (7.4-10.4); Nucleated Red Blood Cells % 0.1; Platelet Count 339 10^3/ul (150-450); Red Blood Count 3.94 10^6/ul (4.0-5.4); Red Cell Distribution Width 15 % (10.5-15); White Blood Count 10.8 10^3/ul (3.5-10.8)
[2017-11-19 06:34] LABS: EGFR Non-African American 86.9 (>60)
[2017-11-19] MEDS: Famotidine TAB* 20 MG PO SCH ×2 (08:44→22:07)
[2017-11-19] MEDS: Lisinopril TAB* 10 MG PO SCH (08:44)
[2017-11-19] MEDS: Magnesium Oxide TAB* 400 MG PO SCH (08:44)
[2017-11-19] MEDS: guaiFENesin ER TAB 600 MG PO SCH ×2 (08:44→22:07)
[2017-11-19] MEDS: amLODIPine TAB* 5 MG PO SCH (08:45)
[2017-11-19] MEDS: Polyethylene Glycol 3350* 17 GM PACKET PO SCH (08:45)
[2017-11-19] MEDS: Aspirin EC TAB* 81 MG TAB.EC PO SCH (08:45)
[2017-11-19] MEDS: Insulin LISPRO* 1 UNITS UNIT SUBCUT SCH ×3 (09:18→18:31)
[2017-11-19] MEDS: Acetaminophen TAB* 325 MG PO PRN ×2 (10:50→19:38)
[2017-11-19] MEDS: Vancomycin(*) 1,250 MG in NS 0.9% 250 ML* 250 ML IVPB SCH ×2 (10:51→22:28)
[2017-11-19] MEDS: Benzocaine/Menthol LOZ* 1 LOZENGE PO PRN ×4 (10:51→22:28)
--- NOTE | 2017-11-19 15:11 | PN ---
Progress Note - Progress Note Date of Service: 11/19/17 SOAP: Subjective: []Patient seen at bedside. He feels feverish. Denies CP, SOB, nausea. His right BKA was cancelled today due to need for further medical optimization. Due to anger over cancellation of surgery patient states he was kicking the end of the bed with his infected foot. Objective: [] Vital Signs Temp 99.2 F 11/19/17 12:20 Pulse 96 11/19/17 12:20 Resp 18 11/19/17 12:20 BP 140/79 11/19/17 12:20 Pulse Ox 94 11/19/17 12:20 Intake & Output 11/18/17 11/19/17 11/19/17 18:59 06:59 18:59 Intake Total 620 485 663 Output Total 1660 800 Balance -1040 -315 663 Intake: IV Fluids 100 264 Vancomycin 100 264 IVPB 285 159 Vancomycin 285 159 Oral 620 100 240 Output: Urine 1660 800 Other: # Bowel Movements 0 0 Laboratory Last Values WBC 10.8 10^3/ul (3.5-10.8) 11/19/17 05:57 RBC 3.94 10^6/ul (4.0-5.4) L 11/19/17 05:57 Hgb 10.2 g/dl (14.0-18.0) L 11/19/17 05:57 Hct 31 % (42-52) L 11/19/17 05:57 MCV 78 fL (80-94) L 11/19/17 05:57 MCH 26 pg (27-31) L 11/19/17 05:57 MCHC 33 g/dl (31-36) 11/19/17 05:57 RDW 15 % (10.5-15) 11/19/17 05:57 Plt Count 339 10^3/ul (150-450) 11/19/17 05:57 MPV 7.5 um3 (7.4-10.4) 11/19/17 05:57 Neut % (Auto) 73.6 % (38-83) 11/19/17 05:57 Lymph % (Auto) 14.2 % (25-47) L 11/19/17 05:57 [place] % (Auto) 10.2 % (0-7) H 11/19/17 05:57 Eos % (Auto) 1.1 % (0-6) 11/19/17 05:57 Baso % (Auto) 0.9 % (0-2) 11/19/17 05:57 Absolute Neuts (auto) 8.0 10^3/ul (1.5-7.7) H 11/19/17 05:57 Absolute Lymphs (auto) 1.5 10^3/ul (1.0-4.8) 11/19/17 05:57 Absolute Monos (auto) 1.1 10^3/ul (0-0.8) H 11/19/17 05:57 Absolute Eos (auto) 0.1 10^3/ul (0-0.6) 11/19/17 05:57 Absolute Basos (auto) 0.1 10^3/ul (0-0.2) 11/19/17 05:57 Absolute Nucleated RBC 0 10^3/ul 11/19/17 05:57 Nucleated RBC % 0.1 11/19/17 05:57 ESR 99 mm/Hr (0-40) H 11/15/17 21:43 INR (Anticoag Therapy) 1.02 (0.77-1.02) 11/16/17 07:11 Sodium 133 mmol/L (139-145) L 11/19/17 05:57 Potassium 3.9 mmol/L (3.5-5.0) 11/19/17 05:57 Chloride 99 mmol/L (101-111) L 11/19/17 05:57 Carbon Dioxide 25 mmol/L (22-32) 11/19/17 05:57 Anion Gap 9 mmol/L (2-11) 11/19/17 05:57 BUN 12 mg/dL (6-24) 11/19/17 05:57 Creatinine 0.88 mg/dL (0.67-1.17) 11/19/17 05:57 Est GFR ( Amer) 111.8 (>60) 11/19/17 05:57 Est GFR (Non-Af Amer) 86.9 (>60) 11/19/17 05:57 BUN/Creatinine Ratio 13.6 (8-20) 11/19/17 05:57 Glucose 137 mg/dL (70-100) H 05/07/18 05:57 POC Glucose (mg/dL) 196 mg/dL (70-100) H 11/19/17 11:44 POC Glucose Confirm 140 mg/dL (70-100) H 11/19/17 08:01 Lactic Acid 1.1 mmol/L (0.5-2.0) 11/15/17 21:43 Calcium 8.3 mg/dL (8.6-10.3) L 11/19/17 05:57 C-Reactive Protein 121.73 mg/L (< 5.00) H 11/16/17 07:11 B-Natriuretic Peptide 327 pg/mL (-100) H 11/18/17 06:57 Urine Color Yellow 11/16/17 00:18 Urine Appearance Clear 11/16/17 00:18 Urine pH 6.0 (5-9) 11/16/17 00:18 Ur Specific [place] 1.013 (1.010-1.030) 11/16/17 00:18 Urine Protein 2+(100 mg/dl) (Negative) A 11/16/17 00:18 Urine Ketones Negative (Negative) 11/16/17 00:18 Urine Blood 3+ (Negative) A 11/16/17 00:18 Urine Nitrate Negative (Negative) 11/16/17 00:18 Urine Bilirubin Negative (Negative) 11/16/17 00:18 Urine Urobilinogen Negative (Negative) 11/16/17 00:18 Ur Leukocyte Esterase Trace (Negative) A 11/16/17 00:18 Urine WBC (Auto) 2+(11-20/hpf) (Absent) A 11/16/17 00:18 Urine RBC (Auto) 3+(>10/hpf) (Absent) A 11/16/17 00:18 Urine Bacteria Absent (Absent) 11/16/17 00:18 Urine Glucose Negative (Negative) 11/16/17 00:18 Vancomycin Trough 14.9 mcg/mL 11/17/17 09:18 Influenza A (Rapid) Negative (Negative) 11/18/17 12:44 Influenza B (Rapid) Negative (Negative) 11/18/17 12:44 General: NAD MSK: RLE - dressing on right foot changed. Ulceration at distal aspect without discharge or bleeding, minimal erythema of stump, no edema. Calf soft, nontender. Assessment: 1. Osteomylitis right foot. Plan: []Continue Vanco Azithromycin for suspected URI Surgery to be rescheduled when medically optimized
--- NOTE | 2017-11-19 19:05 | PN ---
Subjective Date of Service: 11/19/17 Interval History: Patient was seen and examined earlier today prior to anticipated BKA. Patient reports persistent sore throat, odynophagia and productive cough, felt feverish last night. Also notes URI sx with nasal congestion and post-nasal drip. He understands the possibility or postponing surgery until medically stable. Denies chest pain or SOB. Family History: Unchanged from Admission Social History: Unchanged from Admission Past Medical History: Unchanged from Admission Objective Active Medications: Acetaminophen (Tylenol Tab*) 650 mg PO Q4H PRN PRN Reason: FEVER/PAIN Last Admin: 11/19/17 10:50 Dose: 650 mg Amlodipine Besylate (Norvasc Tab*) 5 mg PO DAILY [facility] Last Admin: 11/19/17 08:45 Dose: 5 mg Aspirin (Aspirin Ec Tab*) 81 mg PO DAILY [facility] Last Admin: 11/19/17 08:45 Dose: 81 mg Benzonatate (Tessalon Cap*) 200 mg PO TID PRN PRN Reason: cough Last Admin: 11/18/17 12:21 Dose: 200 mg Bisacodyl (Dulcolax Supp*) 10 mg [place] DAILY PRN PRN Reason: CONSTIPATION Dextrose (D50w Syringe 50 Ml*) 12.5 gm IV PUSH .FOR FS < 60 - SS PRN PRN Reason: FS < 60 Diphenhydramine HCl (Benadryl Po*) 25 mg PO Q8H PRN PRN Reason: ITCHING Last Admin: 11/18/17 20:54 Dose: 25 mg Docusate Sodium (Colace Cap*) 200 mg PO BID PRN PRN Reason: CONSTIPATION Famotidine (Pepcid Tab*) 20 mg PO BID [facility] Last Admin: 11/19/17 08:44 Dose: 20 mg Guaifenesin (Mucinex*) 600 mg PO BID [facility] Last Admin: 11/19/17 08:44 Dose: 600 mg Vancomycin HCl 1,250 mg/ (Sodium Chloride) 250 mls @ 62.5 mls/hr IVPB Q12H [facility] Last Admin: 11/19/17 10:51 Dose: 62.5 mls/hr Insulin Human Lispro (Humalog*) 0 units SUBCUT AC [facility] PRN Reason: Protocol Last Admin: 11/19/17 18:31 Dose: 2 units Lactulose (Lactulose*) 30 ml PO DAILY [facility] Last Admin: 11/19/17 08:49 Dose: Not Given Lisinopril (Prinivil Tab*) 10 mg PO DAILY [facility] Last Admin: 11/19/17 08:44 Dose: 10 mg Magnesium Oxide (Magox 400 Tab*) 400 mg PO DAILY [facility] Last Admin: 11/19/17 08:44 Dose: 400 mg Melatonin (Melatonin (Nf)) 3 mg PO BEDTIME [facility] Last Admin: 11/18/17 20:53 Dose: 3 mg Metoprolol Tartrate (Lopressor Tab*) 25 mg PO BID [facility] Morphine Sulfate (Morphine Vial*) 2 mg IV Q4H PRN PRN Reason: PAIN Ondansetron HCl (Zofran Inj*) 4 mg IV Q4H PRN PRN Reason: NAUSEA/VOMITING Oxycodone/Acetaminophen (Percocet 5/325 Tab*) 1 tab PO Q6H PRN PRN Reason: PAIN Last Admin: 11/18/17 04:48 Dose: 1 tab Pharmacy Consult (Vancomycin Per Pharmacy*) 1 note FOLLOW UP . PRN PRN Reason: PER PROTOCOL Pharmacy Profile Note (Vancomycin Trough Check) 1 note FOLLOW UP 1000 ONE Stop: 11/20/17 10:01 Polyethylene Glycol/Electrolytes (Miralax*) 17 gm PO DAILY [facility] Last Admin: 11/19/17 08:45 Dose: 17 gm Throat Lozenges (Chloraseptic Bruno*) 1 bruno PO Q2H PRN PRN Reason: SORE THROAT Last Admin: 11/19/17 18:31 Dose: 1 bruno Vital Signs - 8 hr 11/19/17 11/19/17 11/19/17 12:20 15:30 17:07 Temperature 99.2 F 98.8 F 98.9 F Pulse Rate 96 79 91 Respiratory 18 22 22 Rate Blood Pressure 140/79 138/48 132/70 (mmHg) O2 Sat by Pulse 94 94 95 Oximetry Oxygen Devices in Use Now: None Appearance: Appears tired, but comfortable in bed and in NAD. Eyes: No Scleral Icterus, PERRLA Ears/Nose/Mouth/Throat: Mucous Membranes Moist, - - Oropharynex with minimal erythema noted, no exudate. Neck: NL Appearance and Movements; NL JVP, Trachea Midline Respiratory: Symmetrical Chest Expansion and Respiratory Effort, Clear to Auscultation Cardiovascular: NL Sounds; No Murmurs; No JVD, RRR Abdominal: NL Sounds; No Tenderness; No Distention Extremities: No Edema Neurological: Alert and Oriented x 3, NL Sensation Lines/Tubes/Other Access: Clean, Dry and Intact Peripheral IV Result Diagrams: 11/19/17 05:57 11/19/17 05:57 Additional Lab and Data: . Microbiology and Other Data: . Diagnostic Imaging: Patient Name: GAURANG EDGAR Medical Record#: [id number] Ordering Physician: Austin SIFUENTES Acct.#: [id number] : 1950 Age: 67 Sex: M Location: [address] [place] [address] MEDICAL/TELEMETRY Exam Date: 11/18/17 1159 ADM Status: ADM IN Order Information: CHEST AP PORTABLE Accession Number: [id number] CPT: 98270 INDICATION: Productive cough. COMPARISON: Comparison is made with a prior study from November 15, 2017. TECHNIQUE: A portable view of the chest was obtained. FINDINGS: Cardiac and mediastinal contours appear to be within normal limits. There is diffuse prominence of the interstitial markings without focal infiltrate. No pleural effusion is appreciated. IMPRESSION: FINDINGS SUGGESTIVE OF PULMONARY EDEMA, UNCHANGED. EKG Data: EKG INTERPRETATION ECG Report Patient Name GAURANG EDGAR Birthdate 1950 Sex M Order Number [id number] Date of ECG 11/19/2017 09:20:54 Interpretation Poor baseline. Sinus rhythm.normal P axis, V-rate 60- 99 RBBB and LEFT AXIS DEVIATION. - ABNORMAL ECG- NO SIGNIFICANT CHANGES SINCE THE PREVIOUS RECORD OF 12 Lead 07/20/2017 19:13:20 Electronically signed on 11/19/2017 at 09:33 by Cristian Beckman MD Assess/Plan/Problems-Billing Assessment: Mr. Edgar is a 67 y.o male with a history of DM, HTN and osteomylitis with poor wound healing on the right foot. was transferred from [facility] for evaluation of possible sepsis, clinically improving with IV Vanco, await Right BKA on Sunday. Now with URI symptoms. - Patient Problems (1) Sepsis Current Visit: Yes Status: Acute Comment: - Patient meets criteria for sepsis without septic shock. - Will continue his Vanco - He has a score of 4.9% for cardiac risk on ACS risk calculator, making him a high risk for surgery - Will postpone procedure until medically optimized. - Will obtain a cardiac consult with Dr. Alvarez for pre-op clearance. (2) Osteomyelitis Current Visit: No Status: Acute Comment: - Ortho following- isurgery on hold- will continue vancomycin as patient's WBC' s continue to improve. Patient tolerating Vanco well, given Benadryl as a precaution. - suspect rash to bilat leg and abd was related to ancef - Low grade fever this AM likely secondary to URI symptoms (3) Fever Current Visit: Yes Status: Acute Comment: - Meet criteria for sepsis with accompanied tachycardia - Patient with productive cough, sore throat and low grade fever this AM - WBC unchanged, stable - Portable CXR, rapid flu A/B and throat Cx pending (4) Rash Current Visit: Yes Status: Acute Comment: - suspect this is related to drug rash - will continue benadryl 25 mg po as needed for itching rash has improved since yestreday- pain associated with the rash is gone - does continue to have purpura rash to left lower leg continues to tolerate vancomycin (5) Diabetes Current Visit: No Status: Acute Comment: lispro SS and fingersticks (6) HTN (hypertension) Current Visit: No Status: Acute Comment: - Will continue lisinopril - Isolated hypertension this AM after multiple bouts of cough, Hydralazine 5mg once ordered (7) Tobacco abuse Current Visit: No Status: Acute Comment: - nicotine patch (8) Upper respiratory infection Current Visit: Yes Status: Acute Comment: - Likely viral, will await throat Cx and rapid flu A/B - Portable CXR with congestion and pumonary edema - Mucinex and Choloraseptic for symptomatic relieve - Lasix one dose 20mg given (9) DVT prophylaxis Current Visit: No Status: Acute Comment: heparin sub-q (10) Full code status Current Visit: No Status: Acute (11) Sepsis Current Visit: Yes Status: Acute Status and Disposition: Inpatient. Anticipate discharge to SNF when medically stable.
[2017-11-19] MEDS: CMCS Melatonin (NF) 3 MG TAB PO SCH (22:07)
[2017-11-19] MEDS: Metoprolol Tartrate TAB* 25 MG PO SCH (22:07)
[2017-11-19] MEDS: diPHENhydraMINE PO* 25 MG PO PRN (22:28)
[2017-11-20] MEDS: Benzocaine/Menthol LOZ* 1 LOZENGE PO PRN ×6 (01:56→22:04)
[2017-11-20] MEDS ORDERED: Furosemide IV* 10 MG/ML VIAL (40 MG) IV SLOW PU ONE (02:22)
[2017-11-20] MEDS: oxyCODONE/Acetamin 5/325 MG* TAB PO PRN (02:45)
[2017-11-20] MEDS: Benzonatate CAP* 100 MG PO PRN ×2 (02:45→12:09)
--- NOTE | 2017-11-20 03:37 | CONS ---
CARDIOLOGY CONSULTATION REPORT: DATE OF CONSULT: 11/19/17. INDICATION FOR CONSULTATION: Preop for ceuzk-nyf-voak amputation, abnormal EKG. HISTORY OF PRESENT ILLNESS: The patient is a 67-year-old gentleman with multiple medical problems and poor social network who was admitted to the hospital for ccrca-[id number] amputation. The patient has a long history of poor circulation to his legs. He underwent a aiasd-ueo-obei amputation already. The patient is scheduled for an taisj-rmc-zhmv amputation tomorrow. The patient has multiple risks including his poorly controlled diabetes, hypertension, abnormal EKG. In the past, Dr. Gaines had seen the patient for consultation for his poor circulation in his legs. He had offered the patient a catheterization and potential revascularization of his lower extremity. The patient flatly refused any IV contrast dye and thus the procedure was not pursued. The patient has no documented history of coronary artery disease, no history of angina, no palpitations, no lightheadedness, dizziness or syncope. PAST MEDICAL HISTORY: Significant for right foot osteomyelitis, diabetes, hypertension, Staph bacteremia. PAST SURGICAL HISTORY: Elbow amputation for nerve damage in 1969, toe amputation, metatarsal amputation. OUTPATIENT MEDICATIONS: 1. Aspirin 81 mg a day. 2. Colace 200 mg as needed. 3. Pepcid 20 mg b.i.d. 4. Lispro sliding scale. 5. Lactulose 30 mg a day. 6. Lisinopril 10 mg a day. 7. Magnesium 400 mg a day. 8. Vancomycin 1 g q.12 hours. ALLERGIES: IV CONTRAST. SOCIAL HISTORY: He is a previous smoker. He quit two weeks ago. He was a previous two-pack a day smoker. Denies alcohol use. He is currently . He is on disability. PHYSICAL EXAM: On physical exam, height is 5 feet 9 inches, weight is 197 pounds, temperature 99.2, heart rate is 79, blood pressure 140/79, respiratory rate is 18. Sclerae anicteric. Oropharynx is pink without erythema. Carotids are 2+ without bruits. JVD is normal. Thyroid is normal. Cardiac Exam: S1, S2 without any murmurs, rubs or gallops. Lungs are Clear to auscultation bilaterally. There is no dullness to percussion. Abdomen is soft, nontender, nondistended with normoactive bowel sounds. Extremities show minimal edema. He has poor pulses throughout. The patient is awake, alert, and oriented. DIAGNOSTIC STUDIES/LAB DATA: White count 8.9, hemoglobin 10, hematocrit 31, platelet count 331. Chemistries within normal limits. BUN 12, creatinine 0.88. BNP is 327. The patient had a transesophageal echocardiogram done by myself on 11/12/17, which demonstrated normal LV size and systolic function, ejection fraction of 55 %. No significant valvular abnormality. There was mild tricuspid regurgitation. The patient's EKG today demonstrates normal sinus rhythm, right bundle-branch block, unchanged from previous EKGs. IMPRESSION: This is a 67-year-old gentleman with a history of diabetes, hypertension, abnormal EKG, who is ____ scheduled for mlbyi-emq-mbva amputation. The patient is at high risk for cardiovascular complications given his age, abnormal EKG, and poorly controlled diabetes. The patient, in the past, has flatly denied any IV contrast for any imaging or diagnostic procedures. Because of this, I do not think there is any point in having the patient undergo a stress test. If the stress test does show high risk features to it, the patient would still be at high risk for the procedure and the patient would not want to proceed with cardiac catheterization for more definitive evaluation. The patient will continue at an aspirin a day. The patient will be started on low-dose beta-blockers. All his other medications will remain the same. The patient's high-risk status was discussed with the patient, and the patient is still interested in proceeding with the surgery. This case was discussed with Mr. Avila, physician's assistant manager quality management. [id number]/[facility] #: [id number] NICOLE
--- NOTE | 2017-11-20 08:37 | RAD ---
INDICATION: Sepsis COMPARISON: Chest x-ray dated November 18, 2017 TECHNIQUE: Single AP portable view of the chest was obtained. FINDINGS: Image quality is compromised due to the relative inferiority of a portable chest x-ray. The heart and mediastinum exhibit normal size and contour. There are patchy densities overlying the bilateral lungs. The pulmonary vasculature is mildly engorged and indistinct. Linear densities extending from the right lateral pleura are consistent with "Alberta B lines". Visualized bones are normal for the patient's age. IMPRESSION: In the correct clinical setting radiographic findings are consistent with pulmonary edema/vascular congestion.
[2017-11-20] MEDS: Insulin LISPRO* 1 UNITS UNIT SUBCUT SCH ×3 (09:49→17:42)
[2017-11-20] MEDS: Polyethylene Glycol 3350* 17 GM PACKET PO SCH (09:49)
[2017-11-20] MEDS: Lisinopril TAB* 10 MG PO SCH (09:50)
[2017-11-20] MEDS: amLODIPine TAB* 5 MG PO SCH (09:50)
[2017-11-20] MEDS: Metoprolol Tartrate TAB* 25 MG PO SCH ×2 (09:50→21:22)
[2017-11-20] MEDS: Magnesium Oxide TAB* 400 MG PO SCH (09:50)
[2017-11-20] MEDS: Famotidine TAB* 20 MG PO SCH ×2 (09:50→21:22)
[2017-11-20] MEDS: Aspirin EC TAB* 81 MG TAB.EC PO SCH (09:50)
[2017-11-20] MEDS: guaiFENesin ER TAB 600 MG PO SCH ×2 (09:50→21:22)
[2017-11-20] MEDS ORDERED: Vancomycin Trough Check NOTE FOLLOW UP ONE (10:00)
[2017-11-20] MEDS: Vancomycin(*) 1,250 MG in NS 0.9% 250 ML* 250 ML IVPB SCH (10:32)
[2017-11-20] MEDS: Furosemide IV* 10 MG/ML VIAL (40 MG) IV SCH (13:42)
[2017-11-20] MEDS ORDERED: cefTRIAXone(*) 1 GM in NS 0.9% 50 ML* 50 ML IVPB SCH (14:00)
--- NOTE | 2017-11-20 14:54 | PN ---
Progress Note - Progress Note Date of Service: 11/20/17 SOAP: Subjective: []Patient seen at bedside, he denies RLE pain, CP, SOB. Confirms he feels he " has a cold" with cough, nasal congestion. Has a rash of bl LE that has been present x 1 month, considered to be related to ancef. Objective: []General: NAD MSK: RLE - dressing on right falling off, dressing changed. Ulceration at distal aspect without discharge or bleeding, minimal erythema of stump, no edema. Calf soft, nontender. Assessment: 1. Osteomylitis right foot. Plan: []Continue Vanco Azithromycin for suspected URI No further cardiac optimization needed. Still receiving URI treatment. Surgery to be rescheduled when medically optimized, likely Vital Signs Temp 99.1 F 11/20/17 12:20 Pulse 85 11/20/17 12:20 Resp 20 11/20/17 12:20 BP 149/98 11/20/17 12:20 Pulse Ox 95 11/20/17 12:20 Intake & Output 11/19/17 11/20/17 11/20/17 18:59 06:59 18:59 Intake Total 783 420 120 Output Total 400 550 Balance 383 -130 120 Intake: IV Fluids 354 Vancomycin 354 IVPB 189 270 Normal Saline 30 Vancomycin 159 270 Oral 240 150 120 Output: Urine 400 550 Other: Estimated Void Small # Bowel Movements 0 # Voids 1
[2017-11-20] MEDS: Vancomycin(*) 1,000 MG in NS 0.9% 250 ML* 250 ML IVPB SCH (17:42)
--- NOTE | 2017-11-20 18:06 | PN ---
Subjective Date of Service: 11/20/17 Interval History: Patient seen and examined earlier today. Still feels "down with a bad cold", c/ o sore throat, cough and low grade fever. Denies chest pain, dyspnea at rest or wheezing. Events from last night noted. CXR revealed pulmonary congestion/ edema. Lasix was given, sats in upper 90s. He has no new complaints today. Family History: Unchanged from Admission Social History: Unchanged from Admission Past Medical History: Unchanged from Admission Objective Active Medications: Acetaminophen (Tylenol Tab*) 650 mg PO Q4H PRN PRN Reason: FEVER/PAIN Last Admin: 11/19/17 19:38 Dose: 650 mg Amlodipine Besylate (Norvasc Tab*) 5 mg PO DAILY [facility] Last Admin: 11/20/17 09:50 Dose: 5 mg Aspirin (Aspirin Ec Tab*) 81 mg PO DAILY [facility] Last Admin: 11/20/17 09:50 Dose: 81 mg Benzonatate (Tessalon Cap*) 200 mg PO TID PRN PRN Reason: cough Last Admin: 11/20/17 12:09 Dose: 200 mg Bisacodyl (Dulcolax Supp*) 10 mg ND DAILY PRN PRN Reason: CONSTIPATION Dextrose (D50w Syringe 50 Ml*) 12.5 gm IV PUSH .FOR FS < 60 - SS PRN PRN Reason: FS < 60 Diphenhydramine HCl (Benadryl Po*) 25 mg PO Q8H PRN PRN Reason: ITCHING Last Admin: 11/19/17 22:28 Dose: 25 mg Docusate Sodium (Colace Cap*) 200 mg PO BID PRN PRN Reason: CONSTIPATION Famotidine (Pepcid Tab*) 20 mg PO BID [facility] Last Admin: 11/20/17 09:50 Dose: 20 mg Furosemide (Lasix Iv*) 40 mg IV DAILY [facility] Last Admin: 11/20/17 13:42 Dose: 40 mg Guaifenesin (Mucinex*) 600 mg PO BID [facility] Last Admin: 11/20/17 09:50 Dose: 600 mg Vancomycin HCl 1,000 mg/ (Sodium Chloride) 250 mls @ 166.667 mls/hr IVPB Q12H [facility] Last Admin: 11/20/17 17:42 Dose: 80 mls/hr Insulin Human Lispro (Humalog*) 0 units SUBCUT AC [facility] PRN Reason: Protocol Last Admin: 11/20/17 17:42 Dose: 1 units Lactulose (Lactulose*) 30 ml PO DAILY [facility] Last Admin: 11/20/17 09:50 Dose: 30 ml Lisinopril (Prinivil Tab*) 10 mg PO DAILY [facility] Last Admin: 11/20/17 09:50 Dose: 10 mg Magnesium Oxide (Magox 400 Tab*) 400 mg PO DAILY [facility] Last Admin: 11/20/17 09:50 Dose: 400 mg Melatonin (Melatonin (Nf)) 3 mg PO BEDTIME [facility] Last Admin: 11/19/17 22:07 Dose: 3 mg Metoprolol Tartrate (Lopressor Tab*) 25 mg PO BID [facility] Last Admin: 11/20/17 09:50 Dose: 25 mg Morphine Sulfate (Morphine Vial*) 2 mg IV Q4H PRN PRN Reason: PAIN Ondansetron HCl (Zofran Inj*) 4 mg IV Q4H PRN PRN Reason: NAUSEA/VOMITING Oxycodone/Acetaminophen (Percocet 5/325 Tab*) 1 tab PO Q6H PRN PRN Reason: PAIN Last Admin: 11/20/17 02:45 Dose: 1 tab Pharmacy Consult (Vancomycin Per Pharmacy*) 1 note FOLLOW UP . PRN PRN Reason: PER PROTOCOL Pharmacy Profile Note (Vancomycin Trough Check) 1 note FOLLOW UP ONCE ONE Stop: 11/22/17 05:31 Polyethylene Glycol/Electrolytes (Miralax*) 17 gm PO DAILY [facility] Last Admin: 11/20/17 09:49 Dose: 17 gm Prednisone (Deltasone Tab*) 20 mg PO DAILY [facility] Stop: 11/23/17 12:00 Throat Lozenges (Chloraseptic Bruno*) 1 bruno PO Q2H PRN PRN Reason: SORE THROAT Last Admin: 11/20/17 17:40 Dose: 1 bruno Vital Signs - 8 hr 11/20/17 11/20/17 12:20 15:38 Temperature 99.1 F Pulse Rate 85 91 Respiratory 20 20 Rate Blood Pressure 149/98 155/80 (mmHg) O2 Sat by Pulse 95 95 Oximetry Oxygen Devices in Use Now: None Appearance: Appears tired, but comfortable in bed and in NAD. Eyes: No Scleral Icterus, PERRLA Ears/Nose/Mouth/Throat: Clear Oropharnyx - No exudate noted. , Mucous Membranes Moist Respiratory: Symmetrical Chest Expansion and Respiratory Effort, Clear to Auscultation Cardiovascular: NL Sounds; No Murmurs; No JVD, RRR Abdominal: NL Sounds; No Tenderness; No Distention Lymphatic: No Cervical Adenopathy Extremities: No Edema Neurological: Alert and Oriented x 3, NL Sensation Nutrition: Taking PO's Result Diagrams: 11/19/17 05:57 11/19/17 05:57 Additional Lab and Data: . Microbiology and Other Data: . Diagnostic Imaging: Patient Name: GAURANG EDGAR Medical Record#: [id number] Ordering Physician: Anuj Nice [employer] REPRESENTATIVE Acct.#: [id number] : 1950 Age: 67 Sex: M Location: [address] [place] [address] MEDICAL/TELEMETRY Exam Date: 11/20/17209 ADM Status: ADM IN Order Information: CHEST AP PORTABLE Accession Number: [id number] CPT: 08195 INDICATION: Sepsis COMPARISON: Chest x-ray dated November 18, 2017 TECHNIQUE: Single AP portable view of the chest was obtained. FINDINGS: Image quality is compromised due to the relative inferiority of a portable chest x-ray. The heart and mediastinum exhibit normal size and contour. There are patchy densities overlying the bilateral lungs. The pulmonary vasculature is mildly engorged and indistinct. Linear densities extending from the right lateral pleura are consistent with "Alberta B lines". Visualized bones are normal for the patient's age. IMPRESSION: In the correct clinical setting radiographic findings are consistent with pulmonary edema/vascular congestion. EKG Data: EKG INTERPRETATION ECG Report Patient Name GAURANG EDGAR Birthdate 1950 Sex M Order Number [id number] Date of ECG 11/19/2017 09:20:54 Interpretation Poor baseline. Sinus rhythm.normal P axis, V-rate 60- 99 RBBB and LEFT AXIS DEVIATION. - ABNORMAL ECG- NO SIGNIFICANT CHANGES SINCE THE PREVIOUS RECORD OF 12 Lead 07/20/2017 19:13:20 Electronically signed on 11/19/2017 at 09:33 by Cristian Beckman MD Assess/Plan/Problems-Billing Assessment: Mr. Edgar is a 67 y.o male with a history of DM, HTN and osteomylitis with poor wound healing on the right foot. was transferred from [facility] for evaluation of possible sepsis, clinically improving with IV Vanco, await Right BKA on Sunday. Now with URI symptoms. - Patient Problems (1) Sepsis Current Visit: Yes Status: Acute Comment: - Patient meets criteria for sepsis without septic shock. - He also met criteria for sepsis upon admission, likely secondary to osteomylitis - Will continue his Vanco - He has a score of 4.9% for cardiac risk on ACS risk calculator, making him a high risk for surgery - Will postpone procedure until medically optimized. - Cardiac consult appreciated, patient remains a high risk for surgery; however , he is fully aware and still would like to proceed with surgery. (2) Osteomyelitis Current Visit: No Status: Acute Comment: - Ortho following- surgery on hold- will continue vancomycin. Patient tolerating Vanco well, given Benadryl as a precaution. - suspect rash to bilat leg and abd was related to ancef - Low grade fever this AM likely secondary to URI symptoms - ID consult appreciated. Discussed with Dr. Nicole, likely viral URI, will hold any additional Abx for now giving his recent reaction to Ancef. (3) Fever Current Visit: Yes Status: Acute Comment: - Meet criteria for sepsis with accompanied tachycardia - Still with cough, sore throat and low grade fever this AM - WBC unchanged, stable - Portable CXR with unchanged pulmonary edema, rapid flu A/B negative (4) Rash Current Visit: Yes Status: Acute Comment: - suspect this is related to drug rash - will continue benadryl 25 mg po as needed for itching rash has improved since yestreday- pain associated with the rash is gone - does continue to have purpura rash to left lower leg continues to tolerate vancomycin (5) Diabetes Current Visit: No Status: Acute Comment: lispro SS and fingersticks (6) HTN (hypertension) Current Visit: No Status: Acute Comment: - Will continue lisinopril - Isolated hypertension this AM after multiple bouts of cough, Hydralazine 5mg once ordered (7) Tobacco abuse Current Visit: No Status: Acute Comment: - nicotine patch (8) Upper respiratory infection Current Visit: Yes Status: Acute Comment: - Likely viral, will await throat Cx and rapid flu A/B - Portable CXR with congestion and pumonary edema - Mucinex and Choloraseptic for symptomatic relieve - Lasix 40mg daily (9) DVT prophylaxis Current Visit: No Status: Acute Comment: heparin sub-q (10) Full code status Current Visit: No Status: Acute Status and Disposition: Inpatient. Anticipate discharge to SNF when medically stable.
--- NOTE | 2017-11-20 20:02 | CONS ---
CONSULTATION REPORT: DATE OF CONSULT: 11/20/17 REQUESTING PROVIDER: Ariana Bee NP. CONSULTING SERVICE: Infectious Disease. REASON FOR CONSULTATION: Staph bacteremia. IMPRESSION: 1. MSSA bacteremia, cultures obtained on 11/01/17 at [facility]. He was started on Ancef and found to have a right foot transmetatarsal amputation, cellulitis and abscess that also grew MSSA. No other distant sites of infection including negative transesophageal echocardiogram. No other prosthetic material present and no spine or other joint pain. 2. 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 3. Type 2 diabetes. RECOMMENDATIONS: 1. Continue vancomycin, goal [id number] to 20. 2. Prednisone 20 mg a day for 3 days for his small vessel vasculitis rash. 3. Operative intervention for his right foot is pending. HISTORY OF PRESENT ILLNESS: This 67-year-old man was admitted to [place] on , with fever, malaise, right foot pain, swelling, redness and drainage from the open amputation site. He had had a transmetatarsal amputation in July, at that time he had had group B Strep bacteremia. I discussed the case with the providers at [facility]. I had recommended the transesophageal echocardiogram which I obtained and is negative. Because of the rash, I recommended change him to vancomycin as the rash has eased off a bit , it was quite itchy and painful initially, it is still itchy and painful, but not as bad. Most seen on both legs. He has been seen by Orthopedics and planning for amputation. He has had a cough for a couple of weeks which is nonproductive. He has had low grade fever. No chest pain. X-ray showed pulmonary edema. His breathing is improving with diuresis. PAST MEDICAL HISTORY: 1. History of right foot transmetatarsal amputation for osteomyelitis. 2. Type 2 diabetes with neuropathy. 3. Hypertension. 4. Right arm injury in 1969 and [id number] amputation. 5. Status post left first toe amputation. MEDICATIONS: 1. Tylenol. 2. Amlodipine. 3. Aspirin. 4. Benzonatate. 5. Bisacodyl suppository. 6. Benadryl. 7. Famotidine. 8. Lasix. 9. Lactulose. 10. Magnesium oxide. 11. Melatonin. 12. Metoprolol. 13. Vancomycin 1 g every 12 hours. ALLERGIES: ANCEF and CONTRAST DYE. FAMILY HISTORY: No recurrent infections. SOCIAL HISTORY: He lives in [facility]. He is a nonsmoker. No injection drugs. REVIEW OF SYSTEMS: A 14-point review of systems is all negative except as noted above. PHYSICAL EXAM: Vital Signs: Temperature 37, heart rate 80, respiratory rate 20 , blood pressure 150/100, oxygen saturation 95% on room air. General: He is awake, not in distress. Neurologic: He is oriented x3. Follows all commands. Moves all extremities. Sensation is decreased to light touch in both feet. Neck is supple without mass. Lymph Nodes: There is no cervical, supraclavicular, inguinal, axillary or epitrochlear lymphadenopathy. Heart: Regular rate and rhythm without murmurs, rubs or gallops. Lungs: Clear to auscultation bilaterally. Abdomen is soft, nontender, nondistended. There are bowel sounds present. Skin: Both lower extremities, there is fading purplish linear and patchy rash which is nonblanching, some areas on the medial ankles that are superficial ulceration, rash is nontender and nonpalpable. Musculoskeletal: There is no spine tenderness to palpation or joint synovitis. Right foot amputation site, there is a 2.5 cm round open area with underlying granulation tissue, some surrounding serous drainage. No crepitus or fluctuance. DIAGNOSTIC STUDIES/LAB DATA: White blood cell count 10, hemoglobin 10, platelets 339,000. Creatinine is 0.8. Please see impressions and recommendations outline above, which I discussed with BEAR Wang. Thanks for asking me to see Mr. Subramanian in consultation. TIME SPENT: 70 minutes of floor time, greater than 50% [id number] discussion of plans for antibiotics, surgery and treatment of his rash. [id number]/[facility] #: [id number] NICOLE
[2017-11-20] MEDS: CMCS Melatonin (NF) 3 MG TAB PO SCH (21:22)
[2017-11-20] MEDS: Acetaminophen TAB* 325 MG PO PRN (21:29)
[2017-11-21] MEDS: Benzocaine/Menthol LOZ* 1 LOZENGE PO PRN (03:56)
[2017-11-21] MEDS: Vancomycin(*) 1,000 MG in NS 0.9% 250 ML* 250 ML IVPB SCH ×2 (06:19→17:49)
[2017-11-21] MEDS: Magnesium Oxide TAB* 400 MG PO SCH (08:27)
[2017-11-21] MEDS: Lisinopril TAB* 10 MG PO SCH (08:28)
[2017-11-21] MEDS: amLODIPine TAB* 5 MG PO SCH (08:28)
[2017-11-21] MEDS: guaiFENesin ER TAB 600 MG PO SCH ×2 (08:28→20:03)
[2017-11-21] MEDS: Aspirin EC TAB* 81 MG TAB.EC PO SCH (08:28)
[2017-11-21] MEDS: Famotidine TAB* 20 MG PO SCH ×2 (08:28→20:03)
[2017-11-21] MEDS: Metoprolol Tartrate TAB* 25 MG PO SCH ×2 (08:28→20:03)
[2017-11-21] MEDS: Polyethylene Glycol 3350* 17 GM PACKET PO SCH (08:29)
[2017-11-21] MEDS: predniSONE TAB* 20 MG PO SCH (08:29)
[2017-11-21] MEDS: Insulin LISPRO* 1 UNITS UNIT SUBCUT SCH ×3 (08:29→17:49)
[2017-11-21] MEDS: Furosemide IV* 10 MG/ML VIAL (40 MG) IV SCH (08:30)
[2017-11-21 08:58] LABS: ABS Basophils 0.1 10^3/ul (0-0.2); ABS Eosinophils 0.2 10^3/ul (0-0.6); ABS Lymphocytes 1.5 10^3/ul (1.0-4.8); ABS Monocytes 1.2 10^3/ul (0-0.8); ABS Neutrophils 10.4 10^3/ul (1.5-7.7); ABS Nucleated RBC 0 10^3/ul; Eosinophil % 1.2 % (0-6); Hematocrit 33 % (42-52); Hemoglobin 10.5 g/dl (14.0-18.0); Lymphocyte % 11.5 % (25-47); Mean Corpuscular HGB Conc 32 g/dl (31-36); Mean Corpuscular Hemoglobin 25 pg (27-31); Mean Corpuscular Volume 77 fL (80-94); Mean Platelet Volume 7.4 um3 (7.4-10.4); Nucleated Red Blood Cells % 0; Platelet Count 381 10^3/ul (150-450); Red Cell Distribution Width 15 % (10.5-15); White Blood Count 13.4 10^3/ul (3.5-10.8)
[2017-11-21 09:17] LABS: EGFR Non-African American 75.9 (>60)
[2017-11-21] MEDS: oxyCODONE/Acetamin 5/325 MG* TAB PO PRN (10:24)
[2017-11-21] MEDS ORDERED: Buffered Lidocaine 0.9% SYRIN* 5 ML/SYR SYRINGE INTRADERM ONE (13:00)
--- NOTE | 2017-11-21 15:18 | PN ---
Progress Note - Progress Note Date of Service: 11/21/17 SOAP: Subjective: []Patient seen at bedside. He denies pain of RLE, CP, SOB, cough, nasal congestion. Confirms continued sore throat. Objective: []General: NAD MSK: RLE -Boot in place. Calf soft, nontender, nonerythematous Vital Signs Temp 99.1 F 11/21/17 11:09 Pulse 82 11/21/17 11:09 Resp 16 11/21/17 11:09 BP 122/63 11/21/17 11:09 Pulse Ox 95 11/21/17 11:09 Intake & Output 11/20/17 11/21/17 11/21/17 18:59 06:59 18:59 Intake Total 840 276 782 Output Total 600 150 Balance 240 126 782 Weight 197 lb 3.2 oz Intake: IV Fluids 20 Vancomycin 20 IVPB 256 242 Vancomycin 256 242 Oral 840 0 540 Output: Urine 600 150 Other: # Bowel Movements 0 1 Estimated Stool Amount Large Laboratory Last Values WBC 13.4 10^3/ul (3.5-10.8) H 11/21/17 08:40 RBC 4.20 10^6/ul (4.0-5.4) 11/21/17 08:40 Hgb 10.5 g/dl (14.0-18.0) L 11/21/17 08:40 Hct 33 % (42-52) L 11/21/17 08:40 MCV 77 fL (80-94) L 11/21/17 08:40 MCH 25 pg (27-31) L 11/21/17 08:40 MCHC 32 g/dl (31-36) 11/21/17 08:40 RDW 15 % (10.5-15) 11/21/17 08:40 Plt Count 381 10^3/ul (150-450) 11/21/17 08:40 MPV 7.4 um3 (7.4-10.4) 11/21/17 08:40 Neut % (Auto) 77.5 % (38-83) 11/21/17 08:40 Lymph % (Auto) 11.5 % (25-47) L 11/21/17 08:40 [place] % (Auto) 9.2 % (0-7) H 11/21/17 08:40 Eos % (Auto) 1.2 % (0-6) 11/21/17 08:40 Baso % (Auto) 0.6 % (0-2) 11/21/17 08:40 Absolute Neuts (auto) 10.4 10^3/ul (1.5-7.7) H 11/21/17 08:40 Absolute Lymphs (auto) 1.5 10^3/ul (1.0-4.8) 11/21/17 08:40 Absolute Monos (auto) 1.2 10^3/ul (0-0.8) H 11/21/17 08:40 Absolute Eos (auto) 0.2 10^3/ul (0-0.6) 11/21/17 08:40 Absolute Basos (auto) 0.1 10^3/ul (0-0.2) 11/21/17 08:40 Absolute Nucleated RBC 0 10^3/ul 11/21/17 08:40 Nucleated RBC % 0 11/21/17 08:40 ESR 99 mm/Hr (0-40) H 11/15/17 21:43 INR (Anticoag Therapy) 1.02 (0.77-1.02) 11/16/17 07:11 Sodium 133 mmol/L (139-145) L 11/21/17 08:40 Potassium 3.7 mmol/L (3.5-5.0) 11/21/17 08:40 Chloride 97 mmol/L (101-111) L 11/21/17 08:40 Carbon Dioxide 26 mmol/L (22-32) 11/21/17 08:40 Anion Gap 10 mmol/L (2-11) 11/21/17 08:40 BUN 14 mg/dL (6-24) 11/21/17 08:40 Creatinine 0.99 mg/dL (0.67-1.17) 11/21/17 08:40 Est GFR ( Amer) 97.6 (>60) 11/21/17 08:40 Est GFR (Non-Af Amer) 75.9 (>60) 11/21/17 08:40 BUN/Creatinine Ratio 14.1 (8-20) 11/21/17 08:40 Glucose 165 mg/dL (70-100) H 11/21/17 08:40 POC Glucose (mg/dL) 205 mg/dL (70-100) H 11/21/17 12:01 POC Glucose Confirm 140 mg/dL (70-100) H 11/19/17 08:01 Lactic Acid 1.1 mmol/L (0.5-2.0) 11/15/17 21:43 Calcium 8.5 mg/dL (8.6-10.3) L 11/21/17 08:40 C-Reactive Protein 121.73 mg/L (< 5.00) H 11/16/17 07:11 B-Natriuretic Peptide 327 pg/mL (-100) H 11/18/17 06:57 Urine Color Yellow 11/16/17 00:18 Urine Appearance Clear 11/16/17 00:18 Urine pH 6.0 (5-9) 11/16/17 00:18 Ur Specific [place] 1.013 (1.010-1.030) 11/16/17 00:18 Urine Protein 2+(100 mg/dl) (Negative) A 11/16/17 00:18 Urine Ketones Negative (Negative) 11/16/17 00:18 Urine Blood 3+ (Negative) A 11/16/17 00:18 Urine Nitrate Negative (Negative) 11/16/17 00:18 Urine Bilirubin Negative (Negative) 11/16/17 00:18 Urine Urobilinogen Negative (Negative) 11/16/17 00:18 Ur Leukocyte Esterase Trace (Negative) A 11/16/17 00:18 Urine WBC (Auto) 2+(11-20/hpf) (Absent) A 11/16/17 00:18 Urine RBC (Auto) 3+(>10/hpf) (Absent) A 11/16/17 00:18 Urine Bacteria Absent (Absent) 11/16/17 00:18 Urine Glucose Negative (Negative) 11/16/17 00:18 Vancomycin Trough 21.2 mcg/mL 11/20/17 09:40 Influenza A (Rapid) Negative (Negative) 11/18/17 12:44 Influenza B (Rapid) Negative (Negative) 11/18/17 12:44 Assessment: 1. Osteomylitis right foot. Plan: []Appreciate medical management - Confirm medically optimized though is a high cardiac risk. NPO after midnight
--- NOTE | 2017-11-21 16:02 | PN ---
Subjective Date of Service: 11/21/17 Interval History: Patient states URI symptoms only present when in bed and much more mild than previously. Patient denies CP, SOB, N/V, abdominal pain, diarrhea, constipation , F/C, dysuria, or other pain. Patient anxiously awaiting surgery tomorrow. No pain in legs from rash at this time. Family History: Unchanged from Admission Social History: Unchanged from Admission Past Medical History: Unchanged from Admission Objective Active Medications: Acetaminophen (Tylenol Tab*) 650 mg PO Q4H PRN PRN Reason: FEVER/PAIN Last Admin: 11/20/17 21:29 Dose: 650 mg Amlodipine Besylate (Norvasc Tab*) 5 mg PO DAILY [facility] Last Admin: 11/21/17 08:28 Dose: 5 mg Benzonatate (Tessalon Cap*) 200 mg PO TID PRN PRN Reason: cough Last Admin: 11/20/17 12:09 Dose: 200 mg Bisacodyl (Dulcolax Supp*) 10 mg MD DAILY PRN PRN Reason: CONSTIPATION Dextrose (D50w Syringe 50 Ml*) 12.5 gm IV PUSH .FOR FS < 60 - SS PRN PRN Reason: FS < 60 Diphenhydramine HCl (Benadryl Po*) 25 mg PO Q8H PRN PRN Reason: ITCHING Last Admin: 11/19/17 22:28 Dose: 25 mg Docusate Sodium (Colace Cap*) 200 mg PO BID PRN PRN Reason: CONSTIPATION Famotidine (Pepcid Tab*) 20 mg PO BID [facility] Last Admin: 11/21/17 08:28 Dose: 20 mg Furosemide (Lasix Iv*) 40 mg IV DAILY [facility] Last Admin: 11/21/17 08:30 Dose: 40 mg Guaifenesin (Mucinex*) 600 mg PO BID [facility] Last Admin: 11/21/17 08:28 Dose: 600 mg Vancomycin HCl 1,000 mg/ (Sodium Chloride) 250 mls @ 166.667 mls/hr IVPB Q12H [facility] Last Admin: 11/21/17 06:19 Dose: 63 mls/hr Lactated Ringer's (Lactated Ringers 1000 Ml Bag*) 1,000 mls @ 125 mls/hr IV PER RATE [facility] Insulin Human Lispro (Humalog*) 0 units SUBCUT AC [facility] PRN Reason: Protocol Last Admin: 11/21/17 13:44 Dose: 4 units Lactulose (Lactulose*) 30 ml PO DAILY [facility] Last Admin: 11/21/17 08:29 Dose: 30 ml Lisinopril (Prinivil Tab*) 10 mg PO DAILY [facility] Last Admin: 11/21/17 08:28 Dose: 10 mg Magnesium Oxide (Magox 400 Tab*) 400 mg PO DAILY [facility] Last Admin: 11/21/17 08:27 Dose: 400 mg Melatonin (Melatonin (Nf)) 3 mg PO BEDTIME [facility] Last Admin: 11/20/17 21:22 Dose: 3 mg Metoprolol Tartrate (Lopressor Tab*) 25 mg PO BID [facility] Last Admin: 11/21/17 08:28 Dose: 25 mg Morphine Sulfate (Morphine Vial*) 2 mg IV Q4H PRN PRN Reason: PAIN Ondansetron HCl (Zofran Inj*) 4 mg IV Q4H PRN PRN Reason: NAUSEA/VOMITING Oxycodone/Acetaminophen (Percocet 5/325 Tab*) 1 tab PO Q6H PRN PRN Reason: PAIN Last Admin: 11/21/17 10:24 Dose: 1 tab Pharmacy Consult (Vancomycin Per Pharmacy*) 1 note FOLLOW UP . PRN PRN Reason: PER PROTOCOL Pharmacy Profile Note (Vancomycin Trough Check) 1 note FOLLOW UP ONCE ONE Stop: 11/22/17 05:31 Polyethylene Glycol/Electrolytes (Miralax*) 17 gm PO DAILY [facility] Last Admin: 11/21/17 08:29 Dose: 17 gm Prednisone (Deltasone Tab*) 20 mg PO DAILY [facility] Stop: 11/23/17 12:00 Last Admin: 11/21/17 08:29 Dose: 20 mg Throat Lozenges (Chloraseptic Bruno*) 1 bruno PO Q2H PRN PRN Reason: SORE THROAT Last Admin: 11/21/17 03:56 Dose: 1 bruno Vital Signs - 8 hr 11/21/17 11/21/17 11/21/17 08:00 10:24 11:09 Temperature 99.1 F Pulse Rate 82 Respiratory 26 26 16 Rate Blood Pressure 122/63 (mmHg) O2 Sat by Pulse 95 Oximetry Oxygen Devices in Use Now: None Appearance: Patient is a 67yo male who appears stated age and is sitting in the bed in NAD. Eyes: No Scleral Icterus, PERRLA Ears/Nose/Mouth/Throat: NL Teeth, Lips, Gums, Clear Oropharnyx, Mucous Membranes Moist Neck: NL Appearance and Movements; NL JVP, Trachea Midline Respiratory: Symmetrical Chest Expansion and Respiratory Effort, Clear to Auscultation Cardiovascular: NL Sounds; No Murmurs; No JVD, RRR, No Edema Abdominal: NL Sounds; No Tenderness; No Distention, No Hepatosplenomegaly Lymphatic: No Cervical Adenopathy Extremities: No Clubbing, Cyanosis, - - Right foot S/P TMA Skin: No Nodules or Sclerosis, - - Punctate erythematous rash on B/L LE and thighs. Neurological: Alert and Oriented x 3, NL Sensation, NL Muscle Strength and Tone , - - CN II-XII intact. Result Diagrams: 11/21/17 08:40 11/21/17 08:40 Additional Lab and Data: . Microbiology and Other Data: . Assess/Plan/Problems-Billing Assessment: Mr. Subramanian is a 67 y.o male with a history of DM, HTN and osteomylitis with poor wound healing on the right foot. was transferred from [facility] for evaluation of possible sepsis, clinically improving with IV Vanco. Plan for RBKA 11/22. - Patient Problems (1) Sepsis Current Visit: Yes Status: Acute Priority: High Comment: Patient meets criteria for sepsis without septic shock. He also met criteria for sepsis upon admission, likely secondary to osteomylitis Will continue his Vanco He has a score of 4.9% for cardiac risk on ACS risk calculator, making him a high risk for surgery on 11/22. URI symptoms resolved. Cardiac consult appreciated, patient remains a high risk for surgery; however, he is fully aware and still would like to proceed with surgery. (2) Osteomyelitis Current Visit: No Status: Acute Priority: High Code(s): M86.9 - OSTEOMYELITIS, UNSPECIFIED SNOMED Code(s): 01963818 Comment: Ortho following plan for BKA on 11/22 Continue vancomycin. Patient tolerating Vanco well. ID consult appreciated. (3) Fever Current Visit: Yes Status: Acute Code(s): R50.9 - FEVER, UNSPECIFIED SNOMED Code(s): 674745432 Comment: Met criteria for sepsis with accompanied tachycardia Fever and other symptoms resolved. WBC increased, possibly due to steroid therapy. Portable CXR with unchanged pulmonary edema, rapid flu A/B negative. Likely viral URI. (4) Rash Current Visit: Yes Status: Acute Code(s): R21 - RASH AND OTHER NONSPECIFIC SKIN ERUPTION SNOMED Code(s): 960366934 Comment: Likely drug rash Continue benadryl 25 mg po as needed for itching Rash has improved Improved purpuric rash to left lower leg Continues vancomycin with steroids, no reaction. (5) Upper respiratory infection Current Visit: Yes Status: Acute Code(s): J06.9 - ACUTE UPPER RESPIRATORY INFECTION, UNSPECIFIED SNOMED Code(s): 04254895 Comment: Resolved. No longer impediment to surgery. (6) Abnormal EKG Current Visit: No Status: Acute Priority: High Code(s): R94.31 - ABNORMAL ELECTROCARDIOGRAM [ECG] [EKG] SNOMED Code(s): 716868057 Comment: EKG with RBBB. Stable from 07/2017 Appreciate Cardiology consult. (7) Diabetes Current Visit: No Status: Acute Priority: High Code(s): E11.9 - TYPE 2 DIABETES MELLITUS WITHOUT COMPLICATIONS SNOMED Code(s): 15010271 Comment: Lispro SS and fingersticks Moderate control. A1c 8.8 in 07/2017 (8) HTN (hypertension) Current Visit: No Status: Acute Priority: High Code(s): I10 - ESSENTIAL ( PRIMARY) HYPERTENSION SNOMED Code(s): 58869663 Comment: Will continue lisinopril perioperatively Intermittently hypertensive. Normotensive today. (9) DVT prophylaxis Current Visit: No Status: Acute Priority: High Code(s): TFP8062 - SNOMED Code(s): 563160805 Comment: Heparin SubQ, will hold for surgery. SCDs (10) Full code status Current Visit: No Status: Acute Priority: High Code(s): Z78.9 - OTHER SPECIFIED HEALTH STATUS SNOMED Code(s): 902122506 Status and Disposition: Inpatient. Anticipate discharge to SNF when medically stable.
[2017-11-21] MEDS: diPHENhydraMINE PO* 25 MG PO PRN (17:49)
[2017-11-21] MEDS ORDERED: Heparin VIAL(*) 5000 UNITS/ML VIAL (FIVE THOUSAND) SUBCUT SCH (19:30)
[2017-11-21] MEDS: CMCS Melatonin (NF) 3 MG TAB PO SCH (20:03)
[2017-11-21 21:33] LABS: ABS Basophils 0.1 10^3/ul (0-0.2); ABS Eosinophils 0 10^3/ul (0-0.6); ABS Lymphocytes 1.2 10^3/ul (1.0-4.8); ABS Monocytes 0.8 10^3/ul (0-0.8); ABS Neutrophils 7.9 10^3/ul (1.5-7.7); ABS Nucleated RBC 0 10^3/ul; Eosinophil % 0.3 % (0-6); Hematocrit 30 % (42-52); Hemoglobin 9.9 g/dl (14.0-18.0); Lymphocyte % 11.6 % (25-47); Mean Corpuscular HGB Conc 33 g/dl (31-36); Mean Corpuscular Hemoglobin 25 pg (27-31); Mean Corpuscular Volume 78 fL (80-94); Mean Platelet Volume 7.7 um3 (7.4-10.4); Nucleated Red Blood Cells % 0; Platelet Count 333 10^3/ul (150-450); Red Blood Count 3.91 10^6/ul (4.0-5.4); Red Cell Distribution Width 15 % (10.5-15); White Blood Count 9.9 10^3/ul (3.5-10.8)
[2017-11-21 21:42] LABS: EGFR Non-African American 70.1 (>60); INR 1.02 (0.77-1.02)
[2017-11-22] MEDS ORDERED: Vancomycin Trough Check NOTE FOLLOW UP ONE (05:30)
[2017-11-22 05:42] LABS: ABS Basophils 0.1 10^3/ul (0-0.2); ABS Eosinophils 0.1 10^3/ul (0-0.6); ABS Lymphocytes 2.2 10^3/ul (1.0-4.8); ABS Monocytes 1.1 10^3/ul (0-0.8); ABS Neutrophils 6.8 10^3/ul (1.5-7.7); ABS Nucleated RBC 0 10^3/ul; Eosinophil % 1.4 % (0-6); Hematocrit 29 % (42-52); Hemoglobin 9.7 g/dl (14.0-18.0); Lymphocyte % 21.4 % (25-47); Mean Corpuscular HGB Conc 33 g/dl (31-36); Mean Corpuscular Hemoglobin 26 pg (27-31); Mean Corpuscular Volume 77 fL (80-94); Mean Platelet Volume 7.3 um3 (7.4-10.4); Nucleated Red Blood Cells % 0; Platelet Count 350 10^3/ul (150-450); Red Blood Count 3.79 10^6/ul (4.0-5.4); Red Cell Distribution Width 15 % (10.5-15); White Blood Count 10.4 10^3/ul (3.5-10.8)
[2017-11-22 05:50] LABS: INR 1.01 (0.77-1.02)
[2017-11-22 06:18] LABS: EGFR Non-African American 60.2 (>60)
--- NOTE | 2017-11-22 07:47 | PN ---
Progress Note - Progress Note Date of Service: 11/22/17 Note: I saw and examined Yogi yesterday. Dr. Barth has asked for my assistance with Yogi's right below the knee amputation. This was scheduled for earlier in the week, but was delayed due to medical issues. Now that he is cleared for surgery by the medical and cardiology services, Dr. Barth asked if I would be willing to do his surgery. Yogi has had a complicated history with this right lower extremity. He had a serious infection and osteomyelitis, leading to and midfoot amputation in July 2017. He had issues with wound healing and developed a recurrent infection, cellulitis and abscess formation. He became septic and had MSSA bacteremia, and was admitted. He has been stabilized from a medical standpoint. Temp Pulse Resp BP Pulse Ox 98.1 F 67 20 115/61 97 11/22/17 03:46 11/22/17 03:46 11/22/17 03:46 11/22/17 03:46 11/22/17 03:46 WBC 10.4 CRP 134 Upon my discussion with him, he is anxious to move forward with the below the knee amputation. He is understandably frustrated by the prolonged course with his right stump and is hopeful that the below the knee amputation will allow him to move forward. We discussed at length with the surgery and details as well as the pros/cons and risks/benefits. We did discuss alternatives such as trying to salvage his midfoot stump. He was not interested in this, and it expresses desire to move forward with a below the knee amputation. All of his questions were answered, and we will move forward with a below the knee amputation later today. Justyn Sanon MD
[2017-11-22] MEDS: Insulin LISPRO* 1 UNITS UNIT SUBCUT SCH ×3 (08:11→17:43)
[2017-11-22] MEDS: guaiFENesin ER TAB 600 MG PO SCH ×2 (08:57→20:54)
[2017-11-22] MEDS: Lisinopril TAB* 10 MG PO SCH (08:57)
[2017-11-22] MEDS: Polyethylene Glycol 3350* 17 GM PACKET PO SCH (08:57)
[2017-11-22] MEDS: predniSONE TAB* 20 MG PO SCH (08:57)
[2017-11-22] MEDS: Magnesium Oxide TAB* 400 MG PO SCH (08:57)
[2017-11-22] MEDS: amLODIPine TAB* 5 MG PO SCH (08:57)
[2017-11-22] MEDS: Metoprolol Tartrate TAB* 25 MG PO SCH ×2 (08:57→20:54)
[2017-11-22] MEDS: Famotidine TAB* 20 MG PO SCH ×2 (08:57→20:54)
[2017-11-22] MEDS: Vancomycin(*) 750 MG in NS 0.9% 250 ML* 250 ML IVPB SCH ×2 (09:48→22:37)
[2017-11-22] MEDS: diPHENhydraMINE PO* 25 MG PO PRN (09:48)
[2017-11-22] MEDS: Vancomycin(*) 1,000 MG in NS 0.9% 250 ML* 250 ML IVPB SCH (12:16)
--- NOTE | 2017-11-22 12:43 | PN ---
Subjective Date of Service: 11/22/17 Interval History: Patient feels well today. No CP, SOB, N/V, abdominal pain, diarrhea, dysuria, F/ C, or other pain. Rash on legs no longer itches or hurts as long as he uses moisturizing cream routinely. Anxious for surgery today. Family History: Unchanged from Admission Social History: Unchanged from Admission Past Medical History: Unchanged from Admission Objective Active Medications: Acetaminophen (Tylenol Tab*) 650 mg PO Q4H PRN PRN Reason: FEVER/PAIN Last Admin: 11/20/17 21:29 Dose: 650 mg Amlodipine Besylate (Norvasc Tab*) 5 mg PO DAILY [facility] Last Admin: 11/22/17 08:57 Dose: 5 mg Benzonatate (Tessalon Cap*) 200 mg PO TID PRN PRN Reason: cough Last Admin: 11/20/17 12:09 Dose: 200 mg Bisacodyl (Dulcolax Supp*) 10 mg ND DAILY PRN PRN Reason: CONSTIPATION Dextrose (D50w Syringe 50 Ml*) 12.5 gm IV PUSH .FOR FS < 60 - SS PRN PRN Reason: FS < 60 Diphenhydramine HCl (Benadryl Po*) 25 mg PO Q8H PRN PRN Reason: ITCHING Last Admin: 11/22/17 09:48 Dose: 25 mg Docusate Sodium (Colace Cap*) 200 mg PO BID PRN PRN Reason: CONSTIPATION Famotidine (Pepcid Tab*) 20 mg PO BID [facility] Last Admin: 11/22/17 08:57 Dose: 20 mg Guaifenesin (Mucinex*) 600 mg PO BID [facility] Last Admin: 11/22/17 08:57 Dose: 600 mg Lactated Ringer's (Lactated Ringers 1000 Ml Bag*) 1,000 mls @ 125 mls/hr IV PER RATE [facility] Last Admin: 11/22/17 06:08 Dose: 125 mls/hr Vancomycin HCl 750 mg/ Sodium (Chloride) 250 mls @ 166.667 mls/hr IVPB Q12H [facility] Last Admin: 11/22/17 09:48 Dose: 80 mls/hr Insulin Human Lispro (Humalog*) 0 units SUBCUT AC [facility] PRN Reason: Protocol Last Admin: 11/22/17 12:05 Dose: Not Given Lactulose (Lactulose*) 30 ml PO DAILY [facility] Last Admin: 11/22/17 09:48 Dose: 30 ml Lisinopril (Prinivil Tab*) 10 mg PO DAILY [facility] Last Admin: 11/22/17 08:57 Dose: 10 mg Magnesium Oxide (Magox 400 Tab*) 400 mg PO DAILY [facility] Last Admin: 11/22/17 08:57 Dose: 400 mg Melatonin (Melatonin (Nf)) 3 mg PO BEDTIME [facility] Last Admin: 11/21/17 20:03 Dose: 3 mg Metoprolol Tartrate (Lopressor Tab*) 25 mg PO BID [facility] Last Admin: 11/22/17 08:57 Dose: 25 mg Morphine Sulfate (Morphine Vial*) 2 mg IV Q4H PRN PRN Reason: PAIN Ondansetron HCl (Zofran Inj*) 4 mg IV Q4H PRN PRN Reason: NAUSEA/VOMITING Oxycodone/Acetaminophen (Percocet 5/325 Tab*) 1 tab PO Q6H PRN PRN Reason: PAIN Last Admin: 11/21/17 10:24 Dose: 1 tab Pharmacy Consult (Vancomycin Per Pharmacy*) 1 note FOLLOW UP . PRN PRN Reason: PER PROTOCOL Pharmacy Profile Note (Vancomycin Trough Check) 1 note FOLLOW UP 0830 ONE Stop: 11/24/17 08:31 Polyethylene Glycol/Electrolytes (Miralax*) 17 gm PO DAILY [facility] Last Admin: 11/22/17 08:57 Dose: Not Given Prednisone (Deltasone Tab*) 20 mg PO DAILY [facility] Stop: 11/23/17 12:00 Last Admin: 11/22/17 08:57 Dose: 20 mg Throat Lozenges (Chloraseptic Bruno*) 1 bruno PO Q2H PRN PRN Reason: SORE THROAT Last Admin: 11/21/17 03:56 Dose: 1 bruno Vital Signs - 8 hr 11/22/17 11/22/17 11/22/17 07:56 08:00 09:48 Temperature 98.1 F Pulse Rate 80 Respiratory 16 16 16 Rate Blood Pressure 137/57 (mmHg) O2 Sat by Pulse 95 Oximetry 11/22/17 11/22/17 11:48 12:20 Temperature 98.0 F Pulse Rate 70 70 Respiratory 16 Rate Blood Pressure 136/75 160/84 (mmHg) O2 Sat by Pulse 97 95 Oximetry Oxygen Devices in Use Now: None Appearance: Patient is a 67yo male who appears stated age and is sitting in the bed in [facility]. Eyes: No Scleral Icterus, PERRLA Ears/Nose/Mouth/Throat: NL Teeth, Lips, Gums, Clear Oropharnyx, Mucous Membranes Moist Neck: NL Appearance and Movements; NL JVP, Trachea Midline Respiratory: Symmetrical Chest Expansion and Respiratory Effort, Clear to Auscultation Cardiovascular: NL Sounds; No Murmurs; No JVD, RRR, No Edema Abdominal: NL Sounds; No Tenderness; No Distention, No Hepatosplenomegaly Lymphatic: No Cervical Adenopathy Extremities: No Edema, No Clubbing, Cyanosis, - - Right arm amputated. Right foot amputated and covered in SHAHEEN wrap. Skin: No Nodules or Sclerosis, - - Purpuric rash on B/L LE. Stable from previous exam. Neurological: Alert and Oriented x 3, NL Sensation, NL Muscle Strength and Tone , - - CN II-XII intact. Result Diagrams: 11/22/17 05:33 11/22/17 05:33 Additional Lab and Data: . Microbiology and Other Data: . Diagnostic Imaging: Patient Name: GARUANG EDGAR Medical Record#: [id number] Ordering Physician: Anuj Nice BARREL RIFLER BROACH Acct.#: [id number] : 1950 Age: 67 Sex: M Location: [address] [place] [address] MEDICAL/TELEMETRY Exam Date: 11/20/17209 ADM Status: ADM IN Order Information: CHEST AP PORTABLE Accession Number: [id number] CPT: 49084 INDICATION: Sepsis COMPARISON: Chest x-ray dated November 18, 2017 TECHNIQUE: Single AP portable view of the chest was obtained. FINDINGS: Image quality is compromised due to the relative inferiority of a portable chest x-ray. The heart and mediastinum exhibit normal size and contour. There are patchy densities overlying the bilateral lungs. The pulmonary vasculature is mildly engorged and indistinct. Linear densities extending from the right lateral pleura are consistent with "Alberta B lines". Visualized bones are normal for the patient's age. IMPRESSION: In the correct clinical setting radiographic findings are consistent with pulmonary edema/vascular congestion. EKG Data: EKG INTERPRETATION ECG Report Patient Name GAURANG EDGAR Birthdate 1950 Sex M Order Number [id number] Date of ECG 11/19/2017 09:20:54 Interpretation Poor baseline. Sinus rhythm.normal P axis, V-rate 60- 99 RBBB and LEFT AXIS DEVIATION. - ABNORMAL ECG- NO SIGNIFICANT CHANGES SINCE THE PREVIOUS RECORD OF 12 Lead 07/20/2017 19:13:20 Electronically signed on 11/19/2017 at 09:33 by Cristian Beckman MD Assess/Plan/Problems-Billing Assessment: Mr. Edgar is a 67 y.o male with a history of DM, HTN and osteomylitis with poor wound healing on the right foot. was transferred from [facility] for evaluation of possible sepsis, clinically improving with IV Vanco. Plan for RBKA 11/22. - Patient Problems (1) Sepsis Current Visit: Yes Status: Acute Priority: High Comment: Patient meets criteria for sepsis without septic shock. He also met criteria for sepsis upon admission, likely secondary to osteomylitis Will continue his Vanco He has a score of 4.9% for cardiac risk on ACS risk calculator, making him a high risk for surgery on 11/22. URI symptoms resolved. Cardiac consult appreciated, patient remains a high risk for surgery; however, he is fully aware and still would like to proceed with surgery. (2) Osteomyelitis Current Visit: No Status: Acute Priority: High Code(s): M86.9 - OSTEOMYELITIS, UNSPECIFIED SNOMED Code(s): 89710667 Comment: Ortho following plan for BKA on 11/22 Continue vancomycin. Patient tolerating Vanco well. ID consult appreciated. CRP increased today, definitive treatment will be amputation. (3) Fever Current Visit: Yes Status: Acute Code(s): R50.9 - FEVER, UNSPECIFIED SNOMED Code(s): 323101836 Comment: Met criteria for sepsis with accompanied tachycardia Fever and other symptoms resolved. WBC increased, possibly due to steroid therapy. Portable CXR with unchanged pulmonary edema, rapid flu A/B negative. Likely viral URI. (4) Rash Current Visit: Yes Status: Acute Code(s): R21 - RASH AND OTHER NONSPECIFIC SKIN ERUPTION SNOMED Code(s): 592079985 Comment: Likely drug rash Continue benadryl 25 mg po as needed for itching Rash has improved Improved purpuric rash to left lower leg Continues vancomycin with steroids, no reaction. (5) Upper respiratory infection Current Visit: Yes Status: Acute Code(s): J06.9 - ACUTE UPPER RESPIRATORY INFECTION, UNSPECIFIED SNOMED Code(s): 36636681 Comment: Resolved. No longer impediment to surgery. (6) Abnormal EKG Current Visit: No Status: Acute Priority: High Code(s): R94.31 - ABNORMAL ELECTROCARDIOGRAM [ECG] [EKG] SNOMED Code(s): 573865356 Comment: EKG with RBBB. Stable from 07/2017 Appreciate Cardiology consult. (7) Diabetes Current Visit: No Status: Acute Priority: High Code(s): E11.9 - TYPE 2 DIABETES MELLITUS WITHOUT COMPLICATIONS SNOMED Code(s): 14797344 Comment: Lispro SS and fingersticks Moderate control. A1c 8.8 in 07/2017 (8) HTN (hypertension) Current Visit: No Status: Acute Priority: High Code(s): I10 - ESSENTIAL ( PRIMARY) HYPERTENSION SNOMED Code(s): 60026586 Comment: Will continue lisinopril perioperatively Intermittently hypertensive. Normotensive today. (9) DVT prophylaxis Current Visit: No Status: Acute Priority: High Code(s): SZY9083 - SNOMED Code(s): 856746873 Comment: Heparin SubQ, will hold for surgery. SCDs (10) Full code status Current Visit: No Status: Acute Priority: High Code(s): Z78.9 - OTHER SPECIFIED HEALTH STATUS SNOMED Code(s): 768215677 Status and Disposition: Inpatient. Anticipate discharge to SNF when medically stable.
[2017-11-22] MEDS ORDERED: Ondansetron INJ* 2 MG/ML SYRINGE (from 40/20 VIAL) IV ONE (14:00)
[2017-11-22] MEDS ORDERED: fentaNYL* 50 MCG/ML 2 ML VIAL (100 MCG VIAL) ONE (14:10)
[2017-11-22] MEDS ORDERED: Midazolam* 1 MG/ML 2 ML VIAL (2 MG) ONE (14:10)
[2017-11-22] MEDS ORDERED: Bupivacaine 0.5% PF 10 ML VIAL INJ ONE (14:33)
[2017-11-22] MEDS ORDERED: Lidocaine 2% PF * 5 ML VIAL ONE (16:07)
[2017-11-22] MEDS ORDERED: Propofol* 10 MG/ML 20 ML BTL IV PUSH ONE (16:07)
[2017-11-22] MEDS ORDERED: Naloxone* 0.4 MG/ML 1 ML VIAL IV PRN (16:37)
[2017-11-22] MEDS ORDERED: HYDROmorphone INJ* 2 MG/ML CARPUJECT SYRINGE ONE (16:39)
[2017-11-22] MEDS: HYDROmorphone INJ* 1 MG/ML CARPUJECT SYRINGE IV PRN ×5 (16:42→17:07)
--- NOTE | 2017-11-22 16:43 | OP ---
Operative Report - Blank - Operative Report Date of Operation: 11/22/17 Note: PATIENT: Hao Subramanian DATE OF : 1950 DATE OF SURGERY: 11/22/2017 SURGEON: Justyn Sanon MD BASKET ASSEMBLER: BEAR Hogan, whos assistance was necessary for positioning, retraction, help with instrumentation, and closure. ANESTHESIOLOGIST: Raeann Hernandez MD PREOPERATIVE DIAGNOSIS: Right foot stump infection POSTOPERATIVE DIAGNOSIS: Right foot stump infection OPERATION: Right below the knee amputation ANESTHESIA: GETA IMPLANTS: none TOURNIQUET TIME: Less than 2 hours with a well-padded thigh tourniquet at 250mmHg. SPECIMENS: Foot sent to pathology ESTIMATED BLOOD LOSS: minimal COMPLICATIONS: none STATUS: Stable from the operating room to the recovery room and then back to the hospital floor. INDICATIONS FOR PROCEDURE: Hao had a prior midfoot amputation and developed recurrent infection and ulceration at the stump. Both operative and non operative treatment alternatives were reviewed. Salvage was offered. Further, the nature and risks of surgery were reviewed in careful detail. Our discussions regarding the risks of surgery included, but were not limited to, infection, wound problems, nerve injury, neuroma, RSD, persistent symptoms, blood clot, persistent or worsening infection, phantom limb pain, failure of the surgery, need for further amputation, and even the remote chance of catastrophic complication, including . He expressed his desire to move forward with a below the knee amputation. DESCRIPTION OF PROCEDURE: The patient was seen in the preoperative holding unit and informed written consent was obtained. The appropriate extremity was marked. The patient was then brought to the operating room and carefully positioned on the operating room table. Anesthesia was induced. All bony prominences were padded with great care. A well-padded thigh tourniquet was placed. A chlorhexidine based pre- scrub was performed followed by a chloraprep prep and drape in standard sterile fashion. A surgical safety pause was then conducted in which we confirmed the appropriate patient, extremity, planned procedure, availability of equipment, indication and administration of antibiotics, and DVT prophylaxis in the form of a compression boot on the non-surgical extremity. We began with Esmarch exsanguination of the limb, avoiding the involved foot, and inflated the tourniquet. I utilized a posterior flap-based incision. The tibial osteotomy was measured to be about 15cm below the level of the knee joint. I carefully planned out the incision and then began the incision anteriorly. I dissected down through the anterior compartment musculature and identified the peroneal nerves and anterior tibial neurovascular bundle. The bundle was carefully tied off with 0 silk hand ties and the nerves were transected proximally in the soft tissue. The dissection was carried down to the intermuscular septum. I then dissected medially from the tibial crest. The saphenous nerve and vein were identified and transected proximally and ligated, respectively. I then continued the incision distally both medially and laterally with great care taken to maintain hemostasis. At this point, I performed a tibial and then fibular osteotomy with an oscillating saw. The fibular osteotomy was made a couple of centimeters proximal to the tibial osteotomy. The leg was then flexed through the osteotomy site and I dissected down the posterior aspect of the tibia and fibula and removed the specimen after completing the posterior incision and coming across the posterior flap distally. The posterior flap was maintained at approximately 15cm in length. Hemostasis was obtained after the leg was passed off to be sent to pathology. I then dissected out the posterior neurovascular bundle. The tibial artery and vein were ligated with 0 silk hand ties. The tibial nerve was then transected proximal to the stump of the remnant tibia. I debulked the posterior flap and removed excess skin and soft tissue from the posterior flap. I identified the sural nerve and transected this as far proximally as possible. I beveled the anterior tibia with a small oscillating saw and used a rasp to smooth the stump. There were no longer any sharp edges. The wound was copiously irrigated. I then used a 2.5 mm drill to drill 2 holes into the distal tibia through which #2 Ethibond was passed and then also passed into the Achilles to perform a myodesis, bringing the gastroc-soleus complex and Achilles tendon up to the remnant tibia. This nicely covered the tibial stump. I then passed a 10-Kazakh Jordi drain through the wound and out of the lateral leg. The wound was again copiously irrigated and then meticulously closed in layers utilizing #1 Vicryl, 0 Vicryl, 2-0 Vicryl, 3-0 Monocryl, and tony on the skin. Xeroform and a sterile dressing were then applied followed by a posterior splint with the knee fully extended. The patient was then awakened from anesthesia and transferred to the recovery room in stable condition. There were no complications. All needle and sponge counts were correct at the end of the case. ATTESTATION: I attest I was present and scrubbed and performed the critical portions of the procedure myself. POSTOPERATIVE PLAN: The patient will be readmitted to the hospitalist service postoperatively. We will monitor the drain output and pull it out when there is minimal to no output. The tony will be left in the stump for a likely duration of 3-4 weeks.
[2017-11-22] MEDS ORDERED: Gabapentin CAP(*) 300 MG PO SCH (17:04)
[2017-11-22] MEDS ORDERED: Gabapentin CAP(*) 300 MG ONE (17:10)
[2017-11-22] MEDS ORDERED: oxyCODONE/Acetamin 5/325 MG* TAB ONE (17:10)
[2017-11-22] MEDS: oxyCODONE/Acetamin 5/325 MG* TAB PO PRN ×2 (17:14→23:37)
[2017-11-22] MEDS ORDERED: Insulin LISPRO* 1 UNITS UNIT SUBCUT ONE (17:41)
[2017-11-22] MEDS: Gabapentin CAP(*) 300 MG PO SCH (18:41)
[2017-11-22] MEDS: Morphine VIAL* 4 MG/ML VIAL (1 ml vial) IV PRN (18:47)
[2017-11-22] MEDS: Acetaminophen TAB* 325 MG PO PRN (20:55)
[2017-11-22] MEDS: CMCS Melatonin (NF) 3 MG TAB PO SCH (22:37)
[2017-11-23] MEDS: Morphine VIAL* 4 MG/ML VIAL (1 ml vial) IV PRN (03:40)
[2017-11-23] MEDS ORDERED: Morphine VIAL* 4 MG/ML VIAL (1 ml vial) IV PRN (03:58)
[2017-11-23] MEDS: Cyclobenzaprine TAB* 10 MG PO PRN ×2 (04:06→10:15)
[2017-11-23 05:21] LABS: ABS Basophils 0.1 10^3/ul (0-0.2); ABS Eosinophils 0.1 10^3/ul (0-0.6); ABS Monocytes 1.2 10^3/ul (0-0.8); ABS Neutrophils 6.9 10^3/ul (1.5-7.7); ABS Nucleated RBC 0 10^3/ul; Eosinophil % 1.4 % (0-6); Hematocrit 30 % (42-52); Hemoglobin 9.6 g/dl (14.0-18.0); Lymphocyte % 19.1 % (25-47); Mean Corpuscular HGB Conc 32 g/dl (31-36); Mean Corpuscular Hemoglobin 25 pg (27-31); Mean Corpuscular Volume 78 fL (80-94); Mean Platelet Volume 7.6 um3 (7.4-10.4); Nucleated Red Blood Cells % 0; Platelet Count 341 10^3/ul (150-450); Red Blood Count 3.83 10^6/ul (4.0-5.4); Red Cell Distribution Width 15 % (10.5-15); White Blood Count 10.4 10^3/ul (3.5-10.8)
[2017-11-23 05:38] LABS: EGFR Non-African American 57.4 (>60)
[2017-11-23] MEDS: oxyCODONE/Acetamin 5/325 MG* TAB PO PRN ×3 (05:47→20:47)
[2017-11-23] MEDS: Insulin LISPRO* 1 UNITS UNIT SUBCUT SCH ×3 (08:12→17:51)
[2017-11-23] MEDS: Polyethylene Glycol 3350* 17 GM PACKET PO SCH (08:13)
[2017-11-23] MEDS: Vancomycin(*) 750 MG in NS 0.9% 250 ML* 250 ML IVPB SCH ×2 (08:13→20:48)
[2017-11-23] MEDS: Magnesium Oxide TAB* 400 MG PO SCH (08:14)
[2017-11-23] MEDS: Lisinopril TAB* 10 MG PO SCH (08:14)
[2017-11-23] MEDS: amLODIPine TAB* 5 MG PO SCH (08:14)
[2017-11-23] MEDS: predniSONE TAB* 20 MG PO SCH (08:14)
[2017-11-23] MEDS: guaiFENesin ER TAB 600 MG PO SCH ×2 (08:14→20:48)
[2017-11-23] MEDS: Metoprolol Tartrate TAB* 25 MG PO SCH ×2 (08:14→20:48)
[2017-11-23] MEDS: Gabapentin CAP(*) 300 MG PO SCH ×2 (08:14→20:47)
[2017-11-23] MEDS: Famotidine TAB* 20 MG PO SCH ×2 (08:14→20:47)
[2017-11-23] MEDS ORDERED: Ketorolac INJ* 30 MG/ML 1 ML VIAL IV PUSH PRN (09:23)
--- NOTE | 2017-11-23 09:46 | PN ---
Progress Note - Progress Note Date of Service: 11/23/17 SOAP: Subjective: CC: osteomyelitis HPI: 67 year old man with right leg BKA for gangrene and osteomyelitis. He feels well, pain at amputation site, no fever, rash, or diarrhea. Objective: Vital Signs Temp 36.6 C 11/23/17 07:54 Pulse 79 11/23/17 07:54 Resp 16 11/23/17 08:14 BP 159/76 11/23/17 07:54 Pulse Ox 94 11/23/17 07:54 Intake & Output 11/22/17 11/23/17 11/23/17 18:59 06:59 18:59 Intake Total 1100 1065 240 Output Total 50 690 Balance 1050 375 240 Intake: IV Fluids 1100 265 LR 1100 Vancomycin 265 Oral 800 240 Output: AARON #1 40 Urine 50 650 Other: # Bowel Movements 0 Estimated Blood Loss NOT MEASURED Comment Gen: awake, no distress HEENT: no thrush Heart:RRR no murmur Lungs:CTA BL Abd:+BS NTND soft Skin: BL LE palpable and non palpable purpura MSK: R leg casted Laboratory Results - last 24 hr 11/22/17 11/23/17 11/23/17 17:37 05:02 05:02 WBC 10.4 RBC 3.83 L Hgb 9.6 L Hct 30 L MCV 78 L MCH 25 L MCHC 32 RDW 15 Plt Count 341 MPV 7.6 Neut % (Auto) 67.1 Lymph % (Auto) 19.1 L [place] % (Auto) 11.6 H Eos % (Auto) 1.4 Baso % (Auto) 0.8 Absolute Neuts (auto) 6.9 Absolute Lymphs (auto) 2.0 Absolute Monos (auto) 1.2 H Absolute Eos (auto) 0.1 Absolute Basos (auto) 0.1 Absolute Nucleated RBC 0 Nucleated RBC % 0 Sodium 135 L Potassium 3.9 Chloride 101 Carbon Dioxide 28 Anion Gap 6 BUN 22 Creatinine 1.26 H Est GFR ( Amer) 73.9 Est GFR (Non-Af Amer) 57.4 BUN/Creatinine Ratio 17.5 Glucose 134 H POC Glucose (mg/dL) 214 H Calcium 8.1 L 11/23/17 07:22 WBC RBC Hgb Hct MCV MCH MCHC RDW Plt Count MPV Neut % (Auto) Lymph % (Auto) [place] % (Auto) Eos % (Auto) Baso % (Auto) Absolute Neuts (auto) Absolute Lymphs (auto) Absolute Monos (auto) Absolute Eos (auto) Absolute Basos (auto) Absolute Nucleated RBC Nucleated RBC % Sodium Potassium Chloride Carbon Dioxide Anion Gap BUN Creatinine Est GFR ( Amer) Est GFR (Non-Af Amer) BUN/Creatinine Ratio Glucose POC Glucose (mg/dL) 143 H Calcium ASSESMENT: 1: right foot gangrene and acute osteomyelitis due to MSSA s/p R BKA 2. 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 diabetes with neuropathy 4. MSSA bacteremia, resolved PLAN: 1. abx day 14 since presumed negative BC, MICAH negative. Will DC vanco 11/25, it will be therapuetic through 11/27. Below extra VS can't be removed I tried Vital Signs Temp 36.6 C 11/23/17 07:54 Pulse 79 11/23/17 07:54 Resp 16 11/23/17 08:14 BP 159/76 11/23/17 07:54 Pulse Ox 94 11/23/17 07:54 Intake & Output 11/22/17 11/23/17 11/23/17 18:59 06:59 18:59 Intake Total 1100 1065 240 Output Total 50 690 Balance 1050 375 240 Intake: IV Fluids 1100 265 LR 1100 Vancomycin 265 Oral 800 240 Output: AARON #1 40 Urine 50 650 Other: # Bowel Movements 0 Estimated Blood Loss NOT MEASURED Comment
[2017-11-23] MEDS ORDERED: Ketorolac INJ* 15 MG/ML 1 ML VIAL ONE (10:14)
[2017-11-23] MEDS: Ketorolac INJ* 15 MG/ML 1 ML VIAL IV PUSH PRN (10:15)
--- NOTE | 2017-11-23 15:10 | PN ---
Progress Note - Progress Note Date of Service: 11/23/17 SOAP: Subjective: 67 yr old male S/P R BKA by Dr Sanon 11/22. Patient without complaints, states pain under control. No questions re: surgery. VSS afebrile. Objective: General- Well appearing, NAD AO SIttign eating breakfast comfortably MSK- Dresssing intact, no drianage noted, no indurtaion, erythema about SHAHEEN wrap. Resolving vasculitis worse on L LE. Vital Signs Temp 98.6 F 11/23/17 11:28 Pulse 71 11/23/17 11:28 Resp 16 11/23/17 13:06 BP 149/77 11/23/17 11:28 Pulse Ox 97 11/23/17 11:28 Intake & Output 11/22/17 11/23/17 11/23/17 18:59 06:59 18:59 Intake Total 1100 1065 240 Output Total 50 690 Balance 1050 375 240 Intake: IV Fluids 1100 265 LR 1100 Vancomycin 265 Oral 800 240 Output: AARON #1 40 Urine 50 650 Other: # Bowel Movements 0 Estimated Blood Loss NOT MEASURED Comment Assessment: Stable S/P R BKA by Dr Sanon 11/22 Plan: - Per ID: abx day 14 since presumed negative BC, MICAH negative. Will DC vanco , it will be therapuetic through 11/27. - NWB RLE - PT/ OT - Placement needed at patient homeless currently, ed case manager Acetaminophen (Tylenol Tab*) 650 mg PO Q4H PRN PRN Reason: FEVER/PAIN Last Admin: 11/22/17 20:55 Dose: 650 mg Amlodipine Besylate (Norvasc Tab*) 5 mg PO DAILY SONJA Last Admin: 11/23/17 08:14 Dose: 5 mg Benzonatate (Tessalon Cap*) 200 mg PO TID PRN PRN Reason: cough Last Admin: 11/20/17 12:09 Dose: 200 mg Bisacodyl (Dulcolax Supp*) 10 mg SC DAILY PRN PRN Reason: CONSTIPATION Cyclobenzaprine HCl (Flexeril Tab*) 10 mg PO TID PRN PRN Reason: SPASMS Last Admin: 11/23/17 10:15 Dose: 10 mg Dextrose (D50w Syringe 50 Ml*) 12.5 gm IV PUSH .FOR FS < 60 - SS PRN PRN Reason: FS < 60 Diphenhydramine HCl (Benadryl Po*) 25 mg PO Q8H PRN PRN Reason: ITCHING Last Admin: 11/22/17 09:48 Dose: 25 mg Docusate Sodium (Colace Cap*) 200 mg PO BID PRN PRN Reason: CONSTIPATION Famotidine (Pepcid Tab*) 20 mg PO BID [facility] Last Admin: 11/23/17 08:14 Dose: 20 mg Gabapentin (Neurontin Cap(*)) 300 mg PO 0900,2100 [facility] Last Admin: 11/23/17 08:14 Dose: 300 mg Guaifenesin (Mucinex*) 600 mg PO BID [facility] Last Admin: 11/23/17 08:14 Dose: 600 mg Vancomycin HCl 750 mg/ Sodium (Chloride) 250 mls @ 166.667 mls/hr IVPB Q12H [facility] Stop: 11/25/17 23:59 Last Admin: 11/23/17 08:13 Dose: 166.667 mls/hr Insulin Human Lispro (Humalog*) 0 units SUBCUT AC [facility] PRN Reason: Protocol Last Admin: 11/23/17 13:09 Dose: 2 units Ketorolac Tromethamine (Toradol Inj*) 15 mg IV PUSH Q6H PRN PRN Reason: PAIN Last Admin: 11/23/17 10:15 Dose: 15 mg Lactulose (Lactulose*) 30 ml PO DAILY [facility] Last Admin: 11/23/17 08:13 Dose: 30 ml Lisinopril (Prinivil Tab*) 10 mg PO DAILY [facility] Last Admin: 11/23/17 08:14 Dose: 10 mg Magnesium Oxide (Magox 400 Tab*) 400 mg PO DAILY [facility] Last Admin: 11/23/17 08:14 Dose: 400 mg Melatonin (Melatonin (Nf)) 3 mg PO BEDTIME [facility] Last Admin: 11/22/17 22:37 Dose: 3 mg Metoprolol Tartrate (Lopressor Tab*) 25 mg PO BID [facility] Last Admin: 11/23/17 08:14 Dose: 25 mg Morphine Sulfate (Morphine Vial*) 4 mg IV Q4H PRN PRN Reason: PAIN Ondansetron HCl (Zofran Inj*) 4 mg IV Q4H PRN PRN Reason: NAUSEA/VOMITING Oxycodone/Acetaminophen (Percocet 5/325 Tab*) 2 tab PO Q6H PRN PRN Reason: PAIN Last Admin: 11/23/17 13:06 Dose: 2 tab Pharmacy Consult (Vancomycin Per Pharmacy*) 1 note FOLLOW UP . PRN PRN Reason: PER PROTOCOL Pharmacy Profile Note (Vancomycin Trough Check) 1 note FOLLOW UP 829 ONE Stop: 11/24/17 08:31 Polyethylene Glycol/Electrolytes (Miralax*) 17 gm PO DAILY SONJA Last Admin: 11/23/17 08:13 Dose: 17 gm Throat Lozenges (Chloraseptic Bruno*) 1 bruno PO Q2H PRN PRN Reason: SORE THROAT Last Admin: 11/21/17 03:56 Dose: 1 bruno
--- NOTE | 2017-11-23 16:38 | PN ---
Subjective Date of Service: 11/23/17 Interval History: Mr. Edgar is doing well today. He is POD#1, s/p right BKA. Reports having better appetite, denies any significant pain this afternoon. Toradol was added to his Morphine/Percocet regimen with good relief. Denies chest pain, palpitations, difficulty breathing or SOB. Family History: Unchanged from Admission Social History: Unchanged from Admission Past Medical History: Unchanged from Admission Objective Active Medications: Acetaminophen (Tylenol Tab*) 650 mg PO Q4H PRN PRN Reason: FEVER/PAIN Last Admin: 11/22/17 20:55 Dose: 650 mg Amlodipine Besylate (Norvasc Tab*) 5 mg PO DAILY SONJA Last Admin: 11/23/17 08:14 Dose: 5 mg Benzonatate (Tessalon Cap*) 200 mg PO TID PRN PRN Reason: cough Last Admin: 11/20/17 12:09 Dose: 200 mg Bisacodyl (Dulcolax Supp*) 10 mg [place] DAILY PRN PRN Reason: CONSTIPATION Cyclobenzaprine HCl (Flexeril Tab*) 10 mg PO TID PRN PRN Reason: SPASMS Last Admin: 11/23/17 10:15 Dose: 10 mg Dextrose (D50w Syringe 50 Ml*) 12.5 gm IV PUSH .FOR FS < 60 - SS PRN PRN Reason: FS < 60 Diphenhydramine HCl (Benadryl Po*) 25 mg PO Q8H PRN PRN Reason: ITCHING Last Admin: 11/22/17 09:48 Dose: 25 mg Docusate Sodium (Colace Cap*) 200 mg PO BID PRN PRN Reason: CONSTIPATION Famotidine (Pepcid Tab*) 20 mg PO BID [facility] Last Admin: 11/23/17 08:14 Dose: 20 mg Gabapentin (Neurontin Cap(*)) 300 mg PO 0900,2100 [facility] Last Admin: 11/23/17 08:14 Dose: 300 mg Guaifenesin (Mucinex*) 600 mg PO BID [facility] Last Admin: 11/23/17 08:14 Dose: 600 mg Heparin Sodium (Porcine) (Heparin Vial(*)) 5,000 units SUBCUT Q8HR [facility] Vancomycin HCl 750 mg/ Sodium (Chloride) 250 mls @ 166.667 mls/hr IVPB Q12H [facility] Stop: 11/25/17 23:59 Last Admin: 11/23/17 08:13 Dose: 166.667 mls/hr Insulin Human Lispro (Humalog*) 0 units SUBCUT AC [facility] PRN Reason: Protocol Last Admin: 11/23/17 13:09 Dose: 2 units Ketorolac Tromethamine (Toradol Inj*) 15 mg IV PUSH Q6H PRN PRN Reason: PAIN Last Admin: 11/23/17 10:15 Dose: 15 mg Lactulose (Lactulose*) 30 ml PO DAILY [facility] Last Admin: 11/23/17 08:13 Dose: 30 ml Lisinopril (Prinivil Tab*) 10 mg PO DAILY [facility] Last Admin: 11/23/17 08:14 Dose: 10 mg Magnesium Oxide (Magox 400 Tab*) 400 mg PO DAILY [facility] Last Admin: 11/23/17 08:14 Dose: 400 mg Melatonin (Melatonin (Nf)) 3 mg PO BEDTIME [facility] Last Admin: 11/22/17 22:37 Dose: 3 mg Metoprolol Tartrate (Lopressor Tab*) 25 mg PO BID [facility] Last Admin: 11/23/17 08:14 Dose: 25 mg Morphine Sulfate (Morphine Vial*) 4 mg IV Q4H PRN PRN Reason: PAIN Ondansetron HCl (Zofran Inj*) 4 mg IV Q4H PRN PRN Reason: NAUSEA/VOMITING Oxycodone/Acetaminophen (Percocet 5/325 Tab*) 2 tab PO Q6H PRN PRN Reason: PAIN Last Admin: 11/23/17 13:06 Dose: 2 tab Pharmacy Consult (Vancomycin Per Pharmacy*) 1 note FOLLOW UP . PRN PRN Reason: PER PROTOCOL Pharmacy Profile Note (Vancomycin Trough Check) 1 note FOLLOW UP 0830 ONE Stop: 11/24/17 08:31 Polyethylene Glycol/Electrolytes (Miralax*) 17 gm PO DAILY [facility] Last Admin: 11/23/17 08:13 Dose: 17 gm Throat Lozenges (Chloraseptic Bruno*) 1 bruno PO Q2H PRN PRN Reason: SORE THROAT Last Admin: 11/21/17 03:56 Dose: 1 bruno Vital Signs - 8 hr 11/23/17 11/23/17 11/23/17 10:13 10:15 11:28 Temperature 98.6 F Pulse Rate 71 Respiratory 15 16 16 Rate Blood Pressure 149/77 (mmHg) O2 Sat by Pulse 97 Oximetry 11/23/17 11/23/17 11/23/17 12:15 13:06 15:16 Temperature Pulse Rate Respiratory 16 16 14 Rate Blood Pressure (mmHg) O2 Sat by Pulse Oximetry 11/23/17 15:24 Temperature 98.3 F Pulse Rate 68 Respiratory 14 Rate Blood Pressure 148/69 (mmHg) O2 Sat by Pulse 90 Oximetry Oxygen Devices in Use Now: None Appearance: Appears cofortable, laying on bed and in NAD. Eyes: No Scleral Icterus, PERRLA Ears/Nose/Mouth/Throat: Clear Oropharnyx, Mucous Membranes Moist Neck: NL Appearance and Movements; NL JVP, Trachea Midline Respiratory: Symmetrical Chest Expansion and Respiratory Effort, Clear to Auscultation Cardiovascular: NL Sounds; No Murmurs; No JVD, RRR Abdominal: NL Sounds; No Tenderness; No Distention Extremities: - - RLE with clean SHAHEEN wrap dressing around mid-tibial stumb. AARON drain with 10 cc bloody output. No edema or swelling noted. Skin: - - Lower extremities rash improved, compared to prior exam. Neurological: Alert and Oriented x 3, NL Sensation, NL Muscle Strength and Tone Nutrition: Taking PO's Result Diagrams: 11/23/17 05:02 11/23/17 05:02 Additional Lab and Data: . Microbiology and Other Data: . Diagnostic Imaging: . EKG Data: EKG INTERPRETATION ECG Report Patient Name GAURANG EDGAR Birthdate 1950 Sex M Order Number [id number] Date of ECG 11/19/2017 09:20:54 Interpretation Poor baseline. Sinus rhythm.normal P axis, V-rate 60- 99 RBBB and LEFT AXIS DEVIATION. - ABNORMAL ECG- NO SIGNIFICANT CHANGES SINCE THE PREVIOUS RECORD OF 12 Lead 07/20/2017 19:13:20 Electronically signed on 11/19/2017 at 09:33 by Cristian Beckman MD Assess/Plan/Problems-Billing Assessment: Mr. Edgar is a 67 y.o male with a history of DM, HTN and osteomylitis with poor wound healing on the right foot and possible sepsis, who is POD#1 s/p right BKA, doing well. - Patient Problems (1) Sepsis Current Visit: Yes Status: Acute Comment: Patient meets criteria for sepsis without septic shock. He also met criteria for sepsis upon admission, likely secondary to osteomylitis Will continue his Vanco, ID input appreciated, check labs in AM His fever has ipmroved, HR normalized and WBC is normal (2) Osteomyelitis Current Visit: No Status: Acute Comment: Ortho following plan for BKA POD#1 Continue vancomycin. Patient tolerating Vanco well. (3) Fever Current Visit: Yes Status: Acute Comment: Met criteria for sepsis with accompanied tachycardia Fever and other symptoms resolved. WBC normalized Portable CXR with unchanged pulmonary edema, rapid flu A/B negative. Likely viral URI. (4) Rash Current Visit: Yes Status: Acute Comment: Likely drug rash Continue benadryl 25 mg po as needed for itching Rash has improved Improved purpuric rash to left lower leg Continues vancomycin with steroids, no reaction. (5) Diabetes Current Visit: No Status: Acute Comment: Lispro SS and fingersticks Moderate control. A1c 8.8 in 07/2017 (6) HTN (hypertension) Current Visit: No Status: Acute Comment: Will continue lisinopril perioperatively Intermittently hypertensive. Normotensive today. (7) Tobacco abuse Current Visit: No Status: Acute Comment: - nicotine patch (8) Upper respiratory infection Current Visit: Yes Status: Acute Comment: Resolved. No longer an issue for post-op period (9) DVT prophylaxis Current Visit: No Status: Acute Comment: Heparin SubQ will be resumed after discussed with ortho BEAR Alonzo (10) Full code status Current Visit: No Status: Acute Status and Disposition: Inpatient. Anticipate discharge to [facility] bed when medically stable, hopefully by Sunday.
[2017-11-23] MEDS: CMCS Melatonin (NF) 3 MG TAB PO SCH (20:47)
[2017-11-23] MEDS: Heparin VIAL(*) 5000 UNITS/ML VIAL (FIVE THOUSAND) SUBCUT SCH (20:48)
[2017-11-24] MEDS: Heparin VIAL(*) 5000 UNITS/ML VIAL (FIVE THOUSAND) SUBCUT SCH ×3 (05:08→22:03)
[2017-11-24 05:47] LABS: ABS Basophils 0 10^3/ul (0-0.2); ABS Eosinophils 0.1 10^3/ul (0-0.6); ABS Lymphocytes 1.7 10^3/ul (1.0-4.8); ABS Nucleated RBC 0 10^3/ul; Eosinophil % 1.2 % (0-6); Hematocrit 30 % (42-52); Hemoglobin 9.6 g/dl (14.0-18.0); Lymphocyte % 19.8 % (25-47); Mean Corpuscular HGB Conc 33 g/dl (31-36); Mean Corpuscular Hemoglobin 26 pg (27-31); Mean Corpuscular Volume 78 fL (80-94); Mean Platelet Volume 7.8 um3 (7.4-10.4); Nucleated Red Blood Cells % 0; Platelet Count 347 10^3/ul (150-450); Red Blood Count 3.78 10^6/ul (4.0-5.4); Red Cell Distribution Width 15 % (10.5-15); White Blood Count 8.8 10^3/ul (3.5-10.8)
[2017-11-24] MEDS: oxyCODONE/Acetamin 5/325 MG* TAB PO PRN ×3 (06:41→22:02)
[2017-11-24] MEDS ORDERED: Vancomycin Trough Check NOTE FOLLOW UP ONE (08:30)
[2017-11-24] MEDS: Insulin LISPRO* 1 UNITS UNIT SUBCUT SCH ×3 (08:40→17:39)
[2017-11-24] MEDS: Famotidine TAB* 20 MG PO SCH ×2 (08:40→22:02)
[2017-11-24] MEDS: Gabapentin CAP(*) 300 MG PO SCH ×2 (08:42→22:02)
[2017-11-24] MEDS: Magnesium Oxide TAB* 400 MG PO SCH (08:43)
[2017-11-24] MEDS: guaiFENesin ER TAB 600 MG PO SCH ×2 (08:43→22:03)
[2017-11-24] MEDS: Metoprolol Tartrate TAB* 25 MG PO SCH ×2 (08:43→19:39)
[2017-11-24] MEDS: amLODIPine TAB* 5 MG PO SCH (08:43)
[2017-11-24] MEDS: Lisinopril TAB* 10 MG PO SCH (08:43)
[2017-11-24] MEDS: Polyethylene Glycol 3350* 17 GM PACKET PO SCH (08:44)
[2017-11-24 08:54] LABS: EGFR Non-African American 51.7 (>60)
[2017-11-24 09:19] LABS: Vancomycin Trough 20.1 mcg/mL
[2017-11-24] MEDS: Vancomycin(*) 750 MG in NS 0.9% 250 ML* 250 ML IVPB SCH ×2 (09:57→14:47)
[2017-11-24] MEDS: Ketorolac INJ* 15 MG/ML 1 ML VIAL IV PUSH PRN (10:06)
--- NOTE | 2017-11-24 10:28 | PN ---
Progress Note - Progress Note Date of Service: 11/24/17 SOAP: Subjective: Pt states that he is doing well. He has no pain. He denies CP/SOB, F/C or calf pain. Objective: PE: 67 y/o WDWN M NAD, A&O x 3, sitting comfortably in chair RLE- dressing c/d/i, AARON with minimal drainage, knee NT, calf NT, NVI distally Vital Signs Temp Pulse Resp BP Pulse Ox 98.0 F 86 18 159/71 94 11/24/17 07:31 11/24/17 07:31 11/24/17 08:42 11/24/17 07:31 11/24/17 08:20 Laboratory Results - last 24 hr 11/23/17 11/23/17 11/24/17 11:31 16:06 05:02 WBC 8.8 RBC 3.78 L Hgb 9.6 L Hct 30 L MCV 78 L MCH 26 L MCHC 33 RDW 15 Plt Count 347 MPV 7.8 Neut % (Auto) 67.5 Lymph % (Auto) 19.8 L [place] % (Auto) 11.0 H Eos % (Auto) 1.2 Baso % (Auto) 0.5 Absolute Neuts (auto) 6.0 Absolute Lymphs (auto) 1.7 Absolute Monos (auto) 1.0 H Absolute Eos (auto) 0.1 Absolute Basos (auto) 0 Absolute Nucleated RBC 0 Nucleated RBC % 0 BUN Creatinine Est GFR ( Amer) Est GFR (Non-Af Amer) POC Glucose (mg/dL) 199 H 294 H Vancomycin Trough 11/24/17 11/24/17 07:45 08:25 WBC RBC Hgb Hct MCV MCH MCHC RDW Plt Count MPV Neut % (Auto) Lymph % (Auto) [place] % (Auto) Eos % (Auto) Baso % (Auto) Absolute Neuts (auto) Absolute Lymphs (auto) Absolute Monos (auto) Absolute Eos (auto) Absolute Basos (auto) Absolute Nucleated RBC Nucleated RBC % BUN 24 Creatinine 1.38 H Est GFR ( Amer) 66.5 Est GFR (Non-Af Amer) 51.7 POC Glucose (mg/dL) 309 H Vancomycin Trough 20.1 Assessment: Stable S/P R BKA by Dr Sanon 11/22. POD 2 Plan: - Per ID: abx day 14 since presumed negative BC, MICAH negative. Will DC vanco , it will be therapeutic through 11/27. - drain pulled today -NWB RLE - Cont PT/ OT -Cont heparin for DVT prophylaxis -F/U 14 days post op, keep dressing clean dry and intact -Poss DC to [facility] on Sunday if stable
--- NOTE | 2017-11-24 13:53 | PN ---
Subjective Date of Service: 11/24/17 Interval History: Mr. Subramanian reports felling better today. His appetite has improved, denies sore throat or odynophagia. Has been using a wheelchair to get around the halls. Denies any pain at RLE stump, fever or chills. No chest pain, palpitations or SOB. He was seen by ortho team earlier, recommended 1 month coverage for DVT prophylaxis. Family History: Unchanged from Admission Social History: Unchanged from Admission Past Medical History: Unchanged from Admission Objective Active Medications: Acetaminophen (Tylenol Tab*) 650 mg PO Q4H PRN PRN Reason: FEVER/PAIN Last Admin: 11/22/17 20:55 Dose: 650 mg Amlodipine Besylate (Norvasc Tab*) 5 mg PO DAILY [facility] Last Admin: 11/24/17 08:43 Dose: 5 mg Benzonatate (Tessalon Cap*) 200 mg PO TID PRN PRN Reason: cough Last Admin: 11/20/17 12:09 Dose: 200 mg Bisacodyl (Dulcolax Supp*) 10 mg [place] DAILY PRN PRN Reason: CONSTIPATION Cyclobenzaprine HCl (Flexeril Tab*) 10 mg PO TID PRN PRN Reason: SPASMS Last Admin: 11/23/17 10:15 Dose: 10 mg Dextrose (D50w Syringe 50 Ml*) 12.5 gm IV PUSH .FOR FS < 60 - SS PRN PRN Reason: FS < 60 Diphenhydramine HCl (Benadryl Po*) 25 mg PO Q8H PRN PRN Reason: ITCHING Last Admin: 11/22/17 09:48 Dose: 25 mg Docusate Sodium (Colace Cap*) 200 mg PO BID PRN PRN Reason: CONSTIPATION Famotidine (Pepcid Tab*) 20 mg PO BID [facility] Last Admin: 11/24/17 08:40 Dose: 20 mg Gabapentin (Neurontin Cap(*)) 300 mg PO 0900,2100 [facility] Last Admin: 11/24/17 08:42 Dose: 300 mg Guaifenesin (Mucinex*) 600 mg PO BID [facility] Last Admin: 11/24/17 08:43 Dose: 600 mg Heparin Sodium (Porcine) (Heparin Vial(*)) 5,000 units SUBCUT Q8HR [facility] Last Admin: 11/24/17 05:08 Dose: 5,000 units Vancomycin HCl 750 mg/ Sodium (Chloride) 250 mls @ 166.667 mls/hr IVPB 0300, 1500 [facility] Stop: 11/25/17 23:59 Insulin Human Lispro (Humalog*) 0 units SUBCUT [facility] PRN Reason: Protocol Last Admin: 11/24/17 11:55 Dose: Not Given Ketorolac Tromethamine (Toradol Inj*) 15 mg IV PUSH Q6H PRN PRN Reason: PAIN Last Admin: 11/24/17 10:06 Dose: 15 mg Lactulose (Lactulose*) 30 ml PO DAILY [facility] Last Admin: 11/24/17 08:42 Dose: 30 ml Lisinopril (Prinivil Tab*) 10 mg PO DAILY [facility] Last Admin: 11/24/17 08:43 Dose: 10 mg Magnesium Oxide (Magox 400 Tab*) 400 mg PO DAILY [facility] Last Admin: 11/24/17 08:43 Dose: 400 mg Melatonin (Melatonin (Nf)) 3 mg PO BEDTIME [facility] Last Admin: 11/23/17 20:47 Dose: 3 mg Metoprolol Tartrate (Lopressor Tab*) 25 mg PO BID [facility] Last Admin: 11/24/17 08:43 Dose: 25 mg Morphine Sulfate (Morphine Vial*) 4 mg IV Q4H PRN PRN Reason: PAIN Ondansetron HCl (Zofran Inj*) 4 mg IV Q4H PRN PRN Reason: NAUSEA/VOMITING Oxycodone/Acetaminophen (Percocet 5/325 Tab*) 2 tab PO Q6H PRN PRN Reason: PAIN Last Admin: 11/24/17 13:09 Dose: 2 tab Pharmacy Consult (Vancomycin Per Pharmacy*) 1 note FOLLOW UP . PRN PRN Reason: PER PROTOCOL Polyethylene Glycol/Electrolytes (Miralax*) 17 gm PO DAILY [facility] Last Admin: 11/24/17 08:44 Dose: 17 gm Throat Lozenges (Chloraseptic Bruno*) 1 bruno PO Q2H PRN PRN Reason: SORE THROAT Last Admin: 11/21/17 03:56 Dose: 1 bruno Warfarin Sodium (Coumadin Tab(*)) 7.5 mg PO ONCE@1700 ONE PRN Reason: Protocol Stop: 11/24/17 17:01 Vital Signs - 8 hr 11/24/17 11/24/17 11/24/17 06:41 07:31 08:00 Temperature 98.0 F Pulse Rate 86 Respiratory 18 18 20 Rate Blood Pressure 159/71 (mmHg) O2 Sat by Pulse 97 Oximetry 11/24/17 11/24/17 11/24/17 08:20 08:41 08:42 Temperature Pulse Rate Respiratory 18 18 Rate Blood Pressure (mmHg) O2 Sat by Pulse 94 Oximetry 11/24/17 11/24/17 11/24/17 11:10 11:16 13:09 Temperature 98.1 F Pulse Rate 78 Respiratory 18 18 20 Rate Blood Pressure 178/78 (mmHg) O2 Sat by Pulse 98 Oximetry Oxygen Devices in Use Now: None Appearance: Eating lunch in his bed, appears comfortable and in NAD. Eyes: No Scleral Icterus, PERRLA Ears/Nose/Mouth/Throat: Clear Oropharnyx, Mucous Membranes Moist Neck: NL Appearance and Movements; NL JVP, Trachea Midline Respiratory: Symmetrical Chest Expansion and Respiratory Effort, Clear to Auscultation Cardiovascular: NL Sounds; No Murmurs; No JVD, RRR Abdominal: NL Sounds; No Tenderness; No Distention Extremities: - - RLE stump with clean and dry SHAHEEN dressing. and a posterior splint. No contracture noted. Skin: - Neurological: Alert and Oriented x 3, NL Sensation, NL Muscle Strength and Tone Nutrition: Taking PO's Result Diagrams: 11/24/17 05:02 11/24/17 08:25 Additional Lab and Data: . Microbiology and Other Data: . Diagnostic Imaging: . EKG Data: . Assess/Plan/Problems-Billing Assessment: Mr. Subramanian is a 67 y.o male with a history of DM, HTN and osteomylitis with poor wound healing on the right foot and possible sepsis, who is POD#2 s/p right BKA, doing well. - Patient Problems (1) Sepsis Current Visit: Yes Status: Acute Comment: Patient meets criteria for sepsis without septic shock. He also met criteria for sepsis upon admission, likely secondary to osteomylitis Vanco has been stopped per ID, levels should provide coverage until 11/27 His fever has ipmroved, HR normalized and WBC is normal (2) Osteomyelitis Current Visit: No Status: Acute Comment: Ortho following plan for BKA POD#2, doing very well Pain controlled (3) Fever Current Visit: Yes Status: Acute Comment: Met criteria for sepsis with accompanied tachycardia Fever and other symptoms resolved. WBC normalized URI symptoms improved (4) Rash Current Visit: Yes Status: Acute Comment: Likely drug rash Continue benadryl 25 mg po as needed for itching Improved purpuric rash to left lower leg (5) Diabetes Current Visit: No Status: Acute Comment: Lispro SS and fingersticks Moderate control. A1c 8.8 in 07/2017 (6) HTN (hypertension) Current Visit: No Status: Acute Comment: Will continue lisinopril postoperatively Intermittently hypertensive. Normotensive today. (7) Tobacco abuse Current Visit: No Status: Acute Comment: - nicotine patch (8) Upper respiratory infection Current Visit: Yes Status: Acute Comment: Resolved. No longer an issue for post-op period (9) DVT prophylaxis Current Visit: No Status: Acute Comment: Heparin SubQ will be resumed Per ortho team, needs to have DVT prophylaxis coverage for 1 month post-op. Will intiate Warfarin therapy tonight, check INR on Sunday. (10) Full code status Current Visit: No Status: Acute Status and Disposition: Inpatient. Anticipate discharge to [facility] bed when medically stable, hopefully by Sunday.
[2017-11-24] MEDS ORDERED: Warfarin TAB(*) 7.5 MG PO ONE (17:00)
[2017-11-24] MEDS: CMCS Melatonin (NF) 3 MG TAB PO SCH (22:03)
[2017-11-25] MEDS: Vancomycin(*) 750 MG in NS 0.9% 250 ML* 250 ML IVPB SCH ×2 (03:16→15:16)
[2017-11-25] MEDS: Heparin VIAL(*) 5000 UNITS/ML VIAL (FIVE THOUSAND) SUBCUT SCH ×3 (05:04→21:31)
[2017-11-25] MEDS: Ketorolac INJ* 15 MG/ML 1 ML VIAL IV PUSH PRN (07:53)
[2017-11-25] MEDS: Gabapentin CAP(*) 300 MG PO SCH ×2 (07:56→21:29)
[2017-11-25] MEDS: Famotidine TAB* 20 MG PO SCH ×2 (07:57→21:30)
[2017-11-25] MEDS: amLODIPine TAB* 5 MG PO SCH (07:57)
[2017-11-25] MEDS: Lisinopril TAB* 10 MG PO SCH (07:57)
[2017-11-25] MEDS: Metoprolol Tartrate TAB* 25 MG PO SCH ×2 (07:57→21:30)
[2017-11-25] MEDS: guaiFENesin ER TAB 600 MG PO SCH ×2 (07:57→21:30)
[2017-11-25] MEDS: Magnesium Oxide TAB* 400 MG PO SCH (07:57)
[2017-11-25] MEDS: Polyethylene Glycol 3350* 17 GM PACKET PO SCH (07:58)
[2017-11-25] MEDS: Insulin LISPRO* 1 UNITS UNIT SUBCUT SCH ×3 (08:42→17:51)
[2017-11-25] MEDS: oxyCODONE/Acetamin 5/325 MG* TAB PO PRN (11:46)
--- NOTE | 2017-11-25 13:58 | PN ---
Progress Note - Progress Note Date of Service: 11/25/17 SOAP: Subjective: Pt sitting up in bed eating breakfast. No complaint of pain. Denies CP, SOB, F/ C. Objective: Dressing C/D/I. No edema. NVI distally Vital Signs: Temp Pulse Resp BP Pulse Ox 98.0 F 70 18 156/67 97 11/25/17 11:36 11/25/17 11:36 11/25/17 11:46 11/25/17 11:36 11/25/17 11:36 Laboratory Last Values WBC 8.8 10^3/ul (3.5-10.8) 11/24/17 05:02 RBC 3.78 10^6/ul (4.0-5.4) L 11/24/17 05:02 Hgb 9.6 g/dl (14.0-18.0) L 11/24/17 05:02 Hct 30 % (42-52) L 11/24/17 05:02 MCV 78 fL (80-94) L 11/24/17 05:02 MCH 26 pg (27-31) L 11/24/17 05:02 MCHC 33 g/dl (31-36) 11/24/17 05:02 RDW 15 % (10.5-15) 11/24/17 05:02 Plt Count 347 10^3/ul (150-450) 11/24/17 05:02 MPV 7.8 um3 (7.4-10.4) 11/24/17 05:02 Neut % (Auto) 67.5 % (38-83) 11/24/17 05:02 Lymph % (Auto) 19.8 % (25-47) L 11/24/17 05:02 [place] % (Auto) 11.0 % (0-7) H 11/24/17 05:02 Eos % (Auto) 1.2 % (0-6) 11/24/17 05:02 Baso % (Auto) 0.5 % (0-2) 11/24/17 05:02 Absolute Neuts (auto) 6.0 10^3/ul (1.5-7.7) 11/24/17 05:02 Absolute Lymphs (auto) 1.7 10^3/ul (1.0-4.8) 11/24/17 05:02 Absolute Monos (auto) 1.0 10^3/ul (0-0.8) H 11/24/17 05:02 Absolute Eos (auto) 0.1 10^3/ul (0-0.6) 11/24/17 05:02 Absolute Basos (auto) 0 10^3/ul (0-0.2) 11/24/17 05:02 Absolute Nucleated RBC 0 10^3/ul 11/24/17 05:02 Nucleated RBC % 0 11/24/17 05:02 ESR 99 mm/Hr (0-40) H 11/15/17 21:43 INR (Anticoag Therapy) 1.01 (0.77-1.02) 11/22/17 05:33 APTT 30.7 seconds (26.0-36.3) 11/22/17 05:33 Sodium 135 mmol/L (139-145) L 11/23/17 05:02 Potassium 3.9 mmol/L (3.5-5.0) 11/23/17 05:02 Chloride 101 mmol/L (101-111) 11/23/17 05:02 Carbon Dioxide 28 mmol/L (22-32) 11/23/17 05:02 Anion Gap 6 mmol/L (2-11) 11/23/17 05:02 BUN 24 mg/dL (6-24) 11/24/17 08:25 Creatinine 1.42 mg/dL (0.67-1.17) H 11/25/17 05:05 Est GFR ( Amer) 64.3 (>60) 11/25/17 05:05 Est GFR (Non-Af Amer) 50.0 (>60) 11/25/17 05:05 BUN/Creatinine Ratio 17.5 (8-20) 11/23/17 05:02 Glucose 134 mg/dL (70-100) H 11/23/17 05:02 POC Glucose (mg/dL) 167 mg/dL (70-100) H 11/25/17 12:28 POC Glucose Confirm 140 mg/dL (70-100) H 11/19/17 08:01 Lactic Acid 1.1 mmol/L (0.5-2.0) 11/15/17 21:43 Calcium 8.1 mg/dL (8.6-10.3) L 11/23/17 05:02 Magnesium 2.1 mg/dL (1.9-2.7) 11/22/17 05:33 C-Reactive Protein 134.34 mg/L (< 5.00) H 11/22/17 05:33 B-Natriuretic Peptide 327 pg/mL (-100) H 11/18/17 06:57 Urine Color Yellow 11/16/17 00:18 Urine Appearance Clear 11/16/17 00:18 Urine pH 6.0 (5-9) 11/16/17 00:18 Ur Specific [place] 1.013 (1.010-1.030) 11/16/17 00:18 Urine Protein 2+(100 mg/dl) (Negative) A 11/16/17 00:18 Urine Ketones Negative (Negative) 11/16/17 00:18 Urine Blood 3+ (Negative) A 11/16/17 00:18 Urine Nitrate Negative (Negative) 11/16/17 00:18 Urine Bilirubin Negative (Negative) 11/16/17 00:18 Urine Urobilinogen Negative (Negative) 11/16/17 00:18 Ur Leukocyte Esterase Trace (Negative) A 11/16/17 00:18 Urine WBC (Auto) 2+(11-20/hpf) (Absent) A 11/16/17 00:18 Urine RBC (Auto) 3+(>10/hpf) (Absent) A 11/16/17 00:18 Urine Bacteria Absent (Absent) 11/16/17 00:18 Urine Glucose Negative (Negative) 11/16/17 00:18 Vancomycin Trough 20.1 mcg/mL 11/24/17 08:25 Influenza A (Rapid) Negative (Negative) 11/18/17 12:44 Influenza B (Rapid) Negative (Negative) 11/18/17 12:44 Assessment: 67 yo male s/p right BKA by Dr. Sanon 11/22/17 POD#3 Plan: OOB OT/PT NWB RLE Pain Control DVT prophylaxis - Heparin. Recommend 1 month of chemical DVT prophylaxis per Dr. Sanon IV abx per ID Possible DC to [facility] swing tomorrow
[2017-11-25] MEDS: Acetaminophen TAB* 325 MG PO PRN (15:15)
[2017-11-25] MEDS ORDERED: Lisinopril TAB* 10 MG PO ONE (16:41)
--- NOTE | 2017-11-25 17:40 | PN ---
Subjective Date of Service: 11/25/17 Interval History: Mr. Subramanian reports doing well today. He denies any pain, fever or chills. Has been getting around on his wheelchair. He is ready for discharge tomorrow to [facility]. Family History: Unchanged from Admission Social History: Unchanged from Admission Past Medical History: Unchanged from Admission Objective Active Medications: Acetaminophen (Tylenol Tab*) 650 mg PO Q4H PRN PRN Reason: FEVER/PAIN Last Admin: 11/25/17 15:15 Dose: 650 mg Amlodipine Besylate (Norvasc Tab*) 5 mg PO DAILY [facility] Last Admin: 11/25/17 07:57 Dose: 5 mg Benzonatate (Tessalon Cap*) 200 mg PO TID PRN PRN Reason: cough Last Admin: 11/20/17 12:09 Dose: 200 mg Bisacodyl (Dulcolax Supp*) 10 mg [place] DAILY PRN PRN Reason: CONSTIPATION Cyclobenzaprine HCl (Flexeril Tab*) 10 mg PO TID PRN PRN Reason: SPASMS Last Admin: 11/23/17 10:15 Dose: 10 mg Dextrose (D50w Syringe 50 Ml*) 12.5 gm IV PUSH .FOR FS < 60 - SS PRN PRN Reason: FS < 60 Diphenhydramine HCl (Benadryl Po*) 25 mg PO Q8H PRN PRN Reason: ITCHING Last Admin: 11/22/17 09:48 Dose: 25 mg Docusate Sodium (Colace Cap*) 200 mg PO BID PRN PRN Reason: CONSTIPATION Famotidine (Pepcid Tab*) 20 mg PO BID [facility] Last Admin: 11/25/17 07:57 Dose: 20 mg Gabapentin (Neurontin Cap(*)) 300 mg PO 0900,2100 [facility] Last Admin: 11/25/17 07:56 Dose: 300 mg Guaifenesin (Mucinex*) 600 mg PO BID [facility] Last Admin: 11/25/17 07:57 Dose: 600 mg Heparin Sodium (Porcine) (Heparin Vial(*)) 5,000 units SUBCUT Q8HR [facility] Last Admin: 11/25/17 14:17 Dose: 5,000 units Vancomycin HCl 750 mg/ Sodium (Chloride) 250 mls @ 166.667 mls/hr IVPB 0300, 1500 [facility] Stop: 11/25/17 23:59 Last Admin: 11/25/17 15:16 Dose: 166.667 mls/hr Insulin Human Lispro (Humalog*) 0 units SUBCUT AC [facility] PRN Reason: Protocol Last Admin: 11/25/17 12:33 Dose: 2 units Ketorolac Tromethamine (Toradol Inj*) 15 mg IV PUSH Q6H PRN PRN Reason: PAIN Last Admin: 11/25/17 07:53 Dose: 15 mg Lactulose (Lactulose*) 30 ml PO DAILY [facility] Last Admin: 11/25/17 07:58 Dose: Not Given Lisinopril (Prinivil Tab*) 10 mg PO DAILY [facility] Last Admin: 11/25/17 07:57 Dose: 10 mg Magnesium Oxide (Magox 400 Tab*) 400 mg PO DAILY [facility] Last Admin: 11/25/17 07:57 Dose: 400 mg Melatonin (Melatonin (Nf)) 3 mg PO BEDTIME [facility] Last Admin: 11/24/17 22:03 Dose: 3 mg Metoprolol Tartrate (Lopressor Tab*) 25 mg PO BID [facility] Last Admin: 11/25/17 07:57 Dose: 25 mg Morphine Sulfate (Morphine Vial*) 4 mg IV Q4H PRN PRN Reason: PAIN Ondansetron HCl (Zofran Inj*) 4 mg IV Q4H PRN PRN Reason: NAUSEA/VOMITING Oxycodone/Acetaminophen (Percocet 5/325 Tab*) 2 tab PO Q6H PRN PRN Reason: PAIN Last Admin: 11/25/17 11:46 Dose: 2 tab Pharmacy Consult (Vancomycin Per Pharmacy*) 1 note FOLLOW UP . PRN PRN Reason: PER PROTOCOL Polyethylene Glycol/Electrolytes (Miralax*) 17 gm PO DAILY [facility] Last Admin: 11/25/17 07:58 Dose: Not Given Throat Lozenges (Chloraseptic Bruno*) 1 bruno PO Q2H PRN PRN Reason: SORE THROAT Last Admin: 11/21/17 03:56 Dose: 1 bruno Warfarin Sodium (Coumadin Tab(*)) 5 mg PO ONCE@1700 ONE PRN Reason: Protocol Stop: 11/25/17 18:01 Vital Signs - 8 hr 11/25/17 11/25/17 11/25/17 10:15 10:35 11:36 Temperature 98.0 F Pulse Rate 97 70 Respiratory 18 14 Rate Blood Pressure 151/87 156/67 (mmHg) O2 Sat by Pulse 97 Oximetry 11/25/17 11/25/17 11/25/17 11:46 13:56 15:12 Temperature 98.5 F Pulse Rate 81 Respiratory 18 20 20 Rate Blood Pressure 171/82 (mmHg) O2 Sat by Pulse 95 Oximetry Oxygen Devices in Use Now: None Appearance: Appears comfortable and in NAD. Eyes: No Scleral Icterus, PERRLA Ears/Nose/Mouth/Throat: Clear Oropharnyx, Mucous Membranes Moist Neck: NL Appearance and Movements; NL JVP, Trachea Midline Respiratory: Symmetrical Chest Expansion and Respiratory Effort, Clear to Auscultation Cardiovascular: NL Sounds; No Murmurs; No JVD, RRR Abdominal: NL Sounds; No Tenderness; No Distention Extremities: No Edema Neurological: Alert and Oriented x 3, NL Sensation, NL Muscle Strength and Tone Nutrition: Taking PO's Result Diagrams: 11/24/17 05:02 11/25/17 05:05 Additional Lab and Data: . Microbiology and Other Data: . Diagnostic Imaging: . EKG Data: . Assess/Plan/Problems-Billing Assessment: Mr. Subramanian is a 67 y.o male with a history of DM, HTN and osteomylitis with poor wound healing on the right foot and possible sepsis, who is POD#2 s/p right BKA, doing well. - Patient Problems (1) Sepsis Current Visit: Yes Status: Acute Comment: Patient meets criteria for sepsis without septic shock. He also met criteria for sepsis upon admission, likely secondary to osteomylitis Vanco has been stopped per ID, levels should provide coverage until 11/27 His fever has ipmroved, HR normalized and WBC is normal (2) Osteomyelitis Current Visit: No Status: Acute Comment: Ortho following plan for BKA POD#3, doing very well Pain controlled (3) Fever Current Visit: Yes Status: Acute Comment: Met criteria for sepsis with accompanied tachycardia Fever and other symptoms resolved. WBC normalized URI symptoms improved (4) Rash Current Visit: Yes Status: Acute Comment: Likely drug rash Continue benadryl 25 mg po as needed for itching Improved purpuric rash to left lower leg (5) Diabetes Current Visit: No Status: Acute Comment: Lispro SS and fingersticks Moderate control. A1c 8.8 in 07/2017 (6) HTN (hypertension) Current Visit: No Status: Acute Comment: Will continue lisinopril postoperatively Intermittently hypertensive today, given another dose of Lisinopril (7) Tobacco abuse Current Visit: No Status: Acute Comment: - nicotine patch (8) Upper respiratory infection Current Visit: Yes Status: Acute Comment: Resolved. No longer an issue for post-op period (9) DVT prophylaxis Current Visit: No Status: Acute Comment: Heparin SubQ will be resumed Per ortho team, needs to have DVT prophylaxis coverage for 1 month post-op. Will intiate Warfarin therapy 5mg tonight, check INR on Sunday. (10) Full code status Current Visit: No Status: Acute Status and Disposition: Inpatient. Anticipate discharge to [facility] bed when medically stable, hopefully by Sunday. Check INR on 11/26 Resume Coumadin upon discharge, INR checks q3 days with dose adjustment until therapeutic
[2017-11-25] MEDS ORDERED: Warfarin TAB(*) 5 MG PO ONE (18:00)
[2017-11-25] MEDS: CMCS Melatonin (NF) 3 MG TAB PO SCH (21:30)
[2017-11-25] MEDS ORDERED: Furosemide TAB* 20 MG PO ONE (23:36)
[2017-11-26] MEDS ORDERED: amLODIPine TAB* 5 MG PO ONE (04:05)
[2017-11-26] MEDS: oxyCODONE/Acetamin 5/325 MG* TAB PO PRN ×3 (04:24→17:03)
[2017-11-26] MEDS: Heparin VIAL(*) 5000 UNITS/ML VIAL (FIVE THOUSAND) SUBCUT SCH ×3 (05:10→22:52)
[2017-11-26 05:37] LABS: INR 1.11 (0.77-1.02)
[2017-11-26] MEDS ORDERED: amLODIPine TAB* 5 MG PO SCH (09:00)
[2017-11-26] MEDS: Gabapentin CAP(*) 300 MG PO SCH ×2 (09:49→22:49)
[2017-11-26] MEDS: guaiFENesin ER TAB 600 MG PO SCH ×2 (09:49→22:49)
[2017-11-26] MEDS: Magnesium Oxide TAB* 400 MG PO SCH (09:50)
[2017-11-26] MEDS: Famotidine TAB* 20 MG PO SCH ×2 (09:50→22:49)
[2017-11-26] MEDS: Lisinopril TAB* 10 MG PO SCH (09:50)
[2017-11-26] MEDS: Metoprolol Tartrate TAB* 25 MG PO SCH ×2 (09:50→22:49)
[2017-11-26] MEDS: Insulin LISPRO* 1 UNITS UNIT SUBCUT SCH ×3 (09:52→17:57)
[2017-11-26] MEDS: Polyethylene Glycol 3350* 17 GM PACKET PO SCH (09:53)
--- NOTE | 2017-11-26 10:52 | PN ---
Progress Note - Progress Note Date of Service: 11/26/17 SOAP: Subjective: 67 y/o male s/p right BKA by Dr. Sanon 11/22/17 POD#4. Patient without complaints, would like to be D/Cd. Pain controlled. VSS, AO. Objective: General- Well appearing, resting comfortably in bed, NAD, AO MSK- Dressing intact, non-tender, no induration, no odor, swelling. Vital Signs Temp 97.9 F 11/26/17 07:26 Pulse 84 11/26/17 07:26 Resp 16 11/26/17 10:50 BP 156/72 11/26/17 07:26 Pulse Ox 96 11/26/17 07:26 Intake & Output 11/25/17 11/26/17 11/26/17 18:59 06:59 18:59 Intake Total 1590 850 Output Total 1300 1700 200 Balance 290 -850 -200 Intake: IV Fluids 250 Vancomycin 250 Oral 1340 850 Output: Urine 1300 1700 200 Other: # Voids 1 Assessment: 67 yo male s/p right BKA by Dr. Sanon 11/22/17 POD#4 Plan: OOB OT/PT NWB RLE Pain Control- working well DVT prophylaxis - Heparin, coumadin IV abx per ID Possible DC to [facility] swing tomorrow, evaluation for elevated creatinine with hosp today. Acetaminophen (Tylenol Tab*) 650 mg PO Q4H PRN PRN Reason: FEVER/PAIN Last Admin: 11/25/17 15:15 Dose: 650 mg Amlodipine Besylate (Norvasc Tab*) 10 mg PO DAILY [facility] Benzonatate (Tessalon Cap*) 200 mg PO TID PRN PRN Reason: cough Last Admin: 11/20/17 12:09 Dose: 200 mg Bisacodyl (Dulcolax Supp*) 10 mg [place] DAILY PRN PRN Reason: CONSTIPATION Cyclobenzaprine HCl (Flexeril Tab*) 10 mg PO TID PRN PRN Reason: SPASMS Last Admin: 11/23/17 10:15 Dose: 10 mg Dextrose (D50w Syringe 50 Ml*) 12.5 gm IV PUSH .FOR FS < 60 - SS PRN PRN Reason: FS < 60 Diphenhydramine HCl (Benadryl Po*) 25 mg PO Q8H PRN PRN Reason: ITCHING Last Admin: 11/22/17 09:48 Dose: 25 mg Docusate Sodium (Colace Cap*) 200 mg PO BID PRN PRN Reason: CONSTIPATION Famotidine (Pepcid Tab*) 20 mg PO BID [facility] Last Admin: 11/26/17 09:50 Dose: 20 mg Gabapentin (Neurontin Cap(*)) 300 mg PO 0900,2100 [facility] Last Admin: 11/26/17 09:49 Dose: 300 mg Guaifenesin (Mucinex*) 600 mg PO BID [facility] Last Admin: 11/26/17 09:49 Dose: 600 mg Heparin Sodium (Porcine) (Heparin Vial(*)) 5,000 units SUBCUT Q8HR [facility] Last Admin: 11/26/17 05:10 Dose: 5,000 units Insulin Human Lispro (Humalog*) 0 units SUBCUT AC [facility] PRN Reason: Protocol Last Admin: 11/26/17 09:52 Dose: 1 units Ketorolac Tromethamine (Toradol Inj*) 15 mg IV PUSH Q6H PRN PRN Reason: PAIN Last Admin: 11/25/17 07:53 Dose: 15 mg Lactulose (Lactulose*) 30 ml PO DAILY [facility] Last Admin: 11/26/17 09:50 Dose: Not Given Lisinopril (Prinivil Tab*) 10 mg PO DAILY [facility] Last Admin: 11/26/17 09:50 Dose: 10 mg Magnesium Oxide (Magox 400 Tab*) 400 mg PO DAILY [facility] Last Admin: 11/26/17 09:50 Dose: 400 mg Melatonin (Melatonin (Nf)) 3 mg PO BEDTIME [facility] Last Admin: 11/25/17 21:30 Dose: 3 mg Metoprolol Tartrate (Lopressor Tab*) 25 mg PO BID [facility] Last Admin: 11/26/17 09:50 Dose: 25 mg Morphine Sulfate (Morphine Vial*) 4 mg IV Q4H PRN PRN Reason: PAIN Ondansetron HCl (Zofran Inj*) 4 mg IV Q4H PRN PRN Reason: NAUSEA/VOMITING Oxycodone/Acetaminophen (Percocet 5/325 Tab*) 2 tab PO Q6H PRN PRN Reason: PAIN Last Admin: 11/26/17 10:50 Dose: 2 tab Polyethylene Glycol/Electrolytes (Miralax*) 17 gm PO DAILY [facility] Last Admin: 11/26/17 09:53 Dose: Not Given Throat Lozenges (Chloraseptic Bruno*) 1 bruno PO Q2H PRN PRN Reason: SORE THROAT Last Admin: 11/21/17 03:56 Dose: 1 bruno
--- NOTE | 2017-11-26 11:08 | PN ---
Subjective Date of Service: 11/26/17 Interval History: Patient offers no complaints. He reports pain is well controlled. Good appetite. No SOB/CP. Urinating w/o difficulty. no nausea. NO flank pain/dysuria or increased frequency. No hematuria. He hopes to be discharged today Family History: Unchanged from Admission Social History: Unchanged from Admission Past Medical History: Unchanged from Admission Objective Active Medications: Acetaminophen (Tylenol Tab*) 650 mg PO Q4H PRN PRN Reason: FEVER/PAIN Last Admin: 11/25/17 15:15 Dose: 650 mg Amlodipine Besylate (Norvasc Tab*) 10 mg PO DAILY [facility] Benzonatate (Tessalon Cap*) 200 mg PO TID PRN PRN Reason: cough Last Admin: 11/20/17 12:09 Dose: 200 mg Bisacodyl (Dulcolax Supp*) 10 mg [place] DAILY PRN PRN Reason: CONSTIPATION Cyclobenzaprine HCl (Flexeril Tab*) 10 mg PO TID PRN PRN Reason: SPASMS Last Admin: 11/23/17 10:15 Dose: 10 mg Dextrose (D50w Syringe 50 Ml*) 12.5 gm IV PUSH .FOR FS < 60 - SS PRN PRN Reason: FS < 60 Diphenhydramine HCl (Benadryl Po*) 25 mg PO Q8H PRN PRN Reason: ITCHING Last Admin: 11/22/17 09:48 Dose: 25 mg Docusate Sodium (Colace Cap*) 200 mg PO BID PRN PRN Reason: CONSTIPATION Famotidine (Pepcid Tab*) 20 mg PO BID [facility] Last Admin: 11/26/17 09:50 Dose: 20 mg Gabapentin (Neurontin Cap(*)) 300 mg PO 0900,2100 [facility] Last Admin: 11/26/17 09:49 Dose: 300 mg Guaifenesin (Mucinex*) 600 mg PO BID [facility] Last Admin: 11/26/17 09:49 Dose: 600 mg Heparin Sodium (Porcine) (Heparin Vial(*)) 5,000 units SUBCUT Q8HR [facility] Last Admin: 11/26/17 05:10 Dose: 5,000 units Insulin Human Lispro (Humalog*) 0 units SUBCUT AC [facility] PRN Reason: Protocol Last Admin: 11/26/17 09:52 Dose: 1 units Ketorolac Tromethamine (Toradol Inj*) 15 mg IV PUSH Q6H PRN PRN Reason: PAIN Last Admin: 11/25/17 07:53 Dose: 15 mg Lactulose (Lactulose*) 30 ml PO DAILY [facility] Last Admin: 11/26/17 09:50 Dose: Not Given Lisinopril (Prinivil Tab*) 10 mg PO DAILY [facility] Last Admin: 11/26/17 09:50 Dose: 10 mg Magnesium Oxide (Magox 400 Tab*) 400 mg PO DAILY [facility] Last Admin: 11/26/17 09:50 Dose: 400 mg Melatonin (Melatonin (Nf)) 3 mg PO BEDTIME [facility] Last Admin: 11/25/17 21:30 Dose: 3 mg Metoprolol Tartrate (Lopressor Tab*) 25 mg PO BID [facility] Last Admin: 11/26/17 09:50 Dose: 25 mg Morphine Sulfate (Morphine Vial*) 4 mg IV Q4H PRN PRN Reason: PAIN Ondansetron HCl (Zofran Inj*) 4 mg IV Q4H PRN PRN Reason: NAUSEA/VOMITING Oxycodone/Acetaminophen (Percocet 5/325 Tab*) 2 tab PO Q6H PRN PRN Reason: PAIN Last Admin: 11/26/17 10:50 Dose: 2 tab Polyethylene Glycol/Electrolytes (Miralax*) 17 gm PO DAILY [facility] Last Admin: 11/26/17 09:53 Dose: Not Given Throat Lozenges (Chloraseptic Bruno*) 1 bruno PO Q2H PRN PRN Reason: SORE THROAT Last Admin: 11/21/17 03:56 Dose: 1 bruno Vital Signs - 8 hr 11/26/17 11/26/17 11/26/17 03:35 03:38 04:02 Temperature 99.5 F Pulse Rate 85 Respiratory 22 Rate Blood Pressure 177/79 173/76 170/82 (mmHg) O2 Sat by Pulse 98 Oximetry 11/26/17 11/26/17 11/26/17 04:24 06:00 07:26 Temperature 97.9 F Pulse Rate 84 Respiratory 22 18 18 Rate Blood Pressure 156/72 (mmHg) O2 Sat by Pulse 96 Oximetry 11/26/17 11/26/17 11/26/17 09:00 09:49 10:50 Temperature Pulse Rate Respiratory 16 16 16 Rate Blood Pressure (mmHg) O2 Sat by Pulse Oximetry Oxygen Devices in Use Now: None Appearance: chronically ill 67 yo male sitting up in bed A+Ox3 in NAD Eyes: No Scleral Icterus, PERRLA Ears/Nose/Mouth/Throat: NL Teeth, Lips, Gums, Mucous Membranes Moist Neck: NL Appearance and Movements; NL JVP Respiratory: Symmetrical Chest Expansion and Respiratory Effort, Clear to Auscultation Cardiovascular: NL Sounds; No Murmurs; No JVD, RRR, No Edema Abdominal: NL Sounds; No Tenderness; No Distention Extremities: - - 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 Microbiology and Other Data: . Diagnostic Imaging: . EKG Data: . Assess/Plan/Problems-Billing Assessment: Mr. Subramanian is a 67 y.o male with a history of DM, HTN and osteomylitis with poor wound healing on the right foot and possible sepsis, who is POD#2 s/p right BKA, doing well. - Patient Problems (1) Sepsis Comment: Patient met criteria for sepsis without septic shock now resolved, likely secondary to osteomylitis and MSSA Bacteremia Vanco has been stopped per ID, levels should provide coverage until 11/27 Repeat blood cx negative (2) Osteomyelitis Comment: Ortho following plan for BKA POD#4, doing very well Pain controlled (3) ARF (acute renal failure) Comment: - creatinine almost doubled since admission - unclear etiology. Plan to recheck creatinine this am and decide whether to keep the patient or DC him today. If creatinine is higher will start IVFs and send urine to calculate a FENA. - no urinary symptoms. Urine cx negative (4) Diabetes Comment: Lispro SS and fingersticks Moderate control. A1c 8.8 in 07/2017 (5) HTN (hypertension) Code(s): I10 - ESSENTIAL (PRIMARY) HYPERTENSION SNOMED Code(s): 31808244 Comment: Hold lisinopril in the setting of PAWEL Norvasc started this am for consistently high BPs. (6) Tobacco abuse Comment: - nicotine patch (7) DVT prophylaxis Comment: Heparin SubQ will be resumed Per ortho team, needs to have DVT prophylaxis coverage for 1 month post-op. Continue Warfarin 5mg tonight Status and Disposition: Inpatient. Anticipate discharge to [facility] bed when medically stable, possibly today or tomorrow depending on renal function Check INR on 11/27 Resume Coumadin upon discharge, INR checks q2 days with dose adjustment until therapeutic
[2017-11-26 11:09] LABS: EGFR Non-African American 47.3 (>60)
[2017-11-26] MEDS ORDERED: NS 0.9% 1000 ML* 1,000 ML IV SCH (11:30)
[2017-11-26] MEDS: Warfarin TAB(*) 5 MG PO SCH (17:02)
[2017-11-26] MEDS: CMCS Melatonin (NF) 3 MG TAB PO SCH (22:51)
[2017-11-27] MEDS: Heparin VIAL(*) 5000 UNITS/ML VIAL (FIVE THOUSAND) SUBCUT SCH ×3 (06:06→21:20)
[2017-11-27 06:13] LABS: EGFR Non-African American 43.9 (>60)
--- NOTE | 2017-11-27 08:47 | PN ---
Subjective Date of Service: 11/27/17 Interval History: Mr. Subramanian denies complaint today. He specifically denies chest pain, SOB, nausea, or abdominal pain. Family History: Unchanged from Admission Social History: Unchanged from Admission Past Medical History: Unchanged from Admission Objective Active Medications: Acetaminophen (Tylenol Tab*) 650 mg PO Q4H PRN Amlodipine Besylate (Norvasc Tab*) 10 mg PO DAILY [facility] Benzonatate (Tessalon Cap*) 200 mg PO TID PRN Bisacodyl (Dulcolax Supp*) 10 mg [place] DAILY PRN Cyclobenzaprine HCl (Flexeril Tab*) 10 mg PO TID PRN Dextrose (D50w Syringe 50 Ml*) 12.5 gm IV PUSH .FOR FS < 60 - SS PRN Diphenhydramine HCl (Benadryl Po*) 25 mg PO Q8H PRN Docusate Sodium (Colace Cap*) 200 mg PO BID PRN Famotidine (Pepcid Tab*) 20 mg PO BID [facility] Gabapentin (Neurontin Cap(*)) 300 mg PO 0900,2100 [facility] Guaifenesin (Mucinex*) 600 mg PO BID [facility] Heparin Sodium (Porcine) (Heparin Vial(*)) 5,000 units SUBCUT Q8HR [facility] Insulin Human Lispro (Humalog*) 0 units SUBCUT AC [facility] Lactulose (Lactulose*) 30 ml PO DAILY [facility] Magnesium Oxide (Magox 400 Tab*) 400 mg PO DAILY [facility] Melatonin (Melatonin (Nf)) 3 mg PO BEDTIME [facility] Metoprolol Tartrate (Lopressor Tab*) 25 mg PO BID [facility] Morphine Sulfate (Morphine Vial*) 4 mg IV Q4H PRN Ondansetron HCl (Zofran Inj*) 4 mg IV Q4H PRN Oxycodone/Acetaminophen (Percocet 5/325 Tab*) 2 tab PO Q6H PRN Polyethylene Glycol/Electrolytes (Miralax*) 17 gm PO DAILY [facility] Throat Lozenges (Chloraseptic Bruno*) 1 bruno PO Q2H PRN Warfarin Sodium (Coumadin Tab(*)) 5 mg PO DAILY@1700 [facility] Vital Signs: Temp Pulse Resp BP Pulse Ox 99.4 F 81 16 176/76 98 11/27/17 07:40 11/27/17 07:40 11/27/17 07:40 11/27/17 07:40 11/27/17 07:40 Oxygen Devices in Use Now: None Appearance: Male sitting up in bed in NAD Eyes: No Scleral Icterus Ears/Nose/Mouth/Throat: Mucous Membranes Moist Neck: Trachea Midline Respiratory: Symmetrical Chest Expansion and Respiratory Effort, Clear to Auscultation Cardiovascular: NL Sounds; No Murmurs; No JVD, No Edema Abdominal: NL Sounds; No Tenderness; No Distention Lymphatic: No Cervical Adenopathy Extremities: No Edema Skin: - - Purplish patchy rash to B LEs, improving per patient report Neurological: Alert and Oriented x 3, NL Muscle Strength and Tone Nutrition: Taking PO's Result Diagrams: 11/24/17 05:02 11/27/17 05:33 Additional Lab and Data: . Microbiology and Other Data: . Diagnostic Imaging: . EKG Data: . Assess/Plan/Problems-Billing Assessment: Mr. Subramanian is a 67 y.o male with a history of DM, HTN and osteomylitis with poor wound healing on the right foot and sepsis, who is s/p right BKA with post operative course complicated by slowly rising creatinine. - Patient Problems (1) Osteomyelitis Comment: - S/P BKA, ortho following. - Pain controlled (2) ARF (acute renal failure) Comment: - Creatinine continues to rise steadily - unclear etiology. - FeNa 1.8%, consistent with intrinsic cause. Check renal US and new UA for casts. - No urinary symptoms. Urine cx negative. (3) Sepsis Comment: - Resolved. - Patient met criteria for sepsis, secondary to osteomyelitis. - Vanco has been stopped per ID, levels should provide coverage until 11/27 - Repeat blood cx negative (4) Diabetes Comment: - BGs 120-200s. - Lispro SS and fingersticks - A1c 8.8 in 07/2017 (5) HTN (hypertension) Comment: - SBP 140-170s. - Hold lisinopril in the setting of PAWEL. Continue newly started amlodipine 10mg. Increased metoprolol to 50mg BID as well. Will likely need further adjustment outpatient. 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 - Completed 3 days prednisone, continue benadryl 25 mg po as needed for itching. (7) Tobacco abuse Comment: - nicotine patch (8) DVT prophylaxis Comment: - Per ortho team, needs to have DVT prophylaxis coverage for 1 month post-op. - Continue Warfarin 5mg tonight (9) Full code status Comment: Status and Disposition: Inpatient with worsening PAWEL. Plan for [facility] when medically stable.
[2017-11-27] MEDS: amLODIPine TAB* 5 MG PO SCH (09:18)
[2017-11-27] MEDS: Gabapentin CAP(*) 300 MG PO SCH ×2 (09:18→21:16)
[2017-11-27] MEDS: Metoprolol Tartrate TAB* 25 MG PO SCH (09:19)
[2017-11-27] MEDS: Famotidine TAB* 20 MG PO SCH ×2 (09:19→21:16)
[2017-11-27] MEDS: guaiFENesin ER TAB 600 MG PO SCH ×2 (09:19→21:17)
[2017-11-27] MEDS: Magnesium Oxide TAB* 400 MG PO SCH (09:19)
[2017-11-27] MEDS: Insulin LISPRO* 1 UNITS UNIT SUBCUT SCH ×3 (09:20→18:10)
[2017-11-27] MEDS: Polyethylene Glycol 3350* 17 GM PACKET PO SCH (09:21)
[2017-11-27] MEDS: oxyCODONE/Acetamin 5/325 MG* TAB PO PRN ×2 (11:05→18:10)
--- NOTE | 2017-11-27 12:49 | RAD ---
HISTORY: Acute renal insufficiency COMPARISONS: None TECHNIQUE: Multiple transverse and longitudinal ultrasound images were obtained of the kidneys using grayscale and color Doppler imaging. FINDINGS: RIGHT KIDNEY: There is a simple cyst of the upper pole of the right kidney measuring 1.5 x 1.2 x 1.6 cm. There is no hydronephrosis or nephrolithiasis. The right kidney measures 14 x 6.4 x 7.1 cm. LEFT KIDNEY: The left kidney is normal in shape, size, contour, and echogenicity. There is no hydronephrosis or nephrolithiasis. The left kidney measures 14.1 x 6.8 x 6.1 cm. BLADDER: No images are submitted of the bladder. AORTA AND IVC: No images are submitted of the vasculature. RETROPERITONEUM: Unremarkable. OTHER: None. IMPRESSION: 1.6 CM SIMPLE CYST OF THE RIGHT KIDNEY. NO HYDRONEPHROSIS OR NEPHROLITHIASIS.
[2017-11-27 13:32] LABS: Urine Appearance Clear; Urine Blood 2+ (Negative); Urine Color Yellow; Urine Ketones Negative (Negative); Urine Protein 2+(100 mg/dL) (Negative); Urine Specific Gravity 1.012 (1.010-1.030); Urine Urobilinogen Negative (Negative)
--- NOTE | 2017-11-27 14:44 | PN ---
Progress Note - Progress Note Date of Service: 11/27/17 SOAP: Subjective: CC: osteomyelitis HPI: 67 year old man with right leg BKA for gangrene and osteomyelitis. He feels well, pain improved, no fever or diarrhea. Rash fading. Objective: Vital Signs Temp 37.0 C 11/27/17 11:13 Pulse 81 11/27/17 11:13 Resp 18 11/27/17 14:24 BP 147/64 11/27/17 11:13 Pulse Ox 94 11/27/17 11:13 Intake & Output 11/26/17 11/27/17 11/27/17 18:59 06:59 18:59 Intake Total 240 1540 270 Output Total 600 1650 750 Balance -360 -110 -480 Intake: Oral 240 1540 270 Output: Urine 600 1650 750 Other: Estimated Void Medium # Bowel Movements 0 Estimated Stool Amount Medium # Voids 1 Gen: awake, no distress HEENT: no thrush Heart:RRR no murmur Lungs:CTA BL Abd:+BS NTND soft Skin: BL LE palpable and non palpable purpura MSK: R leg incision intact no erythema ASSESMENT: 1: right foot gangrene and acute osteomyelitis due to MSSA s/p R BKA 2. 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 diabetes with neuropathy 4. MSSA bacteremia, resolved PLAN: 1. Continue to observe off of antibiotics; call if redness or wound at amputation site. 2. rash on legs improving, should continue to do so
--- NOTE | 2017-11-27 14:49 | PN ---
Progress Note - Progress Note Date of Service: 11/27/17 SOAP: Subjective: []Patient seen OOB in chair. He feels well and desires discharge. Denies RLE pain, CP, SOB, dizziness, nausea, chills or fever. Objective: [] Vital Signs Temp 98.6 F 11/27/17 11:13 Pulse 81 11/27/17 11:13 Resp 18 11/27/17 14:24 BP 147/64 11/27/17 11:13 Pulse Ox 94 11/27/17 11:13 Intake & Output 11/26/17 11/27/17 11/27/17 18:59 06:59 18:59 Intake Total 240 1540 270 Output Total 600 1650 1050 Balance -360 -110 -780 Intake: Oral 240 1540 270 Output: Urine 600 1650 1050 Other: Estimated Void Medium # Bowel Movements 0 Estimated Stool Amount Medium # Voids 1 General: Well appearing, NAD RLE: Splint CDI. Thigh is soft and no erythema proximally. Assessment: [] 67 yo male s/p right BKA by Dr. Sanno 11/22/17 Plan: OOB OT/PT NWB RLE DVT prophylaxis - Heparin, coumadin -- INR, H&H ordered Off of antibiotics, to call ID & ortho if wound or redness at amputation site. [place] swing when medically ready
[2017-11-27 15:54] LABS: Hematocrit 32 % (42-52); Hemoglobin 10.2 g/dl (14.0-18.0)
[2017-11-27 16:08] LABS: INR 1.44 (0.77-1.02)
[2017-11-27] MEDS: Warfarin TAB(*) 5 MG PO SCH (18:10)
[2017-11-27] MEDS: Metoprolol Tartrate TAB* 50 mg PO SCH (21:17)
[2017-11-27] MEDS: CMCS Melatonin (NF) 3 MG TAB PO SCH (21:22)
[2017-11-28] MEDS: Heparin VIAL(*) 5000 UNITS/ML VIAL (FIVE THOUSAND) SUBCUT SCH (05:20)
[2017-11-28 05:55] LABS: EGFR Non-African American 35.1 (>60)
[2017-11-28] MEDS: Polyethylene Glycol 3350* 17 GM PACKET PO SCH (08:44)
[2017-11-28] MEDS: Gabapentin CAP(*) 300 MG PO SCH (08:44)
[2017-11-28] MEDS: Famotidine TAB* 20 MG PO SCH (08:44)
[2017-11-28] MEDS: amLODIPine TAB* 5 MG PO SCH (08:45)
[2017-11-28] MEDS: Magnesium Oxide TAB* 400 MG PO SCH (08:45)
[2017-11-28] MEDS: guaiFENesin ER TAB 600 MG PO SCH (08:45)
[2017-11-28] MEDS: Metoprolol Tartrate TAB* 50 mg PO SCH (08:45)
[2017-11-28] MEDS: Insulin LISPRO* 1 UNITS UNIT SUBCUT SCH ×2 (08:47→13:02)
[2017-11-28 09:48] LABS: INR 1.48 (0.77-1.02)
--- NOTE | 2017-11-28 11:35 | PN ---
Subjective Date of Service: 11/28/17 Interval History: Mr. Subramanian denies complaint and is adamant about being discharged to [facility] today. He denies chest pain, SOB, nausea, or abdominal pain. Family History: Unchanged from Admission Social History: Unchanged from Admission Past Medical History: Unchanged from Admission Objective Active Medications: Acetaminophen (Tylenol Tab*) 650 mg PO Q4H PRN Amlodipine Besylate (Norvasc Tab*) 10 mg PO DAILY SONJA Benzonatate (Tessalon Cap*) 200 mg PO TID PRN Bisacodyl (Dulcolax Supp*) 10 mg NC DAILY PRN Cyclobenzaprine HCl (Flexeril Tab*) 10 mg PO TID PRN Dextrose (D50w Syringe 50 Ml*) 12.5 gm IV PUSH .FOR FS < 60 - SS PRN Diphenhydramine HCl (Benadryl Po*) 25 mg PO Q8H PRN Docusate Sodium (Colace Cap*) 200 mg PO BID PRN Famotidine (Pepcid Tab*) 20 mg PO BID SONJA Gabapentin (Neurontin Cap(*)) 300 mg PO 0900,2100 SONJA Guaifenesin (Mucinex*) 600 mg PO BID SONJA Heparin Sodium (Porcine) (Heparin Vial(*)) 5,000 units SUBCUT Q8HR [facility] Insulin Human Lispro (Humalog*) 0 units SUBCUT AC SONJA Lactulose (Lactulose*) 30 ml PO DAILY SONJA Magnesium Oxide (Magox 400 Tab*) 400 mg PO DAILY [facility] Melatonin (Melatonin (Nf)) 3 mg PO BEDTIME [facility] Metoprolol Tartrate (Lopressor Tab*) 50 mg PO BID SONJA Morphine Sulfate (Morphine Vial*) 4 mg IV Q4H PRN Ondansetron HCl (Zofran Inj*) 4 mg IV Q4H PRN Oxycodone/Acetaminophen (Percocet 5/325 Tab*) 2 tab PO Q6H PRN Polyethylene Glycol/Electrolytes (Miralax*) 17 gm PO DAILY [facility] Throat Lozenges (Chloraseptic Bruno*) 1 bruno PO Q2H PRN Warfarin Sodium (Coumadin Tab(*)) 5 mg PO DAILY@1700 [facility] Vital Signs: Temp Pulse Resp BP Pulse Ox 97.9 F 83 18 168/73 95 11/28/17 07:15 11/28/17 07:15 11/28/17 08:44 11/28/17 07:15 11/28/17 07:56 Oxygen Devices in Use Now: None Appearance: Male sitting up in bed in NAD Eyes: No Scleral Icterus Ears/Nose/Mouth/Throat: Mucous Membranes Moist Neck: Trachea Midline Respiratory: Symmetrical Chest Expansion and Respiratory Effort, Clear to Auscultation Cardiovascular: NL Sounds; No Murmurs; No JVD, No Edema Abdominal: NL Sounds; No Tenderness; No Distention Lymphatic: No Cervical Adenopathy Extremities: No Edema Skin: - - Resolving vasculitic rash to L LE, dressing to R BKA CDI Neurological: Alert and Oriented x 3, NL Muscle Strength and Tone Nutrition: Taking PO's Result Diagrams: 11/27/17 15:44 11/28/17 05:19 Additional Lab and Data: . Microbiology and Other Data: . Diagnostic Imaging: . EKG Data: . Assess/Plan/Problems-Billing Assessment: Mr. Subramanian is a 67 y.o male with a history of DM, HTN and osteomylitis with poor wound healing on the right foot and sepsis, who is s/p right BKA with post operative course complicated by slowly rising creatinine. - Patient Problems (1) Osteomyelitis Comment: - S/P BKA, ortho following. - Pain controlled (2) ARF (acute renal failure) Comment: - Creatinine continues to rise steadily - unclear etiology. Renal US without hydronephrosis or nephrolithiasis, good urine output. No urine casts. - FeNa 1.8%, consistent with intrinsic cause, likely ATN due to infection or possibly vancomycin with underlying chronic kidney injury due to diabetes and hypertension. Urine eosinophils, KADE, ANCA, CRP and ESR pending (given presence of vasculitic rash)\ - Recommend close monitoring outpatient. (3) Sepsis Comment: - Resolved. - Patient met criteria for sepsis, secondary to osteomyelitis. - Vanco has been stopped per ID, levels should provide coverage until 11/27 - Repeat blood cx negative (4) Diabetes Comment: - BGs 120-200s. - Lispro SS and fingersticks - A1c 8.8 in 07/2017 (5) HTN (hypertension) Comment: - SBP 140-170s. - Hold lisinopril in the setting of PAWEL. Continue newly started amlodipine 10mg. Increased metoprolol to 50mg BID as well. Will likely need further adjustment outpatient. 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 - Completed 3 days prednisone, continue benadryl 25 mg po as needed for itching. (7) Tobacco abuse Comment: - nicotine patch (8) DVT prophylaxis Comment: - Per ortho team, needs to have DVT prophylaxis coverage for 1 month post-op. - Continue Warfarin 5mg tonight (9) Full code status Comment: Status and Disposition: Inpatient with worsening PAWEL. Discharge to [place].
[2017-11-28 13:35] VITALS: BP 144/60
--- NOTE | 2017-11-28 14:42 | PN ---
Progress Note - Progress Note Date of Service: 11/28/17 SOAP: Subjective: []Patient seen OOB in chair. He is comfortable and desires discharge. Denies feeling of fever, chills, CP, SOB, dizziness. Objective: [] Vital Signs Temp 98.4 F 11/28/17 11:11 Pulse 68 11/28/17 11:11 Resp 18 11/28/17 13:03 BP 144/60 11/28/17 11:11 Pulse Ox 91 11/28/17 11:11 Intake & Output 11/27/17 11/28/17 11/28/17 18:59 06:59 18:59 Intake Total 270 570 830 Output Total 1050 1450 1175 Balance -780 -810 -529 Intake: Oral 270 570 830 Output: Urine 1050 1450 1175 Other: Estimated Void Medium Estimated Stool Amount Medium # Voids 1 Laboratory Last Values WBC 8.8 10^3/ul (3.5-10.8) 11/24/17 05:02 RBC 3.78 10^6/ul (4.0-5.4) L 11/24/17 05:02 Hgb 10.2 g/dl (14.0-18.0) L 11/27/17 15:44 Hct 32 % (42-52) L 11/27/17 15:44 MCV 78 fL (80-94) L 11/24/17 05:02 MCH 26 pg (27-31) L 11/24/17 05:02 MCHC 33 g/dl (31-36) 11/24/17 05:02 RDW 15 % (10.5-15) 11/24/17 05:02 Plt Count 347 10^3/ul (150-450) 11/24/17 05:02 MPV 7.8 um3 (7.4-10.4) 11/24/17 05:02 Neut % (Auto) 67.5 % (38-83) 11/24/17 05:02 Lymph % (Auto) 19.8 % (25-47) L 11/24/17 05:02 Cloud % (Auto) 11.0 % (0-7) H 11/24/17 05:02 Eos % (Auto) 1.2 % (0-6) 11/24/17 05:02 Baso % (Auto) 0.5 % (0-2) 11/24/17 05:02 Absolute Neuts (auto) 6.0 10^3/ul (1.5-7.7) 11/24/17 05:02 Absolute Lymphs (auto) 1.7 10^3/ul (1.0-4.8) 11/24/17 05:02 Absolute Monos (auto) 1.0 10^3/ul (0-0.8) H 11/24/17 05:02 Absolute Eos (auto) 0.1 10^3/ul (0-0.6) 11/24/17 05:02 Absolute Basos (auto) 0 10^3/ul (0-0.2) 11/24/17 05:02 Absolute Nucleated RBC 0 10^3/ul 11/24/17 05:02 Nucleated RBC % 0 11/24/17 05:02 ESR 99 mm/Hr (0-40) H 11/15/17 21:43 INR (Anticoag Therapy) 1.48 (0.77-1.02) H 11/28/17 05:18 APTT 30.7 seconds (26.0-36.3) 11/22/17 05:33 Sodium 135 mmol/L (139-145) L 11/28/17 05:19 Potassium 5.2 mmol/L (3.5-5.0) H 11/28/17 05:19 Chloride 102 mmol/L (101-111) 11/28/17 05:19 Carbon Dioxide 28 mmol/L (22-32) 11/28/17 05:19 Anion Gap 5 mmol/L (2-11) 11/28/17 05:19 BUN 26 mg/dL (6-24) H 11/28/17 05:19 Creatinine 1.93 mg/dL (0.67-1.17) H 11/28/17 05:19 Est GFR ( Amer) 45.2 (>60) 11/28/17 05:19 Est GFR (Non-Af Amer) 35.1 (>60) 11/28/17 05:19 BUN/Creatinine Ratio 13.5 (8-20) 11/28/17 05:19 Glucose 135 mg/dL (70-100) H 11/28/17 05:19 POC Glucose (mg/dL) 164 mg/dL (70-100) H 11/28/17 11:49 POC Glucose Confirm 140 mg/dL (70-100) H 11/19/17 08:01 Lactic Acid 1.1 mmol/L (0.5-2.0) 11/15/17 21:43 Calcium 8.1 mg/dL (8.6-10.3) L 11/28/17 05:19 Magnesium 2.1 mg/dL (1.9-2.7) 11/22/17 05:33 C-Reactive Protein 107.56 mg/L (< 5.00) H 11/28/17 05:19 B-Natriuretic Peptide 327 pg/mL (-100) H 11/18/17 06:57 Urine Color Yellow 11/27/17 13:21 Urine Appearance Clear 11/27/17 13:21 Urine pH 7.0 (5-9) 11/27/17 13:21 Ur Specific [place] 1.012 (1.010-1.030) 11/27/17 13:21 Urine Protein 2+(100 mg/dl) (Negative) A 11/27/17 13:21 Urine Ketones Negative (Negative) 11/27/17 13:21 Urine Blood 2+ (Negative) A 11/27/17 13:21 Urine Nitrate Negative (Negative) 11/27/17 13:21 Urine Bilirubin Negative (Negative) 11/27/17 13:21 Urine Urobilinogen Negative (Negative) 11/27/17 13:21 Ur Leukocyte Esterase Negative (Negative) 11/27/17 13:21 Urine WBC (Auto) 1+(6-10/hpf) (Absent) A 11/27/17 13:21 Urine RBC (Auto) 3+(>10/hpf) (Absent) A 11/27/17 13:21 Urine Bacteria Absent (Absent) 11/27/17 13:21 Ur Random Creatinine 52.58 mg/dL 11/26/17 12:00 Ur Random Sodium 81 mmol/L 11/26/17 12:00 Urine Glucose 1+(50 mg/dl) (Negative) A 11/27/17 13:21 Vancomycin Trough 20.1 mcg/mL 11/24/17 08:25 Influenza A (Rapid) Negative (Negative) 11/18/17 12:44 Influenza B (Rapid) Negative (Negative) 11/18/17 12:44 General: Well appearing, NAD RLE: Splint loose, marysol bandage unwrapped and splint adjusted back into place, ABD's placed to protect skin. Kerlex dressing remaining over incision/ stump is CDI. Thigh soft and no erythema or edema noted. Assessment: [] 67 yo male s/p right BKA by Dr. Sanon 11/22/17 Plan: OOB OT/PT NWB RLE DVT prophylaxis - Heparin bridge to coumadin Off of antibiotics, to contact ID & ortho if wound or redness at amputation site. [place] swing today per medicine FU with Dr Sanon 2 weeks post op
--- NOTE | 2017-11-28 14:51 | DS ---
CC: Dr. Cavanaugh* DISCHARGE SUMMARY: DATE OF ADMISSION: 11/15/17 DATE OF DISCHARGE: 11/28/17 PRIMARY CARE PHYSICIAN: Dr. Cavanaugh. ATTENDING PHYSICIAN: Dr. Dequan Grigsby* (dictation provided by Beckie Lyons NP ). PRIMARY DIAGNOSES: 1. Status post right below the knee amputation with osteomyelitis and history of type 2 diabetes. 2. Acute kidney injury, intrinsic cause, likely acute tubular necrosis. SECONDARY DIAGNOSES: 1. Right foot osteomyelitis. 2. Type 2 diabetes. 3. Hypertension. 4. Staphylococcus bacteremia diagnosed on 11/01/17. PAST SURGICAL HISTORY: 1. 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 2. Left first toe amputation. 3. Right metatarsal amputation. MEDICATIONS: 1. Cetirizine 10 mg p.o. daily. 2. Pravastatin 40 mg p.o. daily. 3. Oxycodone with acetaminophen 5/325 one tab p.o. q. 8 hours p.r.n. 4. Senna 1 tab p.o. at bedtime. 5. MiraLAX 17 g p.o. daily. 6. Nicotine patch 14 g transdermally daily. 7. Colace 200 mg p.o. at bedtime. 8. Tylenol 500 mg p.o. q. 6 hours p.r.n. 9. Omeprazole 20 mg p.o. b.i.d. 10. Mucinex 600 mg p.o. b.i.d. p.r.n. 11. Diphenhydramine 25 mg p.o. q. 8 hours p.r.n. 12. Amlodipine 10 mg p.o. daily (new medication). 13. Warfarin 5 mg p.o. daily (new medication, most recent INR 1.48 on 11/28/17) . 14. Metoprolol tartrate 50 mg p.o. b.i.d. (new medication). 15. Melatonin 3 mg p.o. at bedtime. 16. Magnesium oxide 400 mg p.o. daily. 17. Lactulose 30 mL p.o. daily. 18. Lantus 5 units subcutaneously daily (new medication). 19. Neurontin 300 mg p.o. b.i.d. (new medication). 20. Colace 200 mg p.o. b.i.d. p.r.n. 21. Cyclobenzaprine 10 mg p.o. t.i.d. p.r.n. 22. Dulcolax suppository p.r.n. 23. Benzonatate 200 mg p.o. t.i.d. p.r.n. 24. Chloraseptic lozenges p.o. q. 2 hours p.r.n. HOSPITAL COURSE: Mr. Subramanian is a 67-year-old male with past medical history of diabetes, hypertension, and ongoing issues with osteomyelitis to his right lower extremity, who is transferred from [facility] on 11/15/17 out of concern for worsening sepsis in setting of treatment for staph bacteremia related to osteomyelitis of the right lower extremity. Please see the dictated H and P from Ariana Bee NP, for complete details. In brief, while at [facility], the patient had fever of 102.3 and became tachycardic, with suspicion for worsening infection. He had been on antibiotics at [facility] for the past 2 weeks prior to admission. In addition to antibiotics, he had been seen by Dr. Barth from orthopedics for continued management of right foot ulcer and was noted to have drainage of an abscess immediately prior to admission as well. Patient is also followed by Dr. Montilla. It was noted prior to admission that patient developed a rash on his lower extremities, thought to be secondary to Ancef per Dr. Montilla. At that time, patient was transitioned over to vancomycin. Plans were for Mr. Subramanian to have a right BKA on 11/19/17, but given concern for increased infection, the patient was transferred to [facility]. Mr. Subramanian initially had labs showing white blood cell count only of 11.2, his ESR was 99. His CRP was 121.73. His labs were otherwise unremarkable. He was afebrile initially. Patient had been noted to have a MSSA staph bacteremia at [facility] on 11/01/17. Repeat cultures on 11/15/17 were negative. Mr. Subramanian was seen in consultation by Dr. Montilla from Infectious Diseases who again noted that the lower extremity rash was improving and that it was likely secondary to Ancef. He recommended that the patient continue on vancomycin for osteomyelitis until his BKA and that we also provide 3 days of prednisone at 20 mg a day for his vasculitic rash. Initially the plan was to have the patient go to the OR on 11/19/17 for a right BKA; however, on 11/18/17, the patient developed a cough with sore throat and reported not feeling well. It was suspected that the patient had an upper respiratory infection that was likely viral. His flu swab was negative. A portable chest x-ray showed no infiltrate or other acute process. He was given Mucinex and Chloraseptic for symptomatic relief. This, however, caused delay in surgery, which ultimately happened on 11/22/17. I will note the patient was seen also seen preoperatively by Dr. Alvarez from cardiac services, who did provide cardiac risk stratification and optimization, noting that he was high risk but that there was no indication for any further cardiac testing. Mr. Subramanian did finally go on for his right BKA on 11/22/17 and tolerated the procedure well. He has continued to be seen by Dr. Montilla, who recommended the patient discontinue vancomycin on 11/25/17, which has been done. In the postoperative period, Mr. Subramanian has developed an acute kidney injury. His original creatinine was 0.81 on arrival, however, on the day of surgery on 11/22, the patient's creatinine was1.21 and since then has steadily increased and today the value was 1.93. For this, a FENa was checked, which showed random creatinine of 52.58 and urine random sodium of 81, which makes the FENa of 1.8% , consistent with intrinsic injury likely ATN. Patient has no evidence of infection. He has no evidence of obstruction. A renal ultrasound was obtained showed no evidence of hydronephrosis or nephrolithiasis. Patient is not on any nephrotic agents and medications including his lisinopril have been discontinued. Patient is urinating well. It is likely that Mr. Subramanian has acute kidney injury secondary to his longstanding history of uncontrolled diabetes as well as hypertension with insults likely obtained with some poor forward flow and dehydration in and around the time of surgery, and/or an injury related to vancomycin. At this time, patient is medically stable for discharge to home, but I have discussed with his primary care physician and his attending physician at [facility] , Dr. Ashish Cavanaugh. I will also note that Mr. Subramanian's metformin and Jardience have been held while in the hospital and he blood glucose has been 140-200s. At this point I have recommending that he start lantus 5 units daily while he has an acute kidney injury. In addition, his blood pressure has been elevated while off lisinopril and he has been started on amlodipine and metoprolol. Mr. Subramanian has been started on warfarin by orthopedic services and they recommended 1 month of therapy. Today his INR is 1.48. He has been on the medication for 2 days. I think we can continue with 5 mg and recheck in 2 to 3 days and adjust the medication as needed. Mr. Subramanian is medically stable for discharge to [facility] status. DISPOSITION: [facility]. DIET: Low fat, low salt, consistent carbohydrate. ACTIVITY: As tolerated. FOLLOWUP PLANS: Patient will be following up with Dr. Crowe in about 14 days postoperatively with the surgery date being 11/22/17. He is to continue on DVT prophylaxis for 1 month postop. He is nonweightbearing on the right lower extremity. TIME SPENT: Approximately 60 minutes was spent in the discharge of this patient , more than half the time was spent with the patient at the bedside reviewing the events leading up to and during this hospitalization, performing the physical examination, and reviewing the plan of care. BECKIE LYONS NP [id number]/DAWNA #: [id number] NICOLE
== END 2017-11-28 14:05 | DRG 474 ==
LOC: MEDTELE 18:12 → SSU 11-22 18:22
PROVIDERS: ADMIT Internal Medicine; ATTEND Internal Medicine
PROC: 0H9KXZX Drainage of Right Lower Leg Skin, External Approach, Diagnostic (ICD-10-PCS; 2017-11-15)
PROC: 0Y6H0Z1 Detachment at Right Lower Leg, High, Open Approach (ICD-10-PCS; principal; 2017-11-22 12:45)
DX: T87.43 Infection of amputation stump, right lower extremity (principal); N17.0 Acute kidney failure with tubular necrosis; A41.01 Sepsis due to Methicillin susceptible Staphylococcus aureus; J81.1 Chronic pulmonary edema; M86.171 Other acute osteomyelitis, right ankle and foot; L97.818 Non-pressure chronic ulcer of other part of right lower leg with other specified severity; E11.52 Type 2 diabetes mellitus with diabetic peripheral angiopathy with gangrene; N17.9 Acute kidney failure, unspecified; I10 Essential (primary) hypertension; I35.0 Nonrheumatic aortic (valve) stenosis; E11.69 Type 2 diabetes mellitus with other specified complication; A49.01 Methicillin susceptible Staphylococcus aureus infection, unspecified site; E11.40 Type 2 diabetes mellitus with diabetic neuropathy, unspecified; E11.65 Type 2 diabetes mellitus with hyperglycemia; I25.10 Atherosclerotic heart disease of native coronary artery without angina pectoris; J44.9 Chronic obstructive pulmonary disease, unspecified; K21.9 Gastro-esophageal reflux disease without esophagitis; E11.622 Type 2 diabetes mellitus with other skin ulcer; I45.10 Unspecified right bundle-branch block; I77.6 Arteritis, unspecified; B97.4 Respiratory syncytial virus as the cause of diseases classified elsewhere; E86.0 Dehydration; R94.31 Abnormal electrocardiogram [ECG] [EKG]; F41.9 Anxiety disorder, unspecified; Y79.3 Surgical instruments, materials and orthopedic devices (including sutures) associated with adverse incidents; T36.1X5A Adverse effect of cephalosporins and other beta-lactam antibiotics, initial encounter; R21 Rash and other nonspecific skin eruption; Z79.01 Long term (current) use of anticoagulants; Z79.4 Long term (current) use of insulin; Z89.511 Acquired absence of right leg below knee; Z89.211 Acquired absence of right upper limb below elbow; Z89.422 Acquired absence of other left toe(s); Z91.041 Radiographic dye allergy status; Z87.891 Personal history of nicotine dependence; Z88.8 Allergy status to other drugs, medicaments and biological substances; Y92.9 Unspecified place or not applicable; J06.9 Acute upper respiratory infection, unspecified; Z89.021 Acquired absence of right finger(s)
CPT/HCPCS: 36415; 71045; 71046; 76775; 80048; 80202; 81003; 81015; 82565; 82570; 82947; 83605; 83735; 83880; 84300; 84520; 85014; 85018; 85025; 85610; 85652; 85730; 86038; 86140; 86255; 87040; 87070; 87086; 87502; 88307; 88311; 90686; 90732; 93005; 93312; 93325; 99156; A9270-GY; G8978-GP-CJ; G8979-GP-CJ; G8980-GP-CJ; G8987-GO-CL; G8988-GO-CJ; J0360; J0456; J0696; J1170; J1200; J1644; J1885; J1940; J2250; J2270; J2310; J2405; J2704; J3010; J3370; J7512